=== PATIENT | female | born 1945 | race Caucasian/White ===

== ENCOUNTER 2023-12-16 12:44 | Outpatient (CLI) | payer MEDICARE, SELFPAY | END 2023-12-16 12:45 | disposition home or self-care (01) | LOC: ANHAUDASC 12:45 | PROVIDERS: Visit Provider Otolaryngology | DX: H90.3 Sensorineural hearing loss, bilateral (principal); H60.90 Unspecified otitis externa, unspecified ear | CPT/HCPCS: 92557; 92567 ==

== ENCOUNTER 2024-03-07 10:30 | Outpatient (RCR) | payer SELFPAY | END 2024-04-18 23:59 | disposition home or self-care (01) | LOC: ANHAUDASC 10:30 | PROVIDERS: Visit Provider Otolaryngology | DX: Z46.1 Encounter for fitting and adjustment of hearing aid (principal) | CPT/HCPCS: 99199; V5261; V5264 ==

== ENCOUNTER 2024-08-10 11:42 | Outpatient (CLI) | payer MEDICARE, SELFPAY ==
--- NOTE | ~2024-08-10 | XR_ITS ---
XR hip LT min 2V Ordering provider: SHEELA Stafford History: . M25.552 - Pain in left hip . Comparison: None. FINDINGS: BONES: No acute fracture or dislocation. HIP JOINT SPACES: Mild to moderate osteoarthritic changes. SACROILIAC JOINT SPACES/LUMBAR SPINE: The sacroiliac joint spaces shows sacroiliitis in the left. Mil d degenerative changes of the visualized lower lumbar spine. PUBIC SYMPHYSIS: Normal. SOFT TISSUES: Normal. IMPRESSION: No acute osseous abnormality pelvis and left hip. 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 Left sacroiliitis. Reviewed, dictated and finalized at location A.
== END 2024-08-10 11:43 | disposition home or self-care (01) ==
LOC: GOSHIMG 11:43
PROVIDERS: PCP Clinical Nurse Specialist; Visit Provider Clinical Nurse Specialist
DX: M16.12 Unilateral primary osteoarthritis, left hip (principal)
CPT/HCPCS: 73502

== ENCOUNTER 2024-08-31 11:08 | Emergency (ER) | payer MEDICARE, SELFPAY ==
[2024-08-31 11:19] VITALS: BP 125/62; PULSE 67; RESP 18; TEMP 36.5; O2SAT 99
--- NOTE | 2024-08-31 11:34 | ED_ITS ---
HPI - Ear Problem General Chief complaint: Ear Stated complaint: Ears Irritation Time Seen by Provider: 08/31/24 11:34 Source: patient, RN notes reviewed and old records reviewed Mode of arrival: ambulatory Limitations: no limitations History of Present Illness HPI Narrative: Patient presents requesting that bilateral cerumen impactions be cleared. She reports that her education spec told her to come here yesterday. Denies any pain. No other complaints today Related Data Home Medications Medication Instructions Recorded Confirmed bimatoprost 0.01 % eye drops 1 drp EACH EYE QPM 08/11/23 08/31/24 (Lumigan) famotidine 40 mg tablet 40 mg PO QHS 08/11/23 08/31/24 losartan 25 mg tablet 25 mg PO DAILY 08/11/23 08/31/24 pravastatin 10 mg tablet 10 mg PO DAILY 08/11/23 08/31/24 Allergies Allergy/AdvReac Type Severity Reaction Status Date / Time alprazolam [From Xanax] Allergy Intermediate Unknown Verified 08/31/24 11:14 effexor Allergy Intermediate Unknown Uncoded 08/31/24 11:14 naproxin Allergy Intermediate Unknown Uncoded 08/31/24 11:14 Review of Systems Review of Systems: All systems reviewed & are unremarkable except as noted in HPI and below Constitutional: Constitutional: Reports no additional constitutional complaints ENT: Reports system reviewed and no additional complaints, except as documented and Reports hearing loss Cardiovascular: Cardiovascular: Reports no additional cardiovascular complaints Respiratory: Respiratory: Reports no additional respiratory complaints Gastrointestinal: Gastrointestinal: Reports no additional gastrointestinal complaints PMFSH Past Medical History Medical History Depression GERD (gastroesophageal reflux disease) Hyperlipidemia Hypertension Kidney disorder Overactive bladder Trigger finger Surgical History Surgical History H/O breast biopsy H/O section (~1975) H/O: hysterectomy (~1993) History of carpal tunnel release Family History Family History (Updated 08/29/24 @ 07:34 by Justine Reed CMA) Father Diabetes mellitus Heart disease Mother Heart disease Social History Social History Social History: Caffeine-coffee/tea/soda Smoking status: Never smoker Alcohol intake: never Substance use: never Substance use type: does not use Lack of Transportation: No Lack of Food: Never True Current Housing: I Have Housing Concerned About Future Housing: No Difficulty Paying Gas/Electric Bills: No Difficulty Paying for Meds: No Currently Unemployed: No Education: Bachelor's Degree Difficulty w/ Childcare or Family Care: No Living arrangements: alone Gender identity (if verbalized by the patient): Female Agree to blood products: Yes Comments At the time of my signature, I reviewed and agree with the nursing past medical, surgical, social, and family history. There is no relevant family history pertinent to the patient complaint. Exam Const: General: cooperative, no acute distress, alert and awake Orientation/consciousness: oriented to person, oriented to place and oriented to time HENMT: Head: normal to inspection Ears: Abnormal EAC present cerumen im paction bilateral Resp: Effort & Inspection: normal respiratory effort and able to speak in complete sentences Auscultation: clear to auscultation bilaterally, no crackles, no rales, no rhonchi and no wheezes Cardio: Palpation: normal PMI Rate: regular rate Rhythm: regular rhythm Heart sounds: S1 normal heart sound present and S2 normal heart sound present Neuro: General: oriented to person, oriented to place and oriented to time Cranial nerves: Yes CN's II-XII intact bilaterally Psych: Appearance: grossly normal Thought process: Normal thought process present Insight: Good insight present (Psych) Judgement: Good judgement present (Psych) Course Course Level of Care: Express Care Visit Vital Signs Vital signs: Vital Signs Temperature 97.7 F 08/31/24 11:19 Pulse Rate 67 08/31/24 11:19 Respiratory Rate 18 08/31/24 11:19 Blood Pressure 125/62 08/31/24 11:19 Pulse Oximetry 99 08/31/24 11:19 Oxygen Delivery Room Air 08/31/24 11:19 Temperature 97.7 F 08/31/24 11:19 Pulse Rate 67 08/31/24 11:19 Respiratory Rate 18 08/31/24 11:19 Blood Pressure 125/62 08/31/24 11:19 Pulse Oximetry 99 08/31/24 11:19 Oxygen Delivery Room Air 08/31/24 11:19 Reviewed Procedures Ear Wax Removal Both Ears: Ear Wax Removal Date: 11/22/24 Ear Wax Removal Time: 11:40 Cerumenolytic Used: other Results: Re-examined: cerumen removed completely TM Examination: TM(s) intact, normal appearance Ear Canal Exam: atraumatic Patient Tolerated Procedure: well Complications: no problems Technique: ear canal irrigated and ear canal curetted Medical Decision Making MDM Narrative Medical decision making narrative: Discharge instructions reviewed with patient, as well as provided in writing per nursing staff. The instructions also include specific and strict return/GO TO THE ER as well as f/u information. All questions have been answered, and the patient deny any further questions with discharge and discharge plan. Some parts of this dictation were generated by voice recognition software and may contain typographical and/or grammatical inaccuracies. Medical Records Medical records reviewed: Yes I reviewed the external patient's medical records. Vital Signs Vital Signs: Vital Signs Temperature 97.7 F 08/31/24 11:19 Pulse Rate 67 08/31/24 11:19 Respiratory Rate 18 08/31/24 11:19 Blood Pressure 125/62 08/31/24 11:19 Pulse Oximetry 99 08/31/24 11:19 Oxygen Delivery Room Air 08/31/24 11:19 Temperature 97.7 F 08/31/24 11:19 Pulse Rate 67 08/31/24 11:19 Respiratory Rate 18 08/31/24 11:19 Blood Pressure 125/62 08/31/24 11:19 Pulse Oximetry 99 08/31/24 11:19 Oxygen Delivery Room Air 08/31/24 11:19 reviewed Lab Data Lab results reviewed: Yes I reviewed the patient's lab results. Lab results narrative: reviewed Discharge Plan Discharge Clinical Impression: Bilateral impacted cerumen Patient Disposition: Home, Self-Care Condition: Stable Instructions: Antibiotic Form Additional Instructions: Follow-up as recommended Patient Language: Danish Prescriptions: No Action famotidine 40 mg tablet 40 mg PO QHS pravastatin 10 mg tablet 10 mg PO DAILY losartan 25 mg tablet 25 mg PO DAILY Lumigan 0.01 % drops 1 drp EACH EYE QPM fluocinolone acetonide oil [DermOtic Oil] 0.01 % drops 5 drp RIGHT EAR .COMPLEX Qty: 20 0RF Rx Instructions: 5 drops, right ear, several times per week. Max, 5 drops daily. clotrimazole 1 % solution 1 applic topical BID Qty: 30 2RF Rx Instructions: put 4 drops in each ear b.i.d. with ear up for 1 minute afterwards escitalopram oxalate 10 mg tablet 10 mg PO DAILY Qty: 90 0RF azelastine 137 mcg (0.1 %) aerosol,spray 1 - 2 spray intranasal Q12H Qty: 90 0RF Rx Instructions: administer into each nostril. Aim back/up/out polyethylene glycol 3350 17 gram/dose powder See Rx Instructions .ROUTE .COMPLEX Qty: 510 4RF Dose Instruction: MIX 1 CAPFUL IN 4-8 OZ OF LIQUID ONCE DAILY NEEDED FOR CONSTIPATION Rx Instructions: MIX 1 CAPFUL IN 4-8 OZ OF LIQUID ONCE DAILY NEEDED FOR CONSTIPATION mirabegron [Myrbetriq] 25 mg tablet extended release 24 hr 25 mg PO DAILY Qty: 30 1RF Follow-up/Referrals: Eri Che, SAFETY AND OCCUPATIONAL HEALTH MANAGER-C [Primary Care Provider] - 2 Weeks Time of Disposition: 11:54
== END 2024-08-31 12:10 | disposition home or self-care (01) ==
PROVIDERS: Emergency Provider Nurse Practitioner Family; PCP Clinical Nurse Specialist
DX: H61.23 Impacted cerumen, bilateral (principal); I10 Essential (primary) hypertension; E78.5 Hyperlipidemia, unspecified; Z79.899 Other long term (current) drug therapy
CPT/HCPCS: 69210; 99212; G0463

== ENCOUNTER 2024-11-08 15:19 | Outpatient (NON) | payer MEDICARE, SELFPAY ==
--- OUTSIDE RECORDS SUMMARY | 2024-11-08 15:41 | XMS_ITS | Clinical Summary ---
Author Organization [facility] Address [address] [place] [address] Care Team Providers Care Bunch Breaker Name Role Phone Nemo Luu MD Primary Care Provider [phone] Source Comments [facility],non-owned Affiliates and Associated Physician Practices is amultiple site organization consisting of ambulatory clinics and hospital sitesin [place], [place], [place] and [place]. This disclosure is being madepursuant to the Care Everywhere program and may not contain all information available regarding this patient. Last updated 18.[facility] Encounters Date Type Department Care Team Description 08/20/2024 Lab Requisition [facility] - DermPath Lab [address], [place] [id number] Carroll Jamison MD from Last 3 Months Social History Tobacco Use Types Packs/Day Years Used Date Smoking Tobacco: Never Assessed Sex and Gender Information Value Date Recorded Sex Assigned at Not on file Gender Identity Not on file Sexual Orientation Not on file Plan of Treatment Health Maintenance Due Date Last Done Comments BONE DENSITY TESTING 1945 HEPATITIS C SCREENING 01/17/1964 DTAP/TDAP/TD VACCINES (1 - Tdap) 1965 PNEUMOCOCCAL VACCINE 50+ (1 of 1 - PCV) 01/22/1996 ZOSTER VACCINE (1 of 2) 01/22/1996 Respiratory Syncytial Virus (RSV) Vaccine Pt: or over 60 yrs (1 - 1-dose 75+ series) 2021 COVID-19 VACCINE ( - 2023-2 5 season) 2024 INFLUENZA VACCINE (#1) 2024 DEPRESSION SCREENING 10/10/2024 MEDICARE AWV ? CALENDAR YEAR 2024 HEPATITIS B VACCINE Aged Out No longe r eligible based on patient's age to complete this topic HIB VACCINE Aged Out No longer eligi ble based on patient's age to complete this topic HPV VACCINE Aged Out No longer eligi ble based on patient's age to complete this topic MENINGOCOCCAL (Group B) VACCINE Aged Out No longer eligible based on patient's age to complete this topic MENINGOCOCCAL VACCINE Aged Out No michelle brad eligible based on patient's age to complete this topic Procedures Procedure Name Priority Date/Time Associated Diagnosis Comments DERMATOPATHOLOGY Routine 08/17/2024 12:0 0 AM IT INTERN from Last 3 Months Results * DERMATOPATHOLOGY (08/17/2024 12:00 AM IT INTERN) Case Report Dermatopathology Report ? Case: [id number] ? Authorizing Provider: ??Carroll Jamison MD ?Collected: ? 08/17/2024 12:00 AM ? Ordering Location: ? [facility] - ??Received: ?08/20/2024 02:20 PM ? DermPath Lab ? Pathologist: ? Fifi Harley MD ? Specimen: ?Skin, right posterior base of scalp @ hairline ? 4 3:16 PM [facility] DERMATOPATHOLOGY LABORATORY Final Diagnosis Specimen A. SKIN, right posterior base of scalp @ hairline: RUPTURED EPIDERMOID CYST (L72.0) PRESENT AT MARGIN 4 3:16 PM [facility] DERMATOPATHOLOGY LABORATORY Clinical History R/O BCC vs Cyst Please check margins 4 3:16 PM [facility] DERMATOPATHOLOGY LABORATORY Gross Description Specimen A: Received is one formalin filled container labeled with the patients name and designated right posterior base of scalp @ hairline. The specimen consists of a shave removal measuring 6x5x2 mm. Jar 0. 3:16 PM [facility] DERMATOPATHOLOGY LABORATORY Microscopic Description Specimen A. SKIN, right posterior base of scalp @ hairline: Within the dermis, there is an infiltrate composed of lymphocytes and histiocytes, including multinucleated type giant cells. Some histiocytes contain flakes of material consistent with keratin. This lesion is present at the margin of the specimen. 4 3:16 PM [facility] DERMATOPATHOLOGY LABORATORY Disclaimer An external and internal positive and negative controls are appropriate for the histochemical, immunohistochemical and immunofluorescence stain(s) in this case (if any), except where stated explicitly. The performance characteristics of the stain(s) cited in this report were developed and its performance characteristic determined by the Dermatopathology Laboratory at [facility], directed by Dr. Charlette Arteaga. These tests need not be, and therefore are not, approved by the [place] Food and Drug Administration. The tests are used for clinical purposes. Billing Codes Specimen Charges Stain Charges 14825 1 4 3:16 PM [facility] DERMATOPATHOLOGY LABORATORY Embedded Images 4 3:16 PM [facility] DERMATOPATHOLOGY LABORATORY Pathology/Cytolog y TISSUE SPECIMEN FROM SKIN / Unknown 08/17/2024 08/20/2024 2:20 PM [facility] Carroll Jamison MD LAB - PATHOLOGY/CYTO LOGY ORDERABLES DERMATOPATHOLOGY LABORATORY [facility] - Department of Dermatology [address], [address] Floor [place] [phone] from Last 3 Months Care Teams Bunch Breaker Relationship Specialty Start Date End Date Nemo Luu MD [address] [place] [phone] PCP - General 02/21/15
--- OUTSIDE RECORDS SUMMARY | 2024-11-08 15:41 | XMS_ITS | Patient Health Summary ---
Author Organization [facility] Address [address] [place] [address] Care Team Providers Care Auriculotherapist Name Role Phone Nemo Luu MD Primary Care Provider Note from [facility] [place],non-owned Affiliates and Associated Physician Practices is amultiple site organization consisting of ambulatory clinics and hospital sitesin [place], [place], [place] and [place]. This disclosure is being madepursuant to the Care Everywhere program and may not contain all information available regarding this patient. Last updated 18.[facility] Social History Tobacco Use Types Packs/Day Years Used Date Smoking Tobacco: Never Assessed Sex and Gender Information Value Date Recorded Sex Assigned at Not on file Gender Identity Not on file Sexual Orientation Not on file Procedures * DERMATOPATHOLOGY(Performed 08/17/2024) * DERMATOPATHOLOGY(Performed 02/20/2015) Results * DERMATOPATHOLOGY (08/17/2024 12:00 AM TENNIS INSTRUCTOR) Only the most recent of2 resultswithin the time period is included. Case Report Dermatopathology Report ? Case: [id number] ? Authorizing Provider: ??Carroll Jamison MD ?Collected: ? 08/17/2024 12:00 AM ? Ordering Location: ? [facility] - ??Received: ?08/20/2024 02:20 PM ? DermPath Lab ? Pathologist: ? Fifi Harley MD ? Specimen: ?Skin, right posterior base of scalp @ hairline ? 4 3:16 PM [facility] DERMATOPATHOLOGY LABORATORY Final Diagnosis Specimen A. SKIN, right posterior base of scalp @ hairline: RUPTURED EPIDERMOID CYST (L72.0) PRESENT AT MARGIN 4 3:16 PM [facility] DERMATOPATHOLOGY LABORATORY Clinical History R/O BCC vs Cyst Please check margins 4 3:16 PM [facility] DERMATOPATHOLOGY LABORATORY Gross Description Specimen A: Received is one formalin filled container labeled with the patients name and designated right posterior base of scalp @ hairline. The specimen consists of a shave removal measuring 6x5x2 mm. Jar 0. 4 3:16 PM [facility] DERMATOPATHOLOGY LABORATORY Microscopic Description Specimen A. SKIN, right posterior base of scalp @ hairline: Within the dermis, there is an infiltrate composed of lymphocytes and histiocytes, including multinucleated type giant cells. Some histiocytes contain flakes of material consistent with keratin. This lesion is present at the margin of the specimen. 4 3:16 PM [facility] DERMATOPATHOLOGY LABORATORY Disclaimer An external and internal positive and negative controls are appropriate for the histochemical, immunohistochemical and immunofluorescence stain(s) in this case (if any), except where stated explicitly. The performance characteristics of the stain(s) cited in this report were developed and its performance characteristic determined by the Dermatopathology Laboratory at [facility], directed by Dr. Charlette Arteaga. These tests need not be, and therefore are not, approved by the [place] Food and Drug Administration. The tests are used for clinical purposes. Billing Codes Specimen Charges Stain Charges 53415 1 4 3:16 PM [facility] DERMATOPATHOLOGY LABORATORY Embedded Images 3:16 PM [facility] IN[facility] DERMATOPATHOLOGY LABORATORY Pathology/Cytolog y TISSUE SPECIMEN FROM SKIN / Unknown 08/17/2024 08/20/2024 2:20 PM TENNIS INSTRUCTOR Carroll Jamison MD LAB - PATHOLOGY/CYTO LOGY ORDERABLES DERMATOPATHOLOGY LABORATORY [facility] - Department of Dermatology [facility] Medicine [address] [place] [address], [address] [phone] Care Teams Auriculotherapist Relationship Specialty Start Date End Date Nemo Luu MD [address] [place] [phone] PCP - General 02/21/15
--- OUTSIDE RECORDS SUMMARY | 2024-11-08 15:41 | XMS_ITS | Referral Summary ---
Author Organization [facility] Address [address] [place] [address] Care Team Providers Care Pharmacy Coordinator Name Role Phone Nemo Luu MD Primary Care Provider Source Comments [facility],non-owned Affiliates and Associated Physician Practices is amultiple site organization consisting of ambulatory clinics and hospital sitesin [place], [place], [place] and [place]. This disclosure is being madepursuant to the Care Everywhere program and may not contain all information available regarding this patient. Last updated 18.[facility] Encounters Date Type Department Care Team Description 08/20/2024 Lab Requisition [facility] - DermPath Lab [address] [place] [phone] Carroll Jamison MD from Last 3 Months Social History Tobacco Use Types Packs/Day Years Used Date Smoking Tobacco: Never Assessed Sex and Gender Information Value Date Recorded Sex Assigned at Not on file Gender Identity Not on file Sexual Orientation Not on file Plan of Treatment Not on file Procedures Procedure Name Priority Date/Time Associated Diagnosis Comments DERMATOPATHOLOGY Routine 08/17/2024 12:0 0 AM SENIOR SYSTEMS PROGRAMMER from Last 3 Months Results * DERMATOPATHOLOGY (08/17/2024 12:00 AM SENIOR SYSTEMS PROGRAMMER) Case Report Dermatopathology Report ? Case: [id number] ? Authorizing Provider: ??Carroll Jamison MD ?Collected: ? 08/17/2024 12:00 AM ? Ordering Location: ? [facility] - ??Received: ?08/20/2024 02:20 PM ? DermPath Lab ? Pathologist: ? Fifi Harley MD ? Specimen: ?Skin, right posterior base of scalp @ hairline ? 4 3:16 PM [facility] DERMATOPATHOLOGY LABORATORY Final Diagnosis Specimen A. SKIN, right posterior base of scalp @ hairline: RUPTURED EPIDERMOID CYST (L72.0) PRESENT AT MARGIN 4 3:16 PM [facility] DERMATOPATHOLOGY LABORATORY Clinical History R/O BCC vs Cyst Please check margins 4 3:16 PM [facility] DERMATOPATHOLOGY LABORATORY Gross Description Specimen A: Received is one formalin filled container labeled with the patients name and designated right posterior base of scalp @ hairline. The specimen consists of a shave removal measuring 6x5x2 mm. Jar 0. 4 3:16 PM [facility] DERMATOPATHOLOGY LABORATORY Microscopic Description Specimen A. SKIN, right posterior base of scalp @ hairline: Within the dermis, there is an infiltrate composed of lymphocytes and histiocytes, including multinucleated type giant cells. Some histiocytes contain flakes of material consistent with keratin. This lesion is present at the margin of the specimen. 4 3:16 PM SENIOR SYSTEMS PROGRAMMER DERMATOPATHOLOGY LABORATORY Disclaimer An external and internal positive and negative controls are appropriate for the histochemical, immunohistochemical and immunofluorescence stain(s) in this case (if any), except where stated explicitly. The performance characteristics of the stain(s) cited in this report were developed and its performance characteristic determined by the Dermatopathology Laboratory at [facility], directed by Dr. Charlette Arteaga. These tests need not be, and therefore are not, approved by the [place] Food and Drug Administration. The tests are used for clinical purposes. Billing Codes Specimen Charges Stain Charges 27179 1 4 3:16 PM SENIOR SYSTEMS PROGRAMMER DERMATOPATHOLOGY LABORATORY Embedded Images 4 3:16 PM SENIOR SYSTEMS PROGRAMMER DERMATOPATHOLOGY LABORATORY Pathology/Cytolog y TISSUE SPECIMEN FROM SKIN / Unknown 08/17/2024 08/20/2024 2:20 PM SENIOR SYSTEMS PROGRAMMER Carroll Jamison MD LAB - PATHOLOGY/CYTO LOGY ORDERABLES Performing Organization Address City/State/[facility] Co de Phone Number DERMATOPATHOLOGY LABORATORY [facility] - Department of Dermatology [facility] Medicine [address] [place] [address], [address] [phone] from Last 3 Months Care Teams Pharmacy Coordinator Relationship Specialty Start Date End Date Nemo Luu MD [address] [facility] [address] [place] [phone] PCP - General 02/21/15
--- OUTSIDE RECORDS SUMMARY | 2024-11-08 15:41 | XMS_ITS | Clinical Summary ---
Author Organization [facility] Address [address] [place] [address] Phone Care Team Providers Care Clinical Documentation Clerk Name Role Phone Deepthi Benites MD Primary Care Provider Allergies No known active allergies Medications Medication Sig Dispensed Refills Start Date End Date Status B Bwppnur-Xwfjjo-PU (SUPER B-50 B COMPLEX) capsule 11/22/2012 Active citalopram (CeleXA) 20 MG tablet 1 tablet (20 mg) orally daily 0 09/22/2016 Active bimatoprost (LUMIGAN) 0.01 % ophthalmic drops 11/22/2012 Active L-Lysine 1000 MG tablet 11/22/2012 Active calcium citrate (CALCITRATE) 950 MG tablet 1 bid 11/22/2012 Active Multiple Vitamin (MULTIVITAMIN) capsule 11/22/2012 Ac tive pravastatin (PRAVACHOL) 10 MG tablet 1 daily 12 10/11/2017 Active hyoscyamine (ANASPAZ) 0.125 MG disintegrating tablet 11/22/2012 Act angeline omega-3 (FISH OIL) 1000 MG capsule 11/22/2012 Active losartan (COZAAR) 25 MG tablet 1 tab/cap qday 3 02/20/2014 Active tolterodine LA (DETROL LA) 4 MG 24 hr capsule 1 capsule (4 mg) orally daily 0 09/22/2016 Active FLUZONE HIGH-DOSE 0.5 ML suspension prefilled syringe ADM 0.5ML IM UTD 0 07/30/2019 A ctive HYDROcodone-acetaminop hen (NORCO) 5-325 MG per tablet hydrocodone 5 mg-acetaminophen 325 mg tablet Active fluticasone (FLONASE) 50 MCG/ACT nasal spray fluticasone propionate 50 mcg/actuation nasal spray,suspension Active Active Problems Problem Noted Date Diagnosed Date Vitamin D deficiency 09/08/2019 Hyperlipidemia 10/23/2014 Chronic kidney disease, stage 3 (moderate) 11/20 Pain in joint 11/20/2012 Immunizations Name Administration Dates Next Due Influenza Split High Dose Pr eservative Free IM 09/20/2017,07/30/2016 Influenza TIV (IM) 07/18/2015,07/23/2014 Influenza, Injectable, Quadrivalent 07/30/2019 Pneumococcal Conjugate 13-Valent 12/13/2016 Pneumococcal Polysaccharide 07/25/2012, 6,09/27/2000 Tdap 04/03/2013 Zoster 06/18/2008 Family History Medical History Relation Comments Coronary arteriosclerosis Mother Anemia Neg Hx Cerebrovascular accident Neg Hx Diabetes mellitus Neg Hx Dyslipidemia Neg Hx Heart disease Neg Hx Hypertensive disorder Neg Hx Kidney disease Neg Hx Kidney stone Neg Hx Malignant neoplastic disease Neg Hx Relation Status Comments Mother Social History Tobacco Use Types Packs/Day Years Used Date Smoking Tobacco: Never Smokeless Tobacco: Never Alcohol Use Standard Drinks/Week Comments Not Currently 0 (1 standard drink = 0.6 oz pur e alcohol) Sex and Gender Information Value Date Recorded Sex Assigned at Not on file Gender Identity Not on file Sexual Orientation Not on file Last Filed Vital Signs Vital Sign Reading Time Taken Comments Blood Pressure 128/70 09/12/2019 1:05 PM MANUSCRIPTS CURATOR Pulse 84 09/12/2019 1:05 PM MANUSCRIPTS CURATOR Temperature 35.7 ??C (96.3 ??F) 09/12/2019 1:05 PM CS T Respiratory Rate 14 11/20/2012 12:01 AM MANUSCRIPTS CURATOR Oxygen Saturation - - Inhaled Oxygen Concentration - - Weight 65.3 kg (144 lb) 09/12/2019 1:05 PM MANUSCRIPTS CURATOR Height 154.9 cm (5' 1 ) 09/12/2019 1:05 PM MANUSCRIPTS CURATOR Body Mass Index 27.21 09/12/2019 1:05 PM MANUSCRIPTS CURATOR Plan of Treatment Health Maintenance Due Date Last Done Comments Influenza Vaccine (#1) 2024 07/18/2015, 2013 Pneumococcal PPSV23/PCV13 65 + Years / Low and Medium Risk Completed 12/13/2016, 07/25/2012, 07/10/2006, Additional history exists Care Teams Clinical Documentation Clerk Relationship Specialty Start Date End Date Deepthi Benites MD [address] [place] [phone] PCP - General Internal Medicine 09/12/19
--- OUTSIDE RECORDS SUMMARY | 2024-11-08 15:41 | XMS_ITS | Encounter Summary ---
Author Organization [facility] Address [address] [place] [address] Care Team Providers Care Corporate Compliance Officer Name Role Phone Nemo Luu MD Primary Care Provider [phone] Encounter Details Date Type Department Care Team (Late st Contact Info) Description 08/20/2024 Lab Requisition [facility] - DermPath Lab [address] [facility] [place] [address] Carroll Jamison MD [address] [place] [address] Social History Tobacco Use Types Packs/Day Years Used Date Smoking Tobacco: Never Assessed Sex and Gender Information Value Date Recorded Sex Assigned at Not on file Gender Identity Not on file Sexual Orientation Not on file documented as of this encounter Plan of Treatment Not on file documented as of this encounter Procedures Procedure Name Priority Date/Time Associated Diagnosis Comments DERMATOPATHOLOGY Routine 08/17/2024 12:0 0 AM METAL HANGER documented in this encounter Results * DERMATOPATHOLOGY (08/17/2024 12:00 AM METAL HANGER) Case Report Dermatopathology Report ? Case: [id number] ? Authorizing Provider: ??Carroll Jamison MD ?Collected: ? 08/17/2024 12:00 AM ? Ordering Location: ? [facility] - ??Received: ?08/20/2024 02:20 PM ? DermPath Lab ? Pathologist: ? Fifi Harley MD ? Specimen: ?Skin, right posterior base of scalp @ hairline ? 4 3:16 PM [facility] DERMATOPATHOLOGY LABORATORY Final Diagnosis Specimen A. SKIN, right posterior base of scalp @ hairline: RUPTURED EPIDERMOID CYST (L72.0) PRESENT AT MARGIN 4 3:16 PM [facility] DERMATOPATHOLOGY LABORATORY Clinical History R/O BCC vs Cyst Please check margins 4 3:16 PM [facility] DERMATOPATHOLOGY [facility]ORATORY Gross Description Specimen A: Received is one formalin filled container labeled with the patients name and designated right posterior base of scalp @ hairline. The specimen consists of a shave removal measuring 6x5x2 mm. Jar 0. 4 3:16 PM [facility] DERMATOPATHOLOGY LABORATORY Microscopic Description Specimen A. SKIN, right posterior base of scalp @ hairline: Within the dermis, there is an infiltrate composed of lymphocytes and histiocytes, including multinucleated type giant cells. Some histiocytes contain flakes of material consistent with keratin. This lesion is present at the margin of the specimen. 4 3:16 PM [facility] DERMATOPATHOLOGY [facility]ORATORY Disclaimer An external and internal positive and negative controls are appropriate for the histochemical, immunohistochemical and immunofluorescence stain(s) in this case (if any), except where stated explicitly. The performance characteristics of the stain(s) cited in this report were developed and its performance characteristic determined by the Dermatopathology Laboratory at [facility], directed by Dr. Charlette Arteaga. These tests need not be, and therefore are not, approved by the [place] Food and Drug Administration. The tests are used for clinical purposes. Billing Codes Specimen Charges Stain Charges 60034 1 4 3:16 PM [facility] DERMATOPATHOLOGY LABORATORY Embedded Images 4 3:16 PM [facility] DERMATOPATHOLOGY LABORATORY Pathology/Cytolog y TISSUE SPECIMEN FROM SKIN / Unknown 08/17/2024 08/20/2024 2:20 PM METAL HANGER Carroll Jamison MD LAB - PATHOLOGY/CYTO LOGY ORDERABLES DERMATOPATHOLOGY LABORATORY [facility] - Department of Dermatology [facility] Medicine [address] [place] [address], [address] [phone] documented in this encounter Visit Diagnoses Not on filedocumented in this encounter Care Teams Corporate Compliance Officer Relationship Specialty Start Date End Date Nemo Luu MD [address] [place] [phone] PCP - General 02/21/15 documented as of this encounter
== END 2024-11-08 15:20 | disposition home or self-care (01) ==
LOC: ANHGOSHLAB 15:20
PROVIDERS: PCP Internal Medicine; Visit Provider Student in an Organized Health Care Education/Training Program
DX: R39.9 Unspecified symptoms and signs involving the genitourinary system (principal)
CPT/HCPCS: 87086; 87186

== ENCOUNTER 2024-11-15 10:28 | Outpatient (CLI) | payer MEDICARE, SELFPAY ==
--- NOTE | ~2024-11-15 | MM_ITS ---
EXAMINATION: MM screening toi BI w compa HISTORY: Screening TECHNIQUE: Craniocaudal and mediolateral oblique 3-D tomosynthesis images were obtained and synthetic 2-D images were generated. CAD analysis was submitted and interpreted. COMPARISON: No prior mammogram is available for comparison at this institution. BREAST PARENCHYMAL COMPOSITION: Not dense: There are scattered areas of fibroglandular density. FINDINGS: There are bilateral asymmetries in the upper outer aspect of both breasts. There are no hebert picious calcifications in either breast. No skin thickening. IMPRESSION: 1. Bilateral breast asymmetries. 2. Additional mammographic views and possible breast ultrasound are recommended. BI-RADS Category 0: Incomplete: Needs additional imaging evaluation. Reviewed, dictated and finalized at location B. R TOBACCO PROCESSING SUPERVISOR IMPRESSION: 1. Bilateral breast asymmetries. 2. Additional mammographic views and possible breast ultrasound are recommended . BI-RADS Category 0: Incomplete: Needs additional imaging evaluation.
--- OUTSIDE RECORDS SUMMARY | 2024-11-15 10:52 | XMS_ITS | Encounter Summary ---
Author Organization [facility] Address [address] [place] [address] Care Team Providers Care Director Medical Surgical Name Role Phone Nemo Luu MD Primary Care Provider Encounter Details Date Type Department Care Team (Late st Contact Info) Description 08/20/2024 Lab Requisition [facility] - DermPath Lab [address] [place] [address] Carroll Jamison MD [address] [place], [place] [id number] Social History Tobacco Use Types Packs/Day Years [...] Comments DERMATOPATHOLOGY Routine 08/17/2024 12:0 0 AM BANQUET COORDINATOR documented in this encounter Results * DERMATOPATHOLOGY (08/17/2024 12:00 AM BANQUET COORDINATOR) Case Report Dermatopathology Report Case: [id number] Authorizing Provider: Carroll Jamison MD Collected: 08/17/2024 12:00 AM Ordering Location: [facility] - Received: 08/20/2024 02:20 PM DermPath Lab Pathologist: Fifi Harley MD Specimen: Skin, right posterior base of scalp @ hairline 4 3:16 PM BANQUET COORDINATOR DERMATOPATHOLOGY LABORATORY Final Diagnosis Specimen A. SKIN, right posterior base of scalp @ hairline: RUPTURED EPIDERMOID CYST (L72.0) PRESENT AT MARGIN 4 3:16 PM BANQUET COORDINATOR DERMATOPATHOLOGY LABORATORY Clinical History R/O BCC vs Cyst Please check margins 3:16 PM [facility] DERMATOPATHOLOGY LABORATORY Gross Description Specimen A: Received is one formalin filled container labeled with the patients name and designated right posterior base of scalp @ hairline. The specimen consists of a shave removal measuring 6x5x2 mm. Jar 0. 3:16 PM [facility] DERMATOPATHOLOGY LABORATORY Microscopic Description Specimen A. SKIN, right posterior base of scalp @ hairline: Within the dermis, there is an infiltrate composed of lymphocytes and histiocytes, including multinucleated type giant cells. Some histiocytes contain flakes of material consistent with keratin. This lesion is present at the margin of the specimen. 3:16 PM [facility] DERMATOPATHOLOGY LABORATORY Disclaimer An external and internal positive and negative controls are appropriate for the histochemical, immunohistochemical and immunofluorescence stain(s) in this case (if any), except where stated explicitly. The performance characteristics of the stain(s) cited in this report were developed and its performance characteristic determined by the Dermatopathology Laboratory at [facility], directed by Dr. Charlette Arteaga. These tests need not be, and therefore are not, approved by the [place] Food and Drug Administration. The tests are used for clinical purposes. Billing Codes Specimen Charges Stain Charges 19001 1 3:16 PM [facility] DERMATOPATHOLOGY LABORATORY Embedded Images 3:16 PM [facility] DERMATOPATHOLOGY LABORATORY Pathology/Cytolog y TISSUE SPECIMEN FROM SKIN / Unknown 08/17/2024 08/20/2024 2:20 PM BANQUET COORDINATOR Carroll Jamison MD LAB - PATHOLOGY/CYTO LOGY ORDERABLES DERMATOPATHOLOGY LABORATORY [facility] - Department of Dermatology [facility] [address] [place] [address], [address] [phone] documented in this encounter Visit Diagnoses Not on filedocumented in this encounter Care Teams Director Medical Surgical Relationship Specialty Start Date End Date Nemo Luu MD [address] [place] [address] [address] [place] [phone] PCP - General 02/21/15 documented as of this encounter
--- OUTSIDE RECORDS SUMMARY | 2024-11-15 10:52 | XMS_ITS | Referral Summary ---
Author Organization [facility] Address [address] [facility] [place] [address] Care Team Providers Care Case Monitor Name Role Phone Nemo Luu MD Primary Care Provider Source Comments [facility],non-owned Affiliates and Associated Physician Practices is amultiple site organization consisting of ambulatory clinics and hospital sitesin [place], [place], [place] and [place]. This disclosure is being madepursuant to the Care Everywhere program and may not contain all information available regarding this patient. Last updated 18.[facility] Encounters Date Type Department Care Team Description 08/20/2024 Lab Requisition [facility] - DermPath Lab [address] [facility], [place] [phone] Carroll Jamison MD from Last 3 Months Social History Tobacco Use Types Packs/Day Years Used Date Smoking Tobacco: Never Assessed Sex and Gender Information Value Date Recorded Sex Assigned at Not on file Gender Identity Not on file Sexual Orientation Not on file Plan of Treatment Not on file Procedures Procedure Name Priority Date/Time Associated Diagnosis Comments DERMATOPATHOLOGY Routine 08/17/2024 12:0 0 AM CUT IN STATION OPERATOR from Last 3 Months Results * DERMATOPATHOLOGY (08/17/2024 12:00 AM CUT IN STATION OPERATOR) Case Report Dermatopathology Report Case: [id number] Authorizing Provider: Carroll Jamison MD Collected: 08/17/2024 12:00 AM Ordering Location: [facility] - Received: 08/20/2024 02:20 PM DermPath Lab Pathologist: Fifi Harley MD Specimen: Skin, right posterior base of scalp @ hairline 3:16 PM CUT IN STATION OPERATOR DERMATOPATHOLOGY LABORATORY Final Diagnosis Specimen A. SKIN, right posterior base of scalp @ hairline: RUPTURED EPIDERMOID CYST (L72.0) PRESENT AT MARGIN 3:16 PM CUT IN STATION OPERATOR DERMATOPATHOLOGY LABORATORY Clinical History R/O BCC vs Cyst Please check margins 3:16 PM [facility]ERMAT[facility] Gross Description Specimen A: Received is one formalin filled container labeled with the patients name and designated right posterior base of scalp @ hairline. The specimen consists of a shave removal measuring 6x5x2 mm. Jar 0. 3:16 PM [facility] DERMATOPATH[facility]Y LABORAT[facility] Microscopic Description Specimen A. SKIN, right posterior base of scalp @ hairline: Within the dermis, there is an infiltrate composed of lymphocytes and histiocytes, including multinucleated type giant cells. Some histiocytes contain flakes of material consistent with keratin. This lesion is present at the margin of the specimen. 3:16 PM CUT IN STATION OPERATOR DERMATOPATHOLOGY LABORATORY Disclaimer An external and internal positive and negative controls are appropriate for the histochemical, immunohistochemical and immunofluorescence stain(s) in this case (if any), except where stated explicitly. The performance characteristics of the stain(s) cited in this report were developed and its performance characteristic determined by the Dermatopathology Laboratory at [facility], directed by Dr. Charlette Artaega. These tests need not be, and therefore are not, approved by the [place] Food and Drug Administration. The tests are used for clinical purposes. Billing Codes Specimen Charges Stain Charges 92582 1 3:16 PM CUT IN STATION OPERATOR DERMATOPATHOLOGY LABORATORY Embedded Images 4 3:16 PM [facility]ERMATOPATH[facility] Pathology/Cytolog y TISSUE SPECIMEN FROM SKIN / Unknown 08/17/2024 08/20/2024 2:20 PM CUT IN STATION OPERATOR Carroll Jamison MD LAB - PATHOLOGY/CYTO LOGY ORDERABLES DERMATOPATHOLOGY LABORATORY [facility] - Department of Dermatology [address] [place] [address], [facility] [phone] from Last 3 Months Care Teams Case Monitor Relationship Specialty Start Date End Date Nemo Luu MD [address] [place] [phone] PCP - General 02/21/15
--- OUTSIDE RECORDS SUMMARY | 2024-11-15 10:52 | XMS_ITS | Clinical Summary ---
Author Organization [facility] Address [address] [facility] [place] [address] Care Team Providers Care Marine Engineering Consultant Name Role Phone Nemo Luu MD Primary Care Provider Source Comments [facility],non-owned Affiliates and Associated Physician Practices is amultiple site organization consisting of ambulatory clinics and hospital sitesin [place], [place], [place] and [place]. This disclosure is being madepursuant to the Care Everywhere program and may not contain all information available regarding this patient. Last updated 18.[facility] Encounters Date Type Department Care Team Description 08/20/2024 Lab Requisition [facility] - DermPath Lab [address] [facility], [place] [phone] Carroll Jamison MD from Last 3 Months [...] (#1) 2024 DEPRESSION SCREENING 10/10/2024 MEDICARE AWV CALENDAR YEAR 2024 HEPATITIS B VACCINE Aged [...] Comments DERMATOPATHOLOGY Routine 08/17/2024 12:0 0 AM CONSTRUCTION COST ESTIMATOR from Last 3 Months Results * DERMATOPATHOLOGY (08/17/2024 12:00 AM CONSTRUCTION COST ESTIMATOR) Case Report Dermatopathology Report Case: [id number] Authorizing Provider: Carroll Jamison MD Collected: 08/17/2024 12:00 AM Ordering Location: [facility] - Received: 08/20/2024 02:20 PM DermPath Lab Pathologist: Fifi Harley MD Specimen: Skin, right posterior base of scalp @ hairline 3:16 PM CONSTRUCTION COST ESTIMATOR DERMATOPATHOLOGY LABORATORY Final Diagnosis Specimen A. SKIN, right posterior base of scalp @ hairline: RUPTURED EPIDERMOID CYST (L72.0) PRESENT AT MARGIN 3:16 PM CONSTRUCTION COST ESTIMATOR DERMATOPATHOLOGY LABORATORY Clinical History R/O BCC vs Cyst Please check margins 3:16 PM [facility] DERMATOPATHOLOGY LABORATORY Gross Description Specimen A: Received is one formalin filled container labeled with the patients name and designated right posterior base of scalp @ hairline. The specimen consists of a shave removal measuring 6x5x2 mm. Jar 0. 3:16 PM CONSTRUCTION COST ESTIMATOR DERMATOPATHOLOGY LABORATORY Microscopic Description Specimen A. SKIN, right posterior base of scalp @ hairline: Within the dermis, there is an infiltrate composed of lymphocytes and histiocytes, including multinucleated type giant cells. Some histiocytes contain flakes of material consistent with keratin. This lesion is present at the margin of the specimen. 3:16 PM [facility] DERMATOPATHOLOGY LABORATORY Disclaimer An external and internal positive and negative controls are appropriate for the histochemical, immunohistochemical and immunofluorescence stain(s) in this case (if any), except where stated explicitly. The performance characteristics of the stain(s) cited in this report were developed and its performance characteristic determined by the Dermatopathology Laboratory at [facility], directed by Dr. Charlette Arteaga. These tests need not be, and therefore are not, approved by the [place] Food and Drug Administration. The tests are used for clinical purposes. Billing Codes Specimen Charges Stain Charges 42488 1 4 3:16 PM CONSTRUCTION COST ESTIMATOR DERMATOPATHOLOGY LABORATORY Embedded Images 4 3:16 PM CONSTRUCTION COST ESTIMATOR DERMATOPATHOLOGY LABORATORY Pathology/Cytolog y TISSUE SPECIMEN FROM SKIN / Unknown 08/17/2024 08/20/2024 2:20 PM CONSTRUCTION COST ESTIMATOR Carroll Jamison MD LAB - PATHOLOGY/CYTO LOGY ORDERABLES Performing Organization Address City/State/[facility] Co de Phone Number DERMATOPATHOLOGY LABORATORY [facility] - Department of Dermatology [address], [address] [phone] from Last 3 Months Care Teams Marine Engineering Consultant Relationship Specialty Start Date End Date Nemo Luu MD [address] [place] [phone] PCP - General 02/21/15
--- OUTSIDE RECORDS SUMMARY | 2024-11-15 10:52 | XMS_ITS | Patient Health Summary ---
Author Organization [facility] Address [address] [facility] [place] [address] Care Team Providers Care Diagram Clerk Name Role Phone Nemo Luu MD Primary Care Provider Note from [facility],non-owned Affiliates and Associated Physician Practices is amultiple site organization consisting of ambulatory clinics and hospital sitesin [place], [place], [place] and [place]. This disclosure is being madepursuant to the Care Everywhere program and may not contain all information available regarding this patient. Last updated 18.[facility] Social History Tobacco Use Types Packs/Day Years Used Date Smoking Tobacco: Never Assessed Sex and Gender Information Value Date Recorded Sex Assigned at Not on file Gender Identity Not on file Sexual Orientation Not on file Procedures * DERMATOPATHOLOGY(Performed 08/17/2024) * DERMATOPATHOLOGY(Performed 02/20/2015) Results * DERMATOPATHOLOGY (08/17/2024 12:00 AM CHEMIST ORGANIC) Only the most recent of2 resultswithin the time period is included. Case Report Dermatopathology Report Case: [id number] Authorizing Provider: Carroll Jamison MD Collected: 08/17/2024 12:00 AM Ordering Location: [facility] - Received: 08/20/2024 02:20 PM DermPath Lab Pathologist: Fifi Harley MD Specimen: Skin, right posterior base of scalp @ hairline 4 3:16 PM CHEMIST ORGANIC DERMATOPATHOLOGY LABORATORY Final Diagnosis Specimen A. SKIN, right posterior base of scalp @ hairline: RUPTURED EPIDERMOID CYST (L72.0) PRESENT AT MARGIN 4 3:16 PM CHEMIST ORGANIC DERMATOPATHOLOGY LABORATORY Clinical History R/O BCC vs Cyst Please check margins 3:16 PM [facility] DERMATOPATHOLOGY LABORATORY Gross Description Specimen A: Received is one formalin filled container labeled with the patients name and designated right posterior base of scalp @ hairline. The specimen consists of a shave removal measuring 6x5x2 mm. Jar 0. 3:16 PM [facility] DERMATOPATHOLOGY LABORATORY Microscopic Description Specimen A. SKIN, right posterior base of scalp @ hairline: Within the dermis, there is an infiltrate composed of lymphocytes and histiocytes, including multinucleated type giant cells. Some histiocytes contain flakes of material consistent with keratin. This lesion is present at the margin of the specimen. 3:16 PM [facility] DERMATOPATHOLOGY LABORATORY Disclaimer An external and internal positive and negative controls are appropriate for the histochemical, immunohistochemical and immunofluorescence stain(s) in this case (if any), except where stated explicitly. The performance characteristics of the stain(s) cited in this report were developed and its performance characteristic determined by the Dermatopathology Laboratory at [facility], directed by Dr. Charlette Arteaga. These tests need not be, and therefore are not, approved by the [place] Food and Drug Administration. The tests are used for clinical purposes. Billing Codes Specimen Charges Stain Charges 29367 1 3:16 PM [facility] DERMATOPATHOLOGY LABORATORY Embedded Images 3:16 PM [facility] DERMATOPATHOLOGY LABORATORY Pathology/Cytolog y TISSUE SPECIMEN FROM SKIN / Unknown 08/17/2024 08/20/2024 2:20 PM CHEMIST ORGANIC Carroll Jamison MD LAB - PATHOLOGY/CYTO LOGY ORDERABLES DERMATOPATHOLOGY LABORATORY [facility] - Department of Dermatology [facility] Medicine [address] [place] [address], [address] [phone] Care Teams Diagram Clerk Relationship Specialty Start Date End Date Nemo Luu MD [address] [facility] [address] [place] [phone] PCP - General 02/21/15
--- OUTSIDE RECORDS SUMMARY | 2024-11-15 10:52 | XMS_ITS | Data Portability ---
Author Organization [facility] Morris PETERSON_Bernarda_ Address [address] [place] [address] Assessment No assessment recorded. Plan of Treatment Reminders Order Date Submit Date Provider Last Modified By Organization Details Last Modified Time Details Appointments None recorded. Lab rapid strep group A, throat 2017 018 [email or web address] In-Office Order, Internal Use Only DO Not Attach Compendium DO Not Attach Compendium, Do Not Delete/merge, [id number] 8 13:50:23 Referral None recorded. Procedures pulse oximetry (PROC) 2017 018 [email or web address] In-Office Order, Internal Use Only DO Not Attach Compendium DO Not Attach Compendium, Do Not Delete/merge, [id number] 8 13:50:23 Surgeries None recorded. Imaging None recorded. Medication Orders fluticason e propionate 50 mcg/actuat ion nasal spray,susp ension 2017 018 [facility]FACE [id number], [address] [place], [address], 8 14:00:58 azithromyc in 250 mg tablet 2017 018 INTERFACE [id number], [address] [place], [address], 8 14:08:12 Patient TargetsNo targets recorded. Patient InstructionsNo instructions recorded. Reason for Referral None Reported. Results Created Date Observation Date Name Description Value Unit Range Abnormal Flag Note LastModifiedBy Organization Detail LastModifiedTime 01/22/20 18 2018 rapid strep group A, throa t Strep negati ve Not Available In-Office Order Internal Use Only DO Not Attach Compendium DO Not Attach Compendium, Do Not Delete/merge, [id number] 2018 13:38:31 01/22/20 18 2018 pulse oxime try (PROC ) pulse oximetry 97% room air at rest Not Available In-Office Order Internal Use Only DO Not Attach Compendium DO Not Attach Compendium, Do Not Delete/merge, [id number] 2018 13:38:04 Result Notes None recorded. Problems Name Problem SNOMED Code Status Onset Date Resolution Date Notes Provider Name and Address Organization Details Recorded Time Kidney disease 78644141 Active 018 Mandy haque [place] - [facility] 2018 13:28:52 Problem Notes None recorded. Procedures Surgical History Date Name Laterality Status Provider Name and Address Organization Details Recorded Time Carpal tunnel surgery completed [place]amy [place] [facility] 2018 13:57:29 Breast Biopsy completed [place] [facility] 2018 13:57:37 delivery completed [place]amy [place] [facility] 2018 13:57:57 Hysterectomy [place] [facility] 2018 13:58:36 Imaging Results None recorded. Procedure Notes None recorded. Medical Equipment None Reported. Allergies No known drug allergies Medications Name Sig Start Date Stop Date Status Note LastModified by Organization Details LastModified Time azithromycin 250 mg tablet TAKE 2 TABLETS (500 MG) BY ORAL ROUTE ONCE DAILY FOR 1 DAY THEN 1 TABLET (250 MG) BY ORAL ROUTE ONCE DAILY FOR 4 DAYS 2017 active Not Available Not Available Not Avai lable fluticasone propionate 50 mcg/actuatio n nasal spray,suspen jacques Administer 1 to 2 sprays in each nostril daily prn 2017 active Not Available Not Available Not Avai lable Vitals Date Recorded Body height Body mass index (BMI) Body weight Heart rate Body temperature Oxygen saturation Oxygen saturation in Arterial blood by Pulse oximetry Respiratory rate Systolic blood pressure Diastolic blood pressure Provider Name and Address Organization Details Last Updated DateTime 8 154.94 cm 27 kg/m2 09717.9 9 g 79 /min 99.1 [degF] 97 % 97 % min 114 mm[Hg] 68 mm[Hg] Mandy Bellamy [place] - [facility] 8 13:27:32 Social History Question Answer Notes LastModified by Organizat ion Details LastModified Time Tobacco Smoking Status Never Smoker Mandy Bellamy [place], [facility] 2018 13:56:23 Do You Have An Advance Directive? No [email or web address] Information not available 2018 What Is Your Level Of Alcohol Consumption? None [email or web address] Information not available 2018 What Is Your Level Of Caffeine Consumption? Moderate [email or web address] Information not available 2018 How Much Tobacco Do You Chew? None Information not available 2018 What Type Of Diet Are You Following? REGULAR Information not available 2018 Which Illicit Or Recreational Drugs Have You Used? None [email or web address] Information not available 2018 Have You Directly Handled Bats, Rodents, Or Primates From Ebola Endemic Areas? No [email or web address] Information not available 2018 Have You Had Contact With Blood, Bodily Fluids, Or Human Remains Of A Patient Known To Have Or Suspected To Have Ebola Virus Disease? No [email or web address] Information not available 2018 Do You Reside In Or Have You Traveled To An Area Where Ebola Virus Transmission Is Active? No [email or web address] Information not available 2018 Education 4 Year College [email or web address] Information not available 2018 What Is Your Occupation? Retired [email or web address] Information not available 2018 Live Alone Or With Others? Alone [email or web address] Information not available 2018 Marital Status [email or web address] Informatio n not available 2018 What Was The Date Of Your Most Recent Tobacco Screening? 2018 Information not available 05/03/2019 How Much Tobacco Do You Smoke? No [email or web address] Information not available 2018 How Many Years Have You Smoked Tobacco? 0 [email or web address] Information not available 2018 Work Related Injury? No [email or web address] Information not available 2018 Sex: Unknown Functional Status Question Answer Note LastModified by Organization D etails LastModified Time What is your exercise level? Moderate [email or web address] Information not available 2018 Mental Status None recorded. Family History Nothing Reported. Medical History Condition Response Coronary Artery Disease N Gout N Kidney Stones N Hyperthyroidism N Erectile Dysfunction N Depression N COPD N Hypothyroidism N Developmental or Behavioral Disorders N Has Pacemaker N Diabetes - Non-insulin N Eczema, Hives or other skin conditions N Anxiety Disorder N Muscle, Joint, or Bone Problems N Vision or Eye Problems N Arthritis N Congenital Anomalies N Cancer N Stroke N Bladder or Kidney Problems N High Cholesterol N Liver Disease N Fibromyalgia N Dialysis N Kidney Disease Y Ear or Hearing Problems N Leg/Foot Ulcer N Hypogonadism N ADD or ADHD N Thyroid Problems N Skin Problems N Anemia N Constipation N Blood Clots or DVT N Diabetes N Bleeding Disorder N Seizures/Epilepsy N Diabetes - Insulin N Tuberculosis N Diverticulitis N Heart Attack N Asthma N Allergies N GERD/Reflux N Heart Disease N Pulmonary Embolism N Hypertension N Osteoporosis N Gynecological HistoryNo gynecological history recorded. Obstetrics History GPAL:G 0 P 0 0 0 0 Past Encounters Encounter ID Performer Location Encounter Start Date Encounter Closed Date Diagnosis/Indication Diagnosis SNOMED-CT Code Diagnosis ICD10 Code Diagnosis Note [id number] [facility] [place] [address] [place] [address] [place] [address] 2018 13:16:28 2018 14:07:00 Acute pharyngitis 214740872 J02.9 Complete antibiotic . Return to clinic should s/s worsen or not resolve. Advised to use OTC tylenol for sore throat and saline gargles. Seasonal a llergic rhinitis 420446966 J30.2 Use medication as directed. Health Concerns Section Related Observation LastModified by Organization Detai ls LastModified Time None Recorded Concern Status LastModified by Organization Details LastModified Time None Recorded Advance Directives Directive N: Payers Encounter Date Sequence Insurance Name Policy Number Policy Welsh Covered Member ID Welsh Member ID Guarantor Name 2018 1 [facility] [id number] Meme Temple [id number] Meme Temple Notes Date Note Type Note Provider Name and Address Organization Details Recorded Time 2018 text/html Sore ThroatRepor kendall bypatient.Location:b [place] Onset/Timing:sudden Duration:started 1 day(s) ago Quality:painful;diff iculty swallowing;hoarsenes s;dull; scratchy Severity:moderate Context:no tick/insect bites; no new medications; no one else with similar symptoms Associated Symptoms:no fever; no nausea; no vomiting; no choking; no rash;cough;throat hoarseness;itching throat 73 YO female presents today for sore throat x 1 day. Mari Angela [facility], [facility] 2018 14:23:21 OBGyn Episode No OBEpisode recorded.
--- OUTSIDE RECORDS SUMMARY | 2024-11-15 10:52 | XMS_ITS | Clinical Summary ---
Author Organization [facility] Ivania narvaez Address [address] [place] [id number] Phone Care Team Providers Care Dance Historian Name Role Phone Deepthi Benites MD Primary Care Provider Allergies No known active allergies Medications Medication Sig Dispensed Refills Start Date End Date Status B Gw[place]ixi-Nilsrx-SC (SUPER B-50 B COMPLEX) capsule 11/22/2012 Active [...] Comments Blood Pressure 128/70 09/12/2019 1:05 PM [facility] Pulse 84 09/12/2019 1:05 PM [facility] Temperature 35.7 C (96.3 F) 09/12/2019 1:05 PM [facility] Respiratory Rate 14 11/20/2012 12:01 AM [facility] Oxygen Saturation - - Inhaled Oxygen Concentration - - Weight 65.3 kg (144 lb) 09/12/2019 1:05 PM [facility] Height 154.9 cm (5' 1 ) 09/12/2019 1:05 PM [facility] Body Mass Index 27.21 09/12/2019 1:05 PM [facility] Plan of Treatment Health Maintenance Due Date Last Done Comments Influenza Vaccine (#1) 2024 07/18/2015, 2013 Pneumococcal PPSV23/PCV13 65 + Years / Low and Medium Risk Completed 12/13/2016, 07/25/2012, 07/10/2006, Additional history exists Care Teams Dance Historian Relationship Specialty Start Date End Date Deepthi Benites MD [address] [place] [id number] PCP - General Internal Medicine 09/12/19
--- OUTSIDE RECORDS SUMMARY | 2024-11-15 10:52 | XMS_ITS | Data Portability ---
Author Organization [place] - [facility], Main Office Address [address] [place] [address] Care Team Providers Care Microarray Analyst Name Role Phone FADUMO BENITES Primary Care Provider FADUMO BENITES Referring Provider [phone] Assessment No assessment recorded. Plan of Treatment Reminders Order Date Submit Date Provider Last Modified By Organization Details Last Modified Time Details Appointments None recorded. Lab urinalysis complete, reflex culture 2023 024 [email or web address] Not available 4 12:40:30 TSH, serum or plasma 2023 024 Not available 4 17:28:23 CBC w/ auto diff 2023 024 Not available 4 17:27:01 BMP, serum or plasma 2023 024 Not available 4 17:27:45 lipid panel, serum 2023 024 Not available 4 17:27:18 hepatic function panel, serum 2023 024 Not available 4 17:27:32 vitamin D, 25-hydroxy, total, serum 2023 024 Not available 4 17:28:35 vitamin B12, serum 2023 024 Not available 4 17:28:47 folate, serum 2023 024 Not available 4 17:28:58 ferritin, serum or plasma 2023 Not available 4 17:27:57 iron + total iron-bindin g capacity (TIBC), serum 2023 Not available 17:28:09 Referral None recorded. Procedures None recorded. Surgeries None recorded. Imaging None recorded. Medication Orders tolterodine ER 4 mg capsule,ext ended release 24 hr 2023 [facility] [place], [address], 4 11:10:13 losartan 25 mg tablet 2023 [facility] [place], [address], 4 11:10:13 bupropion HCl XL 150 mg 24 hr tablet, extended release [facility] [place], [address], 4 16:09:41 pravastatin 10 mg tablet 2023 [facility], [place], [address], 4 11:10:13 famotidine 20 mg tablet 2023 [facility] [place], [address], 4 11:10:13 Patient TargetsNo targets recorded. Patient InstructionsNo instructions recorded. Reason for Referral None Reported. Results Created Date Observation Date Name Description Value Unit Range Abnormal Flag Note LastModifiedBy Organization Detail LastModifiedTime 12/12/1912/12/2023 URINA LYSIS COMPL ETE/I RIS W/RFX color YELLOW Not Available [facility] (Lab) [address] [place], [address], 12/12/2023 20:13:50 12/12/19 24 12/12/2023 URINA LYSIS COMPL ETE/I RIS W/RFX appear EXTRA TURBID abnormal Not Available [facility] (Lab) [address] [place], [address], 12/12/2023 20:13:50 12/12/19 24 12/12/2023 URINA LYSIS COMPL ETE/I RIS W/RFX specific gravity 1.014 1.001- 1.030 Not Available [facility] (Lab) [address] [place], [address], 12/12/2023 20:13:50 12/12/19 24 12/12/2023 URINA LYSIS COMPL ETE/I RIS W/RFX pH 6.0 pH_un its 5.0-9. 0 Not Available [facility] (Lab) [address] [place], [address], 12/12/2023 20:13:50 12/12/19 24 12/12/2023 URINA LYSIS COMPL ETE/I RIS W/RFX leukocytes >/=500 patrick/u L negati ve- abnormal Not Available [facility] (Lab) [address] [place], [address], 12/12/2023 20:13:50 12/12/19 24 12/12/2023 URINA LYSIS COMPL ETE/I RIS W/RFX nitrite NEGATI VE negati ve- Not Available [facility] (Lab) [address] [place], [address], 12/12/2023 20:13:50 12/12/19 24 12/12/2023 URINA LYSIS COMPL ETE/I RIS W/RFX protein 30 mg/dL negati ve- abnormal Not Available [facility] (Lab) [address] [place], [address], 12/12/2023 20:13:50 12/12/19 24 12/12/2023 URINA LYSIS COMPL ETE/I RIS W/RFX glucose NORMAL mg/dL normal - Not Available [facility] (Lab) [address] [place], [address], 12/12/2023 20:13:50 12/12/19 24 12/12/2023 URINA LYSIS COMPL ETE/I RIS W/RFX ketones NEGATI VE mg/dL negati ve- Not Available [facility] (Lab) [address] [place], [address], 12/12/2023 20:13:50 12/12/19 24 12/12/2023 URINA LYSIS COMPL ETE/I RIS W/RFX urobilinogen NORMAL mg/dL normal - Not Available [facility] (Lab) [address] [place], [address], 12/12/2023 20:13:50 12/12/19 24 12/12/2023 URINA LYSIS COMPL ETE/I RIS W/RFX bilirubin NEGATI VE mg/dL negati ve- Not Available [facility] (Lab) [address] [place], [address], 12/12/2023 20:13:50 12/12/19 24 12/12/2023 URINA LYSIS COMPL ETE/I RIS W/RFX blood >/=1.0 mg/dL negati ve- abnormal Not Available [facility] (Lab) [address] [place], [address], 12/12/2023 20:13:50 12/12/19 24 12/12/2023 URINA LYSIS COMPL ETE/I RIS W/RFX white blood cells PACKED /i??h pfi?? 0-8 abnormal Not Available [facility] (Lab) [address] [place], [address], 12/12/2023 20:13:50 12/12/19 24 12/12/2023 URINA LYSIS COMPL ETE/I RIS W/RFX white blood cell clumps PACKED FIELD /i??h pfi?? none seen- abnormal Not Available [facility] (Lab) [address] [place], [address], 12/12/2023 20:13:50 12/12/19 24 12/12/2023 URINA LYSIS COMPL ETE/I RIS W/RFX red blood cells >100 /i??h pfi?? 0-4 abnormal Not Available [facility] (Lab) [address] [place], [address], 12/12/2023 20:13:50 12/12/19 24 12/12/2023 URINA LYSIS COMPL ETE/I RIS W/RFX bacteria NONE Not Available [facility] (Lab) [address] [place], [address], 12/12/2023 20:13:50 12/12/19 24 12/12/2023 URINA LYSIS COMPL ETE/I RIS W/RFX mucous OCCASI ONAL /i??l pfi?? abnormal Not Available [facility] (Lab) [address] [place], [address], 12/12/2023 20:13:50 12/12/19 24 12/12/2023 URINA LYSIS COMPL ETE/I RIS W/RFX squamous epithelial PACKED FIELD /i??l pfi?? abnormal Not Available [facility] (Lab) [address] [place], [address], 12/12/2023 20:13:50 12/12/19 24 12/12/2023 CULTU RE URINE urc ===== ===== ===== ===== ===== ===== ===== ===== ===== ===== ===== ===== ===== ===== ===== ===== ===== ===== ===== ===== ===== ===== ===== ===== Speci men NO.: [id number] Exam Statu s: Final Proce dure: CULTU RE URINE ===== ===== ===== ===== ===== ===== ===== ===== ===== ===== ===== ===== ===== ===== ===== ===== ===== ===== ===== ===== ===== ===== ===== ===== Iso/R esult : 01 Citro bacte r koser i Antim icrob ic/Do se IDA Syste ida Urine __ ___ ___ Ampic illin >16 R R Aztre onam <=4 S S Cefot axime <=2 Cipro floxa kathi <=0.2 5 S S Ertap enem <=0.5 SSUP SRES LTS SED RESU Genta micin <=2 [place] [id number] Oxida se React ion N Amp/S ulbac cat <=8/4 S S Ceftr iaxon e <=1 S S Cefta zidim e <=1 S S Cefta zidim e/K Clav <=0.2 5 SUPP RESS Cefot axime /K Clavu <=0.5 SUPP RESS Cefaz wilson <=2 S S Cefep mary <=2 S S Cefur oxime 16 I I Levof loxac in <=0.5 S S Merop enem <=1 S S Pip/T azo <=8 S S Trime th/Sotelo lfa <=2/3 8 S S Tetra cycli ne <=4 S S Tobra mycin <=2 S S TS ED R ESUL TS ED R ESUL Cefta zidim e/Satya robert <=8 SSUP SRES LTS SED RESU Nitro furan toin <=32 S S Not Available [facility] (Lab) [address] [place], [address], 12/14/2023 07:43:23 12/12/19 24 12/12/2023 urina lysis , dipst ick Leukocytes (reference range: negative patrick/ l) Large Not Available [address], [place], [address], 12/12/2023 10:35:32 12/12/19 24 12/12/2023 urina lysis , dipst ick Nitrite (reference rage: negative mg/dl) negati ve Not Available [address], [place], [address], 12/12/2023 10:35:32 12/12/19 24 12/12/2023 urina lysis , dipst ick Urobilinogen (reference range: 0.2-1 mg/dl) 0.2 Not Available [address], [place], [address], 12/12/2023 10:35:32 12/12/19 24 12/12/2023 urina lysis , dipst ick Protein (reference range: negative mg/dl) Small Not Available [address], [place], [address], 12/12/2023 10:35:32 12/12/19 24 12/12/2023 urina lysis , dipst ick pH (reference range: 5-7) 6.5 Not Available [address] [place], [address], 12/12/2023 10:35:32 12/12/19 24 12/12/2023 urina lysis , dipst ick Blood (reference range: negative Luigi/ l) Large Not Available [address], [place], [address], 12/12/2023 10:35:32 12/12/19 24 12/12/2023 urina lysis , dipst ick Specific Shiloh (reference range: 1.005-1.030) 1.020 Not Available [address], [place], [address], 12/12/2023 10:35:32 12/12/19 24 12/12/2023 urina lysis , dipst ick Ketone (reference range: negative mg/dl) Negati ve Not Available [address], [place], [address], 12/12/2023 10:35:32 12/12/19 24 12/12/2023 urina lysis , dipst ick Bilirubin (reference range: negative mg/dl) Negati ve Not Available [address], [place], [address], 12/12/2023 10:35:32 12/12/19 24 12/12/2023 urina lysis , dipst ick Glucose (reference range: negative mg/dl) Negati ve Not Available [address], [place], [address], 12/12/2023 10:35:32 12/12/19 24 12/12/2023 urina lysis , dipst ick Appearance Cloudy Not Available [address], [place], [address], 12/12/2023 10:35:32 12/12/19 24 12/12/2023 urina lysis , dipst ick Color Yellow Not Available [facility] [address], [place], [address], 12/12/2023 10:35:32 12/22/19 24 12/22/2023 URINA LYSIS COMPL ETE/I RIS W/RFX color YELLOW Not Available [facility] (Lab) [address] [place], [address], 12/22/2023 21:08:51 12/22/19 24 12/22/2023 URINA LYSIS COMPL ETE/I RIS W/RFX appear CLEAR Not Available [facility] (Lab) [address] [place], [address], 12/22/2023 21:08:51 12/22/19 24 12/22/2023 URINA LYSIS COMPL ETE/I RIS W/RFX specific gravity 1.009 1.001- 1.030 Not Available [facility] (Lab) [address] [place], [address], 12/22/2023 21:08:51 12/22/19 24 12/22/2023 URINA LYSIS COMPL ETE/I RIS W/RFX pH 6.5 pH_un its 5.0-9. 0 Not Available [facility] (Lab) [address] [place], [address], 12/22/2023 21:08:51 12/22/19 24 12/22/2023 URINA LYSIS COMPL ETE/I RIS W/RFX leukocytes NEGATI VE patrick/u L negati ve- Not Available [facility] (Lab) [address] [place], [address], 12/22/2023 21:08:51 12/22/19 24 12/22/2023 URINA LYSIS COMPL ETE/I RIS W/RFX nitrite NEGATI VE negati ve- Not Available [facility] (Lab) [address] [place], [address], 12/22/2023 21:08:51 12/22/19 24 12/22/2023 URINA LYSIS COMPL ETE/I RIS W/RFX protein NEGATI VE mg/dL negati ve- Not Available [facility] (Lab) [address] [place], [address], 12/22/2023 21:08:51 12/22/19 24 12/22/2023 URINA LYSIS COMPL ETE/I RIS W/RFX glucose NORMAL mg/dL normal - Not Available [facility] (Lab) [address] [place], [address], 12/22/2023 21:08:51 12/22/19 24 12/22/2023 URINA LYSIS COMPL ETE/I RIS W/RFX ketones NEGATI VE mg/dL negati ve- Not Available [facility] (Lab) [address] [place], [address], 12/22/2023 21:08:51 12/22/19 24 12/22/2023 URINA LYSIS COMPL ETE/I RIS W/RFX urobilinogen NORMAL mg/dL normal - Not Available [facility] (Lab) [address] [place], [address], 12/22/2023 21:08:51 12/22/19 24 12/22/2023 URINA LYSIS COMPL ETE/I RIS W/RFX bilirubin NEGATI VE mg/dL negati ve- Not Available [facility] (Lab) [address] [place], [address], 12/22/2023 21:08:51 12/22/19 24 12/22/2023 URINA LYSIS COMPL ETE/I RIS W/RFX blood NEGATI VE mg/dL negati ve- Not Available [facility] (Lab) [address] [facility] [place], [address], 12/22/2023 21:08:51 12/22/19 24 12/22/2023 URINA LYSIS COMPL ETE/I RIS W/RFX white blood cells 0-8 /i??h pfi?? 0-8 Not Available [facility] (Lab) [address] [place], [address], 12/22/2023 21:08:51 12/22/19 24 12/22/2023 URINA LYSIS COMPL ETE/I RIS W/RFX red blood cells 0-4 /i??h pfi?? 0-4 Not Available [facility] (Lab) [address] [place], [address], 12/22/2023 21:08:51 12/22/19 24 12/22/2023 URINA LYSIS COMPL ETE/I RIS W/RFX bacteria MODERA TE abnormal Not Available [facility] (Lab) [address] [place], [address], 12/22/2023 21:08:51 12/22/19 24 12/22/2023 URINA LYSIS COMPL ETE/I RIS W/RFX squamous epithelial OCCASI ONAL /i??l pfi?? abnormal Not Available [facility] (Lab) [address] [place], [address], 12/22/2023 21:08:51 12/22/19 24 12/22/2023 urina lysis , dipst ick Leukocytes (reference range: negative patrick/ l) Negati ve Not Available [address], [place], [address], 12/22/2023 13:44:25 12/22/19 24 12/22/2023 urina lysis , dipst ick Nitrite (reference rage: negative mg/dl) negati ve Not Available [address], [place], [address], 12/22/2023 13:44:25 12/22/19 24 12/22/2023 urina lysis , dipst ick Urobilinogen (reference range: 0.2-1 mg/dl) 0.2 Not Available [address], [place], [address], 12/22/2023 13:44:25 12/22/19 24 12/22/2023 urina lysis , dipst ick Protein (reference range: negative mg/dl) Negati ve Not Available [address], [place], [address], 12/22/2023 13:44:25 12/22/19 24 12/22/2023 urina lysis , dipst ick pH (reference range: 5-7) 7.0 Not Available [address], [place], [address], 12/22/2023 13:44:25 12/22/19 24 12/22/2023 urina lysis , dipst ick Blood (reference range: negative Luigi/ l) Negati ve Not Available [address], [place], [address], 12/22/2023 13:44:25 12/22/19 24 12/22/2023 urina lysis , dipst ick Specific Shiloh (reference range: 1.005-1.030) 1.015 Not Available [address], [place], [address], 12/22/2023 13:44:25 12/22/19 24 12/22/2023 urina lysis , dipst ick Ketone (reference range: negative mg/dl) Negati ve Not Available [address], [place], [address], 12/22/2023 13:44:25 12/22/19 24 12/22/2023 urina lysis , dipst ick Bilirubin (reference range: negative mg/dl) Negati ve Not Available [address], [place], [address], 12/22/2023 13:44:25 12/22/19 24 12/22/2023 urina lysis , dipst ick Glucose (reference range: negative mg/dl) Negati ve Not Available [address], [place], [address], 12/22/2023 13:44:25 12/22/19 24 12/22/2023 urina lysis , dipst ick Appearance Clear Not Available [address], [place], [address], 12/22/2023 13:44:25 12/22/19 24 12/22/2023 urina lysis , dipst ick Color Yellow Not Available [address], [place], [address], 12/22/2023 13:44:25 12/27/19 24 12/27/2023 URINA LYSIS COMPL ETE/I RIS W/RFX color DARK-Y ELLOW Not Available [facility] [address] [place], [address], 12/27/2023 19:20:19 12/27/19 24 12/27/2023 URINA LYSIS COMPL ETE/I RIS W/RFX appear EXTRA TURBID abnormal Not Available [facility] [address] [place], [address], 12/27/2023 19:20:19 12/27/19 24 12/27/2023 URINA LYSIS COMPL ETE/I RIS W/RFX specific gravity 1.015 1.001- 1.030 Not Available [facility] [address] [place], [address], 12/27/2023 19:20:19 12/27/19 24 12/27/2023 URINA LYSIS COMPL ETE/I RIS W/RFX pH 5.5 pH_un its 5.0-9. 0 Not Available [facility] [address] [place], [address], 12/27/2023 19:20:19 12/27/19 24 12/27/2023 URINA LYSIS COMPL ETE/I RIS W/RFX leukocytes >/=500 patrick/u L negati ve- abnormal Not Available [facility] [address] [place], [address], 12/27/2023 19:20:19 12/27/19 24 12/27/2023 URINA LYSIS COMPL ETE/I RIS W/RFX nitrite NEGATI VE negati ve- Not Available [facility] [address] [place], [address], 12/27/2023 19:20:19 12/27/19 24 12/27/2023 URINA LYSIS COMPL ETE/I RIS W/RFX protein 100 mg/dL negati ve- abnormal Not Available [facility] [address] [place], [address], 12/27/2023 19:20:19 12/27/19 24 12/27/2023 URINA LYSIS COMPL ETE/I RIS W/RFX glucose NORMAL mg/dL normal - Not Available [facility] [address] [place], [address], 12/27/2023 19:20:19 12/27/19 24 12/27/2023 URINA LYSIS COMPL ETE/I RIS W/RFX ketones NEGATI VE mg/dL negati ve- Not Available [facility] [address] [place], [address], 12/27/2023 19:20:19 12/27/19 24 12/27/2023 URINA LYSIS COMPL ETE/I RIS W/RFX urobilinogen NORMAL mg/dL normal - Not Available [facility] [address] [place], [address], 12/27/2023 19:20:19 12/27/19 24 12/27/2023 URINA LYSIS COMPL ETE/I RIS W/RFX bilirubin NEGATI VE mg/dL negati ve- Not Available [facility] [address] [place], [address], 12/27/2023 19:20:19 12/27/19 24 12/27/2023 URINA LYSIS COMPL ETE/I RIS W/RFX blood >/=1.0 mg/dL negati ve- abnormal Not Available [facility] [address] [place], [address], 12/27/2023 19:20:19 12/27/19 24 12/27/2023 URINA LYSIS COMPL ETE/I RIS W/RFX white blood cells PACKED /i??h pfi?? 0-8 abnormal Not Available [facility] [address] [place], [address], 12/27/2023 19:20:19 12/27/19 24 12/27/2023 URINA LYSIS COMPL ETE/I RIS W/RFX white blood cell clumps PACKED FIELD /i??h pfi?? none seen- abnormal Not Available [facility] [address] [place], [address], 12/27/2023 19:20:19 12/27/19 24 12/27/2023 URINA LYSIS COMPL ETE/I RIS W/RFX red blood cells >100 /i??h pfi?? 0-4 abnormal Not Available [facility] [address] [place], [address], 12/27/2023 19:20:19 12/27/19 24 12/27/2023 URINA LYSIS COMPL ETE/I RIS W/RFX bacteria MANY abnormal Not Available [facility] [address] [place], [address], 12/27/2023 19:20:19 12/27/19 24 12/27/2023 URINA LYSIS COMPL ETE/I RIS W/RFX squamous epithelial PACKED FIELD /i??l pfi?? abnormal Not Available [facility] [address] [place], [address], 12/27/2023 19:20:19 12/27/19 24 12/27/2023 CULTU RE URINE urc ===== ===== ===== ===== ===== ===== ===== ===== ===== ===== ===== ===== ===== ===== ===== ===== ===== ===== ===== ===== ===== ===== ===== ===== Speci men NO.: [id number] Exam Statu s: Final Proce dure: CULTU RE URINE ===== ===== ===== ===== ===== ===== ===== ===== ===== ===== ===== ===== ===== ===== ===== ===== ===== ===== ===== ===== ===== ===== ===== ===== Iso/R esult : 01 Esche concha a coli Antim icrob ic/Do se IDA Syste ida Urine __ ___ ___ Ampic illin 16 I I Aztre onam <=4 S S Cefot axime <=2 Cipro floxa kathi 2 R R Ertap enem <=0.5 SSUP SRES LTS SED RESU Genta micin <=2 [place] [id number] Oxida se React ion N Extra Sensi tive Be NEG Amp/S ulbac cat <=8/4 S S Ceftr iaxon e <=1 S S Cefta zidim e <=1 S S Cefta zidim e/K Clav <=0.2 5 SUPP RESS Cefot axime /K Clavu <=0.5 SUPP RESS Cefaz wilson <=2 S S Cefep mary <=2 S S Cefur oxime 8 S S Levof loxac in 4 R R Merop enem <=1 S S Pip/T azo <=8 S S Trime th/Sotelo lfa >2/38 R R Tetra cycli ne >8 R R Tobra mycin <=2 S S TS ED R ESUL TS ED R ESUL Cefta zidim e/Satya robert <=8 SSUP SRES LTS SED RESU Nitro furan toin <=32 S S Not Available [facility] (Lab) [address] [place], [address], 12/31/2023 08:34:38 12/27/19 24 12/27/2023 urina lysis , dipst ick Leukocytes (reference range: negative patrick/ l) Large Not Available [address], [place], [address], 12/27/2023 11:58:14 12/27/19 24 12/27/2023 urina lysis , dipst ick Nitrite (reference rage: negative mg/dl) negati ve Not Available [address], [place], [address], 12/27/2023 11:58:14 12/27/19 24 12/27/2023 urina lysis , dipst ick Urobilinogen (reference range: 0.2-1 mg/dl) 0.2 Not Available [address], [place], [address], 12/27/2023 11:58:14 12/27/19 24 12/27/2023 urina lysis , dipst ick Protein (reference range: negative mg/dl) Large Not Available [address], [place], [address], 12/27/2023 11:58:14 12/27/19 24 12/27/2023 urina lysis , dipst ick pH (reference range: 5-7) 5.5 Not Available [address], [place], [address], 12/27/2023 11:58:14 12/27/19 24 12/27/2023 urina lysis , dipst ick Blood (reference range: negative Luigi/ l) Large Not Available [address], [place], [address], 12/27/2023 11:58:14 12/27/19 24 12/27/2023 urina lysis , dipst ick Specific Shiloh (reference range: 1.005-1.030) 1.030 Not Available [address], [place], [address], 12/27/2023 11:58:14 12/27/19 24 12/27/2023 urina lysis , dipst ick Ketone (reference range: negative mg/dl) Negati ve Not Available [address], [place], [address], 12/27/2023 11:58:14 12/27/19 24 12/27/2023 urina lysis , dipst ick Bilirubin (reference range: negative mg/dl) Negati ve Not Available [address], [place], [address], 12/27/2023 11:58:14 12/27/19 24 12/27/2023 urina lysis , dipst ick Glucose (reference range: negative mg/dl) Negati ve Not Available [address], [place], [address], 12/27/2023 11:58:14 12/27/19 24 12/27/2023 urina lysis , dipst ick Appearance Cloudy Not Available [address], [place], [address], 12/27/2023 11:58:14 12/27/19 24 12/27/2023 urina lysis , dipst ick Color Yellow Not Available [address], [place], [address], 12/27/2023 11:58:14 01/04/20 24 01/04/2024 CBC/C OMPLE TE BLD COUNT W/DIF F white blood cells 4.7 x10'3 /uL 4.2-10 .8 Not Available [facility] (Lab) [address] [place], [address], 01/04/2024 19:31:32 01/04/20 24 01/04/2024 CBC/C OMPLE TE BLD COUNT W/DIF F red blood cells 4.45 x10'6 /uL 3.80-5 .20 Not Available [facility] (Lab) [address] [place], [address], 01/04/2024 19:31:32 01/04/20 24 01/04/2024 CBC/C OMPLE TE BLD COUNT W/DIF F hemoglobin 13.3 g/dL 12.0-1 5.6 Not Available [facility] (Lab) [address] [place], [address], 01/04/2024 19:31:32 01/04/20 24 01/04/2024 CBC/C OMPLE TE BLD COUNT W/DIF F hematocrit 39.8 % 35.7-4 5.7 Not Available [facility] (Lab) [address] [place], [address], 01/04/2024 19:31:32 01/04/20 24 01/04/2024 CBC/C OMPLE TE BLD COUNT W/DIF F mean red cell volume 89.4 fL 82.0-9 9.0 Not Available [facility] (Lab) [address] [place], [address], 01/04/2024 19:31:32 01/04/20 24 01/04/2024 CBC/C OMPLE TE BLD COUNT W/DIF F mean red cell hemoglobin 29.9 pg 27.0-3 3.0 Not Available [facility] (Lab) [address] [place], [address], 01/04/2024 19:31:32 01/04/20 24 01/04/2024 CBC/C OMPLE TE BLD COUNT W/DIF F mean RBC HGB concentratio n 33.4 g/dL 31.0-3 6.0 Not Available [facility] (Lab) [address] [place], [address], 01/04/2024 19:31:32 01/04/20 24 01/04/2024 CBC/C OMPLE TE BLD COUNT W/DIF F red cell distribution width 12.9 % 11.8-1 5.5 Not Available [facility] (Lab) [address] [place], [address], 01/04/2024 19:31:32 01/04/20 24 01/04/2024 CBC/C OMPLE TE BLD COUNT W/DIF F platelets 200 x10'3 /uL 150-40 0 Not Available [facility] (Lab) [address] [place], [address], 01/04/2024 19:31:32 01/04/20 24 01/04/2024 CBC/C OMPLE TE BLD COUNT W/DIF F mean platelet volume 10.1 fL 9.0-12 .4 Not Available [facility] (Lab) [address] [place], [address], 01/04/2024 19:31:32 01/04/20 24 01/04/2024 CBC/C OMPLE TE BLD COUNT W/DIF F neutrophils 63.1 % 39.0-7 2.0 Not Available [facility] (Lab) [address] [place], [address], 01/04/2024 19:31:32 01/04/20 24 01/04/2024 CBC/C OMPLE TE BLD COUNT W/DIF F lymphocytes 22.5 % 16.0-4 7.0 Not Available [facility] (Lab) [address] [place], [address], 01/04/2024 19:31:32 01/04/20 24 01/04/2024 CBC/C OMPLE TE BLD COUNT W/DIF F monocytes 9.4 % 5.0-12 .0 Not Available [facility] (Lab) [address] [place], [address], 01/04/2024 19:31:32 01/04/20 24 01/04/2024 CBC/C OMPLE TE BLD COUNT W/DIF F eosinophils 3.9 % 1.0-7. 0 Not Available [facility] (Lab) [address] [place], [address], 01/04/2024 19:31:32 01/04/20 24 01/04/2024 CBC/C OMPLE TE BLD COUNT W/DIF F basophils 0.9 % 0.0-2. 0 Not Available [facility] (Lab) [address] [place], [address], 01/04/2024 19:31:32 01/04/20 24 01/04/2024 CBC/C OMPLE TE BLD COUNT W/DIF F immature granulocytes 0.2 % 0.00-0 .50 Not Available [facility] (Lab) [address] [place], [address], 01/04/2024 19:31:32 01/04/20 24 01/04/2024 CBC/C OMPLE TE BLD COUNT W/DIF F neutrophils, absolute count 2.95 x10'3 /uL 1.5-8. 0 Not Available [facility] (Lab) [address] [place], [address], 01/04/2024 19:31:32 01/04/20 24 01/04/2024 CBC/C OMPLE TE BLD COUNT W/DIF F lymphocytes, absolute count 1.05 x10'3 /uL 1.07-3 .43 low Not Available [facility] (Lab) [address] [place], [address], 01/04/2024 19:31:32 01/04/20 24 01/04/2024 CBC/C OMPLE TE BLD COUNT W/DIF F monocytes, absolute count 0.44 x10'3 /uL 0.29-0 .99 Not Available [facility] (Lab) [address] [place], [address], 01/04/2024 19:31:32 01/04/20 24 01/04/2024 CBC/C OMPLE TE BLD COUNT W/DIF F eosinophils, absolute count 0.18 x10'3 /uL 0.02-0 .53 Not Available [facility] (Lab) [address] [place], [address], 01/04/2024 19:31:32 01/04/20 24 01/04/2024 CBC/C OMPLE TE BLD COUNT W/DIF F basophils, absolute count 0.04 x10'3 /uL 0.01-0 .08 Not Available [facility] (Lab) [address] [place], [address], 01/04/2024 19:31:32 01/04/20 24 01/04/2024 CBC/C OMPLE TE BLD COUNT W/DIF F immature granulocytes ,absolute 0.01 x10'3 /uL 0.00-0 .05 Not Available [facility] (Lab) [address] [place], [address], 01/04/2024 19:31:32 01/04/20 24 01/04/2024 CBC/C OMPLE TE BLD COUNT W/DIF F nucleated red blood cells 0.0 % -0 Not Available [facility] (Lab) [address] [place], [address], 01/04/2024 19:31:32 01/04/20 24 01/04/2024 CBC/C OMPLE TE BLD COUNT W/DIF F NRBC# 0.00 x10'3 /uL Not Available [facility] (Lab) [address] [place], [address], 01/04/2024 19:31:32 01/04/20 24 01/04/2024 LIPID PANEL cholesterol 190 mg/dL 140-19 9 NIH MANA NSUS RECOM MENDA TION FOR ZANDRA STERO L: ADULT CHILD LOW RISK: <200 <170 BORDE RLINE : <200- 239 ----- HIGH RISK: >240 >200 Not Available [facility] (Lab) [address] [place], [address], 01/04/2024 20:01:55 01/04/20 24 01/04/2024 LIPID PANEL triglyceride s 114 mg/dL 0-150 NIH MANA NSUS REPOR T RECOM MENDA TION FOR TRIGL YCERI ELODIA: ADULT CHILD LOW RISK: <150 ----- BODER LINE: 150-1 99 ----- HIGH RISK: >200 ----- Not Available [facility] (Lab) [address] [place], [address], 01/04/2024 20:01:55 01/04/20 24 01/04/2024 LIPID PANEL HDL cholesterol 91 mg/dL 40- Not Available [facility] (Lab) [address] [place], [address], 01/04/2024 20:01:55 01/04/20 24 01/04/2024 LIPID PANEL LDL cholesterol, calculated 76 mg/dL 0-130 NIH MANA NSUS REPOR T RECOM MENDA TIONS FOR LDL: ADULT CHILD LOW RISK <130 <110 (OPTI MAL LDL) <100 ----- JASPAL RLINE : 130-1 59 ----- HIGH RISK: >160 >130 A TRIGL YCERI DE RESUL T >400 INVAL IDATE S THE CALCU LATIO N FOR LDL FRACT IONAT ION - THE LDL RESUL T WILL NOT BE REPOR GONZALES. Not Available [facility] (Lab) [address] [place], [address], 01/04/2024 20:01:55 01/04/20 24 01/04/2024 HEPAT IC/LI NICK PANEL alkaline phosphatase 74 U/L 38-126 Not Available [facility] (Lab) [address] [place], [address], 01/04/2024 20:02:00 01/04/20 24 01/04/2024 HEPAT IC/LI NICK PANEL alanine aminotransfe rase 23 U/L 0-35 Not Available [facility] (Lab) [address] [place], [address], 01/04/2024 20:02:00 01/04/20 24 01/04/2024 HEPAT IC/LI NICK PANEL aspartate aminotransfe rase 31 U/L 15-37 Not Available [facility] (Lab) [address] [place], [address], 01/04/2024 20:02:00 01/04/20 24 01/04/2024 HEPAT IC/LI NICK PANEL bilirubin, total 0.40 mg/dL 0.20-1 .30 Not Available [facility] (Lab) [address] [place], [address], 01/04/2024 20:02:00 01/04/20 24 01/04/2024 HEPAT IC/LI NICK PANEL bilirubin, conjugated (direct) 0.00 mg/dL 0.00-0 .30 Not Available [facility] (Lab) [address] [place], [address], 01/04/2024 20:02:00 01/04/20 24 01/04/2024 HEPAT IC/LI NICK PANEL biliurubin,u ncong. (indirect) 0.20 mg/dL 0.00-1 .1 Not Available [facility] (Lab) [address] [place], [address], 01/04/2024 20:02:00 01/04/20 24 01/04/2024 HEPAT IC/LI NICK PANEL total protein 6.9 g/dL 6.3-8. 2 Not Available [facility] (Lab) [address] [place], [address], 01/04/2024 20:02:00 01/04/20 24 01/04/2024 HEPAT IC/LI NICK PANEL albumin 4.3 g/dL 3.0-4. 4 Not Available [facility] (Lab) [address] [place], [address], 01/04/2024 20:02:00 01/04/20 24 01/04/2024 HEPAT IC/LI NICK PANEL globulin 2.6 g/dL 2.6-4. 2 Not Available [facility] (Lab) [address] [place], [address], 01/04/2024 20:02:00 01/04/20 24 01/04/2024 HEPAT IC/LI NICK PANEL A/G ratio 1.7 ratio 1.0-2. 0 Not Available [facility] (Lab) [address] [place], [address], 01/04/2024 20:02:00 01/04/20 24 01/04/2024 BASIC METAB OLIC PANEL sodium 137 mmol/ L 137-14 5 Not Available [facility] (Lab) [address] [place], [address], 01/04/2024 20:02:11 01/04/20 24 01/04/2024 BASIC METAB OLIC PANEL potassium 4.6 mmol/ L 3.5-5. 1 Not Available [facility] (Lab) [address] [place], [address], 01/04/2024 20:02:11 01/04/20 24 01/04/2024 BASIC METAB OLIC PANEL chloride 106 mmol/ L 98-107 Not Available [facility] (Lab) [address] [place], [address], 01/04/2024 20:02:11 01/04/20 24 01/04/2024 BASIC METAB OLIC PANEL carbon dioxide 29 mmol/ L 22-30 Not Available [facility] (Lab) [address] [place], [address], 01/04/2024 20:02:11 01/04/20 24 01/04/2024 BASIC METAB OLIC PANEL anion gap 6.6 mmol/ L 14-22 low Not Available [facility] (Lab) [address] [place], [address], 01/04/2024 20:02:11 01/04/20 24 01/04/2024 BASIC METAB OLIC PANEL glucose 78 mg/dL 70-99 Not Available [facility] (Lab) [address] [place], [address], 01/04/2024 20:02:11 01/04/20 24 01/04/2024 BASIC METAB OLIC PANEL BUN 16 mg/dL 8-19 Not Available [facility] (Lab) [address] [place], [address], 01/04/2024 20:02:11 01/04/20 24 01/04/2024 BASIC METAB OLIC PANEL creatinine 1.01 mg/dL 0.66-1 .25 Not Available [facility] (Lab) [address] [place], [address], 01/04/2024 20:02:11 01/04/20 24 01/04/2024 BASIC METAB OLIC PANEL GFR 53 Refer ence Range : [place] GFR Healt hy Adult : >60 mL/mi n/1.7 3 m2 Chron ic Kidne y Disea se: 15-60 mL/mi n/1.7 3 m2 Kidne y Failu re: <15/m L/min /1.73 m2 www.n iddk. nih.g ov The MDRD study equat ion has not been valid ated in child dwayne <18 years of age; pregn ant women ; the elder ly >85 years of age; or in some racia l or ethni c subgr oups, such as ma nics. Outsi de the valid ated zohreh eters , estim ated GFR is less accur ate, requi ring clini cameron judgm ent on a case- by-ca se basis . Clini cameron inter preta tion for other races and ages must be made by the clini lauren. The MDRD study equat ion has not been valid ated for the evalu ation of serum creat inine relat ed to nutri fadumo l statu s or medic ation usage . For perso ns <18 years of age, a pedia tric GFR calcu lator is avail able on the F websi te: https ://axel parson.o rg/pr ofess ional s/kdo qi/gf r_cal culat or Not Available [facility] (Lab) [address] [place], [address], 01/04/2024 20:02:11 01/04/20 24 01/04/2024 BASIC METAB OLIC PANEL calcium 9.7 mg/dL 8.4-10 .2 Not Available [facility] (Lab) [address] [place], [address], 01/04/2024 20:02:11 01/04/20 24 01/04/2024 TOT IRON JANET NG CAP total iron binding capacity 302 mcg/d L 265-47 5 Not Available [facility] (Lab) [address] [place], [address], 01/04/2024 20:11:57 01/04/20 24 01/04/2024 VITAM IN D 25-HY DROXY vd25oh 65.2 NG/mL 30-100 Vitam in D Statu s: Defic ient: <20 ng/mL Insuf ficie nt: 20-29 ng/mL Suffi cient : 30-10 0 ng/mL Not Available [facility] (Lab) [address] [place], [address], 01/04/2024 20:13:24 01/04/20 24 01/04/2024 TSH thyroid-stim ulating hormone 0.529 uIU/m L 0.465- 4.680 Not Available [facility] (Lab) [address] [place], [address], 01/04/2024 20:26:02 01/04/20 24 01/04/2024 ELIZABETH TIN ferritin 27 NG/mL 11.1-2 64 Not Available [facility] (Lab) [address] [place], [address], 01/04/2024 20:31:00 01/04/20 24 01/04/2024 VITAM IN B12 (CORTNEY FABIAN ) vb12 913 pg/mL 239-93 1 Not Available [facility] (Lab) [address] [place], [address], 01/04/2024 21:26:31 01/04/20 24 01/04/2024 FOLAT E, SERUM /PLAS MA folate >20.0 NG/mL 2.76-2 0.0 Not Available [facility] (Lab) [address] [place], [address], 01/04/2024 21:26:51 01/10/20 24 01/10/2024 URINA LYSIS COMPL ETE/I RIS W/RFX color LIGHT- YELLOW Not Available [facility] (Lab) [address] [place], [address], 01/10/2024 20:52:31 01/10/20 24 01/10/2024 URINA LYSIS COMPL ETE/I RIS W/RFX appear TURBID abnormal Not Available [facility] (Lab) [address] [place], [address], 01/10/2024 20:52:31 01/10/20 24 01/10/2024 URINA LYSIS COMPL ETE/I RIS W/RFX specific gravity 1.009 1.001- 1.030 Not Available [facility] (Lab) [address] [place], [address], 01/10/2024 20:52:31 01/10/20 24 01/10/2024 URINA LYSIS COMPL ETE/I RIS W/RFX pH 7.0 pH_un its 5.0-9. 0 Not Available [facility] (Lab) [address] [place], [address], 01/10/2024 20:52:31 01/10/20 24 01/10/2024 URINA LYSIS COMPL ETE/I RIS W/RFX leukocytes NEGATI VE patrick/u L negati ve- Not Available [facility] (Lab) [address] [place], [address], 01/10/2024 20:52:31 01/10/20 24 01/10/2024 URINA LYSIS COMPL ETE/I RIS W/RFX nitrite NEGATI VE negati ve- Not Available [facility] (Lab) [address] [place], [address], 01/10/2024 20:52:31 01/10/20 24 01/10/2024 URINA LYSIS COMPL ETE/I RIS W/RFX protein NEGATI VE mg/dL negati ve- Not Available [facility] (Lab) [address] [place], [address], 01/10/2024 20:52:31 01/10/20 24 01/10/2024 URINA LYSIS COMPL ETE/I RIS W/RFX glucose NORMAL mg/dL normal - Not Available [facility] (Lab) [address] [place], [address], 01/10/2024 20:52:31 01/10/20 24 01/10/2024 URINA LYSIS COMPL ETE/I RIS W/RFX ketones NEGATI VE mg/dL negati ve- Not Available [facility] (Lab) [address] [place], [address], 01/10/2024 20:52:31 01/10/20 24 01/10/2024 URINA LYSIS COMPL ETE/I RIS W/RFX urobilinogen NORMAL mg/dL normal - Not Available [facility] (Lab) [address] [place], [address], 01/10/2024 20:52:31 01/10/20 24 01/10/2024 URINA LYSIS COMPL ETE/I RIS W/RFX bilirubin NEGATI VE mg/dL negati ve- Not Available [facility] (Lab) [address] [place], [address], 01/10/2024 20:52:31 01/10/20 24 01/10/2024 URINA LYSIS COMPL ETE/I RIS W/RFX blood NEGATI VE mg/dL negati ve- Not Available [facility] (Lab) [address] [place], [address], 01/10/2024 20:52:31 01/10/20 24 01/10/2024 URINA LYSIS COMPL ETE/I RIS W/RFX white blood cells 0-8 /i??h pfi?? 0-8 Not Available [facility] (Lab) [address] [place], [address], 01/10/2024 20:52:31 01/10/20 24 01/10/2024 URINA LYSIS COMPL ETE/I RIS W/RFX red blood cells 0-4 /i??h pfi?? 0-4 Not Available [facility] (Lab) [address] [place], [address], 01/10/2024 20:52:31 01/10/20 24 01/10/2024 URINA LYSIS COMPL ETE/I RIS W/RFX bacteria NONE Not Available [facility] (Lab) [address] [place], [address], 01/10/2024 20:52:31 01/10/20 24 01/10/2024 URINA LYSIS COMPL ETE/I RIS W/RFX mucous OCCASI ONAL /i??l pfi?? abnormal Not Available [facility] (Lab) [address] [place], [address], 01/10/2024 20:52:31 01/10/20 24 01/10/2024 URINA LYSIS COMPL ETE/I RIS W/RFX squamous epithelial OCCASI ONAL /i??l pfi?? abnormal Not Available [facility] (Lab) [address] [place], [address], 01/10/2024 20:52:31 01/10/20 24 01/10/2024 urina lysis , dipst ick Leukocytes (reference range: negative patrick/ l) Negati ve Not Available [address], [place], [address], 01/10/2024 12:49:28 01/10/20 24 01/10/2024 urina lysis , dipst ick Nitrite (reference rage: negative mg/dl) negati ve Not Available [address], [place], [address], 01/10/2024 12:49:28 01/10/20 24 01/10/2024 urina lysis , dipst ick Urobilinogen (reference range: 0.2-1 mg/dl) 0.2 Not Available [address], [place], [address], 01/10/2024 12:49:28 01/10/20 24 01/10/2024 urina lysis , dipst ick Protein (reference range: negative mg/dl) Negati ve Not Available [address], [place], [address], 01/10/2024 12:49:28 01/10/20 24 01/10/2024 urina lysis , dipst ick pH (reference range: 5-7) 7.5 Not Available [address], [place], [address], 01/10/2024 12:49:28 01/10/20 24 01/10/2024 urina lysis , dipst ick Blood (reference range: negative Luigi/ l) Negati ve Not Available [address], [place], [address], 01/10/2024 12:49:28 01/10/20 24 01/10/2024 urina lysis , dipst ick Specific Shiloh (reference range: 1.005-1.030) 1.020 Not Available [address], [place], [address], 01/10/2024 12:49:28 01/10/20 24 01/10/2024 urina lysis , dipst ick Ketone (reference range: negative mg/dl) Negati ve Not Available [address], [place], [address], 01/10/2024 12:49:28 01/10/20 24 01/10/2024 urina lysis , dipst ick Bilirubin (reference range: negative mg/dl) Negati ve Not Available [address], [place], [address], 01/10/2024 12:49:28 01/10/20 24 01/10/2024 urina lysis , dipst ick Glucose (reference range: negative mg/dl) Negati ve Not Available [address], [place], [address], 01/10/2024 12:49:28 01/10/20 24 01/10/2024 urina lysis , dipst ick Appearance Clear Not Available [address], [place], [address], 01/10/2024 12:49:28 01/10/20 24 01/10/2024 urina lysis , dipst ick Color Pale Yellow Not Available [address], [place], [address], 01/10/2024 12:49:28 Result Notes None recorded. Problems Name Problem SNOMED Code Status Onset Date Resolution Date Notes Provider Name and Address Organization Details Recorded Time Irritable bowel syndrome 76649019 Active Not Available [facility] 3 08:34:03 Bilateral hip joint pain 38449080503 023963 Active 2021 Not Available [facility] 3 08:34:03 Acquired trigger finger 7156934 Active Not Available [facility] 3 08:34:03 Pain of left ankle joint 11532229020 852803 Active 2020 Not Available [facility] 3 08:34:03 Increased frequency of urination 078019533 Completed Maite Guaman RN [facility], [place] - [facility] 4 10:40:26 History of Schatzkis ring 51465781169 889890 Active Not Available [facility] 3 08:34:03 Open wound of hand, excluding finger(s) 484626324 Completed Not Available [facility] 3 08:09:15 Gastric reflux 159793358 Active Not Available [facility] 3 08:34:03 Gastroeso phageal reflux disease 093085431 Active Not Available [facility] 3 08:34:03 Labyrinth itis 55114290 Completed Not Available [facility] 3 08:09:15 Glaucoma 51251150 Active Not Available [facility] 3 08:34:03 Gastroeso phageal reflux disease without esophagit is 058185773 Active 2021 Not Available [facility] 3 08:34:03 Enthesopa thy of hip region 57277184 Active Not Available [facility] 3 08:34:03 Trochante pallavi bursitis of right hip 34793627415 9100 Active 2021 Not Available [facility] 3 08:34:03 Viral disease 75911612 Completed Not Available [facility] 3 08:09:16 Dehydrati on 75520131 Completed Not Available [facility] 3 08:09:16 Vitamin D deficienc y 63408689 Active Not Available [facility] 3 08:34:03 Depressiv e disorder 52254264 Active Not Available [facility] 3 08:34:03 Osteoarth ritis 007910338 Active Not Available [facility] 3 08:34:03 Chronic kidney disease stage 3 469961379 Active 2020 Not Available [facility] 3 08:34:03 Shoulder pain 93548577 Completed Not Available [facility] 3 08:09:16 Pain of right knee joint 36805126701 4100 Active 2021 Not Available [facility] 3 08:34:03 Pain of left knee joint 92307185373 4107 Active 2021 Not Available [facility] 3 08:34:03 Cartilage disorder 29178859 Active 2021 Not Available [facility] 3 08:34:03 Upper respirato ry infection 32323451 Completed Not Available [facility] 3 08:09:17 Hyperlipi demia 84531557 Active Not Available [facility] 3 08:34:03 Carpal tunnel syndrome 50480642 Active Not Available [facility] 3 08:34:03 Essential hypertens ion 78569963 Active Not Available [facility] 3 08:34:03 Candidal vulvovagi nitis 59685639 Completed Not Available [facility] 3 08:09:17 Degenerat ion of intervert ebral disc 86403161 Active Not Available [facility] 3 08:34:03 Ganglion of joint 37042350 Active Not Available [facility] 3 08:34:03 Fatigabil ity 25036287 Completed Not Available [facility] 3 08:09:17 Neck pain 52099771 Completed Not Available [facility] 3 08:09:18 Hiatal hernia 65274485 Active Not Available [facility] 3 08:34:03 Fatigue 17845469 Completed Not Available [facility] 3 08:09:18 Iron deficienc y anemia 94161170 Active Not Available [facility] 3 08:34:03 Thyroid function tests abnormal 272808472 Active 2022 Not Available [facility] 3 08:34:03 Impacted cerumen in right ear 43600839879 79587 Active 2022 Not Available [facility] 3 08:34:03 Eczema of external auditory canal 79828266 Active 2022 Not Available [facility] 3 08:34:03 Bursitis 00835648 Active 2022 Not Available [facility] 3 08:34:03 Anxiety 86125083 Active 2022 Not Available [facility] 3 08:34:03 Mixed anxiety and depressiv e disorder 962259525 Active 2022 Not Available [facility] 3 08:34:03 Acute sinusitis 58424821 Active [address] [facility], [facility] [address], [place], [address] , [facility] 4 15:03:42 Dysuria 61195976 Active 2023 Maite Guaman RN null, [facility] 4 10:35:27 Increased frequency of urination 618962677 Active 2023 Maite Guaman RN null, [facility] 4 10:40:26 Acute urinary tract infection 460510762 Active 2023 Fadumo Benites MD [address] [facility], [facility] [address], [place], [address] , [facility] 4 12:43:58 Cobalamin deficienc y 195223926 Active 2023 Fadumo Benites MD [address] [facility], [facility] [address], [place], [address] , [facility] 4 11:15:22 Urinary symptoms 733773634 Active 2023 Maite Guaman RN null, [facility] 4 12:38:36 Problem Notes None recorded. Procedures Surgical History Date Name Laterality Status Provider Name and Address Organization Details Recorded Time 09/08/20 Medicare Wellness CPT Code, subsequent completed Mary Guerra RN [facility] 09/08/2023 10:55:07 10/10/19 18 Endoscopy completed Not Available [facility] 3 08:06:27 release of trigger finger completed Not Available [facility] 12/08/2022 08:06:27 Carpal tunnel surgery completed Not Available [facility] 12/08/2022 08:06:27 Colonoscopy completed Sherice Roblero LPN [place] [facility] [place] [email or web address] [facility] 06/14/2023 12:58:59 operation on retina completed Not Available [facility] 12/08/2022 08:06:27 Imaging Results None recorded. Procedure Notes None recorded. Medical Equipment None Reported. Allergies Allergen ID Allergen Name Allergen Category Reaction Reaction Severity Criticality Documentation Date Start Date Code Code System Note Provider Name and Address Organization Details Recorded Time Xanax medicatio n Not available Not available Not available 12/08/202208821 3 RxNorm swell ing Not Available [facility] 3 08:14:03 naproxen medicatio n Not available Not available Not available 12/08/2022 7258 RxNorm feet swell ing Not Available [facility] 3 08:14:03 Effexor medicatio n Not available Not available Not available 12/08/2022 26792 2 RxNorm light heade d Not Available [facility] 3 08:14:03 Medications Name Sig Start Date Stop Date Status Note LastModified by Organization Details LastModified Time amoxicillin 500 mg capsule 03/20 completed Not Available Not Available Not Available citalopram 40 mg tablet TAKE 1 TABLET BY MOUTH DAILY active Not Available Not Available No t Available atorvastati n 10 mg tablet Take 1 tablet by mouth at bedtime 09/19 completed Not Available Not Available Not Available azithromyci n 250 mg tablet TAKE 2 TABLETS BY MOUTH TODAY, THEN TAKE 1 TABLET DAILY FOR 4 DAYS DIRECTED 01/03 completed Not Available Not Available Not Available benzonatate 200 mg capsule Take 1 capsule 3 times a day by oral route as needed for 30 days. active Not Available Not Available No t Available valacyclovi r 1 gram tablet active PRN Not Available Not Available Not Available tolterodine ER 4 mg capsule,ext ended release 24 hr TAKE 1 CAPSULE BY MOUTH EVERY DAY active Not Available Not Available No t Available hydrocodone 5 mg-acetamin ophen 325 mg tablet active Not Available Not Available No t Available famotidine 40 mg tablet TAKE 1 TABLET BY MOUTH EVERYDAY AT BEDTIME 08/04 completed Not Available Not Available Not Available bupivacaine HCl 0.5 % (5 mg/mL) injection solution In office injection administe red by the provider 02/12 completed Not Available Not Available Not Available prednisone 20 mg tablet 3 po qday x 3 days then 2 po qday x 3 days then 1 po qday x 3 days then 1/2 tab po qday x 3 days then stop active Not Available Not Available No t Available fluorouraci l 5 % topical cream 11/27 completed Not Available Not Available Not Available sertraline 100 mg tablet TAKE 1 TABLET BY MOUTH DAILY 07/10 completed Not Available Not Available Not Available clobetasol 0.05 % topical cream 11/27 completed Not Available Not Available Not Available meclizine 12.5 mg tablet Take 1-2 tabs TID PRN for vertigo symptoms active Not Available Not Available No t Available ciprofloxac in 250 mg tablet Take 1 tablet every 12 hours by oral route for 7 days. active Not Available Not Available No t Available Tamiflu 75 mg capsule Take 1 capsule twice a day by oral route as directed for 5 days. 07/22 completed Not Available Not Available Not Available amoxicillin 500 mg tablet Take 1 tablet twice a day by oral route for 10 days. 03/20 completed Not Available Not Available Not Available amoxicillin 875 mg tablet Take 1 tablet twice a day by oral route for 7 days. active Not Available Not Available No t Available citalopram 20 mg tablet TAKE 1 TABLET BY MOUTH EVERY DAY 09/19 completed Not Available Not Available Not Available famotidine 20 mg tablet Take 1 tablet twice a day by oral route. active Not Available Not Available No t Available pravastatin 10 mg tablet Take 1 tablet every day by oral route. active Not Available Not Available No t Available DOK 100 mg capsule TAKE 1 CAPSULE BY MOUTH EVERY DAY active Not Available Not Available No t Available Kenalog 10 mg/mL suspension for injection in office 08/04 completed [facility]: [phone] Not Available Not Available Not Available meclizine 25 mg tablet Take 1 tablet 3 times a day by oral route as needed. active Not Available Not Available No t Available hyoscyamine 0.125 mg disintegrat ing tablet Place 1 tablet every 4 hours by sublingua l route. 02/12 completed Not Available Not Available Not Available cephalexin 500 mg capsule active Not Available Not Available Not Available pantoprazol e 40 mg tablet,carlotta yed release TAKE 1 TABLET BY MOUTH DAILY 11/09 completed Not Available Not Available Not Available ranitidine 150 mg tablet Take 1 tablet twice a day by oral route. 09/13 completed Not Available Not Available Not Available buspirone 10 mg tablet Take 1 tablet 3 times a day by oral route for 90 days. 12/13 completed Not Available Not Available Not Available losartan 25 mg tablet Take 1 tablet every day by oral route. active Not Available Not Available No t Available omeprazole 20 mg capsule,del ayed release Take 1 capsule every day by oral route for 90 days. 12/13 completed Not Available Not Available Not Available codeine 10 mg-guaifene sin 100 mg/5 mL oral liquid Take 10 mL every 4 hours by oral route for 3 days. 03/14 completed Not Available Not Available Not Available azelastine 137 mcg (0.1 %) nasal spray INSTILL 1-2 SPRAYS INTO EACH NOSTRIL EVERY 12 HOURS. AIM BACK, UP AND OUT active Not Available Not Available No t Available polyethylen e glycol 3350 17 gram/dose oral powder MIX 1 CAPFUL IN 4-8 OZ OF LIQUID ONCE DAILY NEEDED FOR CONSTIPAT ION active Not Available Not Available No t Available fluticasone propionate 50 mcg/actuati on nasal spray,suspe nsion USE 2 SPRAYS IN EACH NOSTRIL QD 12/03 completed Not Available Not Available Not Available betamethaso ne dipropionat e 0.05 % lotion APPLY TO ITCHY SCALP TWICE DAILY NEEDED 09/08 completed Not Available Not Available Not Available doxycycline hyclate 100 mg tablet Take 1 tablet twice a day by oral route for 7 days. active Not Available Not Available No t Available mometasone 0.1 % topical cream APPLY SPARINGLY TO AFFECTED AREA EVERY DAY 09/08 completed Not Available Not Available Not Available amoxicillin 875 mg-potassiu m clavulanate 125 mg tablet TAKE 1 TABLET BY MOUTH TWICE A DAY 01/03 completed Not Available Not Available Not Available tobramycin 0.3 %-dexametha sone 0.1 % eye drops,suspe nsion SHAKE LIQUID AND INSTILL 1 DROP IN RIGHT EYE FOUR TIMES DAILY. START DROPS AFTER SURGERY 09/08 completed Not Available Not Available Not Available escitalopra m 10 mg tablet TAKE 1 TABLET BY MOUTH EVERY DAY active Not Available Not Available No t Available bupropion HCl XL 150 mg 24 hr tablet, extended release Take 1 tablet every day by oral route. 07/31 completed Not Available Not Available Not Available nitrofurant oin monohydrate /macrocryst als 100 mg capsule TAKE 1 CAPSULE BY MOUTH EVERY 12 HOURS FOR 7 DAYS 07/31 completed Not Available Not Available Not Available duloxetine 60 mg capsule,del ayed release TAKE 1 CAPSULE BY MOUTH TWICE DAILY WITH FOOD 01/12 completed Not Available Not Available Not Available lysine 09/13 completed Not Available Not Available Not Available Co Q-10 05/16 completed Not Available Not Available Not Available lidocaine (PF) 10 mg/mL (1 %) injection solution In office injection administe red by the provider 06/17 completed [facility] [place]: [phone] Not Available Not Available Not Available lidocaine (PF) 5 mg/mL (0.5 %) injection solution In office injection administe red by the provider 05/03 completed Not Available Not Available Not Available ProAir HFA 90 mcg/actuati on aerosol inhaler INHALE 2 PUFFS EVERY 4 HOURS NEEDED. active Not Available Not Available No t Available fluocinolon e acetonide oil 0.01 % ear drops 5 DROPS, RIGHT EAR, SEVERAL TIMES PER WEEK. MAX, 5 DROPS DAILY. active Not Available Not Available No t Available oseltamivir 30 mg capsule 09/20 completed Not Available Not Available Not Available Lumigan 0.01 % eye drops DROP 1 DROP INTO THE AFFECTED EYE(S) ONCE EVERY NIGHT IN THE EVENING active Not Available Not Available No t Available OBMedical 1.5 billion cell capsule Take 1 capsule every day by oral route in the morning for 30 days. 03/28 completed Not Available Not Available Not Available ropivacaine (PF) 5 mg/mL (0.5 %) injection solution in office 08/04 completed [facility] [phone] Not Available Not Available Not Available Shingrix (PF) 50 mcg/0.5 mL intramuscul ar suspension, kit 03/24 completed Not Available Not Available Not Available Fluzone High-Dose 2019-20 (PF) 180 mcg/0.5 mL intramuscul ar syringe active Not Available Not Available N ot Available Fluad Quad (6 5yr up)(PF) 60 mcg (15 mcg x 4)/0.5mL IM syringe ADM 0.5ML IM UTD active Not Available Not Available No t Available Flowflex COVID-19 Antigen Home Test kit USE DIRECTED 01/11 completed Not Available Not Available Not Available Vitals Date Recorded Body height Body mass index (BMI) Body weight Heart rate Oxygen saturation Oxygen saturation in Arterial blood by Pulse oximetry Systolic blood pressure Diastolic blood pressure Provider Name and Address Organization Details Last Updated DateTime 151.13 cm 25.8 kg/m2 53556.0 1 g 84 /min 97 % 97 % 146 mm[Hg] 74 mm[Hg] Mary Guerra RN [facility] 10:52:40 Date Recorded Body temperature Provider Name a nd Address Organization Details Last Updated DateTime 01/04/2024 97.6 [degF] Fadumo Benites MD [address] [facility] [address], [place], [address], [employer] 01/04/2024 10:57:11 Social History Question Answer Notes LastModified by Organization Details LastModified Time Tobacco Smoking Status Never Smoker Not Available [employer] 12/08/2022 08:06:16 Do You Have An Advance Directive? Yes MIGRATION.0301 [id number] Information not available 12/08/2022 What Is Your Level Of Alcohol Consumption? None MIGRATION.0301 [id number] Information not available 12/08/2022 Are You Blind Or Do You Have Difficulty Seeing? Yes Wears Glasses MIGRATION.0301 [id number] Information not available 12/08/2022 What Is Your Level Of Caffeine Consumption? Moderate MIGRATION.0301 360050 Information not available 12/08/2022 How Much Tobacco Do You Chew? None MIGRATION.0301 384561 Information not available 12/08/2022 In The 14 Days Before Symptom Onset, Have You Had Close Contact With A Laboratory-confi rmed COVID-19 While That Case Was Ill? No MIGRATION.0301 [id number] Information not available 12/08/2022 In The 14 Days Before Symptom Onset, Have You Had Close Contact With A Person Who Is Under Investigation For COVID-19 While That Person Was Ill? No MIGRATION.0301 [id number] Information not available 12/08/2022 Are You Deaf Or Do You Have Serious Difficulty Hearing? Yes Wears Hearing Aids MIGRATION.0301 790131 Information not available 12/08/2022 What Type Of Diet Are You Following? REGULAR MIGRATION.0301 432273 Information not available 12/08/2022 Which Illicit Or Recreational Drugs Have You Used? No MIGRATION.0301 040001 Information not available 12/08/2022 Do You Or Have You Ever Used E-cigarettes Or Vape? Never Used Electronic Cigarettes MIGRATION.0301 [id number] Information not available 12/08/2022 What Is Your Occupation? Retired MIGRATION.0301 703574 Information not available 12/08/2022 Have There Been Any Changes To Your Family Or Social Situation? No MIGRATION.0301 171672 Information not available 12/08/2022 What Is The Fluoride Status Of Your Home? Unknown MIGRATION.0301 438545 Information not available 12/08/2022 Do You Use Insect Repellent Routinely? No MIGRATION.0301 033664 Information not available 12/08/2022 Where Do You Live? SingleLevelHouse MIGRATION.0301 072447 Information not available 12/08/2022 Do You Have A Medical Power Of Water Valve Mechanic? Yes MIGRATION.0301 [id number] Information not available 12/08/2022 What Was The Date Of Your Most Recent Tobacco Screening? 09/08/2023 [email or web address] Information not available 09/08/2023 What Is Your Relationship Status? MIGRATION.0301 [id number] Information not available 12/08/2022 Do You Use Your Seat Belt Or Car Seat Routinely? Yes MIGRATION.0301 469318 Information not available 12/08/2022 Do You Have Smoke And Carbon Monoxide Detectors In Your Home? Yes MIGRATION.0301 533701 Information not available 12/08/2022 Do You Or Have You Ever Used Smokeless Tobacco? Never Used Smokeless Tobacco MIGRATION.0301 976970 Information not available 12/08/2022 How Much Tobacco Do You Smoke? No MIGRATION.0301 650964 Information not available 12/08/2022 Do You Use Any Illicit Or Recreational Drugs? No MIGRATION.0301 190665 Information not available 12/08/2022 Do You Use Sunscreen Routinely? No MIGRATION.0301 748856 Information not available 12/08/2022 Has Tobacco Cessation Counseling Been Provided? No MIGRATION.0301 596816 Information not available 12/08/2022 Have You Recently Traveled Abroad? No MIGRATION.0301 907997 Information not available 12/08/2022 Do You Have Any Dietary Restrictions? No MIGRATION.0301 914537 Information not available 12/08/2022 Do You Or Have You Ever Used Any Other Forms Of Tobacco Or Nicotine? No MIGRATION.0301 584267 Information not available 12/08/2022 Sex: Unknown Functional Status Question Answer Note LastModified by [employer] Details LastModified Time Do you have difficulty walking or climbing stairs? No MIGRATION.[id number] 026 Information not available 12/08/2022 Do you have transportation difficulties? No MIGRATION.4487085 026 Information not available 12/08/2022 Are you able to walk? YESWOREST MIGRATION.9279382 026 Information not available 12/08/2022 Do you have difficulty doing errands alone? No MIGRATION.0040180 026 Information not available 12/08/2022 Are you able to care for yourself? Yes MIGRATION.5592395 026 Information not available 12/08/2022 Do you have difficulty dressing or bathing? No MIGRATION.7267778 026 Information not available 12/08/2022 What is your exercise level? Occasional MIGRATION.6037131 026 Information not available 12/08/2022 Mental Status Question Answer Note LastModified by [employer] Details LastModified Time Do you have difficulty concentrating, remembering or making decisions? No MIGRATION.[id number] 6 Information not available 12/08/2022 Family History Relationship Description Onset Age of this Age Resolved Age Notes LastModified by Organization Details LastModified Time Mother Heart disease MIGRATION.403 [id number] Not available 12/08/2022 08:06:28 Mother Glaucoma MIGRATION.328 [id number] Not available 12/08/2022 08:06:28 Mother Alzheimer's disease MIGRATION.844 [id number] Not available 12/08/2022 08:06:28 Father Diabetes mellitus MIGRATION.517 [id number] Not available 12/08/2022 08:06:28 Father Essential hypertension MIGRATION.958 [id number] Not available 12/08/2022 08:06:28 Notes:LOSS OF HEARING: FATHE R, GRANDFATHER Medical History Condition Response BLINDNESS N RHEUMATIC FEVER N KIDNEY STONES Y BLADDER PROBLEMS N OTHER # 1 N POLIO N LUNG DISEASE/DISORDER N RADIATION / CHEMOTHERAPY N COPD N Other # 2 N BLOOD DISEASES N SURGERY N EAR OR HEARING PROBLEMS Y MUMPS N BOWEL PROBLEMS Y FEMALE PROBLEMS / INFECTIONS N DEPRESSION (INCLUDING POST ) Y STROKE/TIA N THYROID DISEASE N ULCERS N BENIGN PROSTATIC HYPERPLASIA N MEASLES N CERVICALGIA N TB SKIN TEST N MYOCARDIAL INFARCTION N PARAPELGIA N OBESITY N GERD/NAUSEA Y ANEURYSM N URINARY/BLADDER/KIDNEY PROBLEMS Y INPATIENT PSYCH CARE N CORONARY ARTERY DISEASE (CAD) N MENIERE'S DISEASE N ADDICTION CONCERNS N ENDOMETRIOSIS N USE OF BLOOD THINNERS N SKIN PROBLEMS N EMPHYSEMA N GASTROINTESTINAL DISORDER N MUSCLE,JOINT OR BONE PROBLEMS N GASTROINTESTINAL BLEEDING N BLOOD CLOTS N ASTHMA N CATARACTS N ERECTILE DYSFUNCTION N GI PROBLEMS N CHF N Low Testosterone N NEUROPATHY N INFERTILITY N AIDS/HIV N FRACTURES N VISION/EYE PROBLEMS N LIVER DISEASE N MALE HYPOGONADISM N HYPERTENSION Y ANXIETY DISORDER N BLOOD TRANSFUSION N ANEMIA/BLOOD DISORDER Y CHRONIC EAR INFECTIONS N BRONCHITIS N TUBERCULOSIS N GLAUCOMA N FOOT PROBLEM N DIVERTICULITIS N CHICKENPOX N SLEEP APNEA N ALLERGIES/HAYFEVER N INFECTIOUS DISEASE N HEART ARRHYTHMIA N PROSTATE N INSOMNIA N HIGH CHOLESTEROL / HYPERLIPIDEMIA Y HYPERTHYROIDISM N EYE PROBLEMS N EATING DISORDER N NEUROLOGICAL PROBLEMS N EDEMA N CHRONIC PAIN SYNDROME N HYPOTHYROIDISM N CAROTID BLOCKAGE N CONSTIPATION N BACK / NECK PROBLEMS N HAVE YOU BEEN HOSPITALIZED OR SEEN IN [facility] IN THE PAST YEAR ? N ATHEROSCLEROSIS N BREAST PROBLEMS N DIALYSIS N ECZEMA N FIBROMYALGIA N OSTEOPOROSIS N ARTHRITIS Y NO SIGNIFICANT PAST MEDICAL HISTORY N APPENDICITIS N DIABETES, TYPE N BAD TEETH N HEARTBURN / REFLUX N ADD/ADHD N AUTISM SPECTRUM DISORDER (ASD) N HEPATITIS / LIVER DISEASE N PULMONARY DISEASE N GOUT N SLEEP DISORDER N ALZHEIMER'S DISEASE N PAIN N HERPES N DEMENTIA N HEADACHES/MIGRAINES N SEIZURES/EPILEPSY N VASCULAR DISEASE N PACEMAKER N DIZZINESS N HEART DISEASE/HEART PROBLEMS N KIDNEY DISEASE Y DEVELOPMENTAL OR BEHAVIORAL DISORDERS N MULTIPLE SCLEROSIS N SCARLET FEVER N MENTAL DISORDER/ILLNESS N CARDIAC ARRHYTHMIA N CANCER: SPECIFY N ANESTHESIA COMPLICATIONS N PNEUMONIA N ATRIAL FIBRILLATION N PULMONARY EMBOLISM N AUTOIMMUNE DISEASE N Gynecological History Statement/Question Response Current Control Method Menopause Obstetrics History GPAL:G 0 P 0 0 0 0 Immunizations Vaccine Type Date Status Note Provider Nam e and Address Organization Details Recorded Time Tdap 3 completed Fadumo Benites MD [address] [facility], [facility] [address], [place], [address], [facility] 09/08/2023 19:25:39 influenza, unspecified formulation 2 completed Not Available [facility] 10/09/2023 08:34:04 Influenza, split virus, quadrivalent, preservative 9 completed Not Available [facility] 10/09/2023 08:34:04 Influenza, high-dose, trivalent, PF 6 completed Not Available [facility] 10/09/2023 08:34:04 Influenza, split virus, trivalent, preservative 5 completed Not Available [facility] 10/09/2023 08:34:04 Influenza, split virus, trivalent, preservative 4 completed Not Available [facility] 10/09/2023 08:34:04 Tdap 3 completed Not Available [facility] 10/09/2023 08:34:04 pneumococcal polysaccharide PPV23 2 completed Not Available [facility] 10/09/2023 08:34:04 zoster live 8 completed Not Available [facility] 10/09/2023 08:34:04 pneumococcal polysaccharide PPV23 6 completed Not Available [facility] 10/09/2023 08:34:04 pneumococcal polysaccharide PPV23 0 completed Not Available [facility] 10/09/2023 08:34:04 Influenza, high-dose, quadrivalent, PF 1 completed Not Available [facility] 10/09/2023 08:34:04 Influenza, high-dose, trivalent, PF 7 completed Not Available [facility] 10/09/2023 08:34:04 Pneumococcal conjugate PCV 13 7 completed Not Available [facility] 10/09/2023 08:34:04 Past Encounters Encounter ID Performer Location Encounter Start Date Encounter Closed Date Diagnosis/Indication Diagnosis SNOMED-CT Code Diagnosis ICD10 Code Diagnosis Note [id number] [facility] [place] [address] [facility] [address] [place] [address] 12/18/2020 00:00:00 12/30/2020 14:45:20 [id number] [facility] [place] [address] [facility] [address] [place] [address] 01/16/2021 00:00:00 01/16/2021 10:40:29 [id number] [facility] [place] [address] [place] [address] 03/16/2021 00:00:00 03/17/2021 10:56:42 [id number] _ATHENA_M IGRATION_ DEFAULT_1 _1 , 04/01/2021 00:00:00 04/01/2021 16:19:58 [id number] [facility] [place] [address] [place] [address] 04/03/2021 00:00:00 04/03/2021 12:18:42 [id number] _ATHENA_M IGRATION_ DEFAULT_1 _1 , 06/17/2021 00:00:00 06/17/2021 14:34:07 [id number] [facility] [place] [address] [facility] [address] [place] [address] 06/22/2021 00:00:00 06/22/2021 12:47:39 [id number] [facility] [place] [address] [facility] [address] [place] [address] 07/08/2021 00:00:00 07/08/2021 18:07:23 [id number] [facility] [place] [address] [facility] [address] [place] [address] 07/21/2021 00:00:00 07/21/2021 13:03:44 [id number] [facility] [place] [address] [facility] [address] [place] [address] 11/23/2021 00:00:00 11/23/2021 12:28:24 [id number] [facility] [address] [address] 12/03/2021 00:00:00 12/03/2021 12:19:13 [id number] [facility] [place] [address] [facility] [address] [place] [address] 02/12/2022 00:00:00 02/12/2022 09:17:35 [id number] [facility] [place] [address] [place] [address] 04/16/2022 00:00:00 04/16/2022 11:07:00 [id number] [facility] [address] [address] 04/22/2022 00:00:00 04/22/2022 09:18:05 [id number] [facility] [place] [address] [facility] [address] [place] [address] 04/30/2022 00:00:00 04/30/2022 18:11:04 [id number] _ATHENA_M IGRATION_ DEFAULT_1 _1 , 06/16/2022 00:00:00 06/16/2022 14:24:11 [id number] [facility] [place] [address] [facility] [address] [place] [address] 08/25/2022 00:00:00 08/25/2022 14:03:32 [id number] [facility] [place] [address] [place] [address] 09/08/2022 00:00:00 09/08/2022 17:46:24 [id number] [facility] [place] [address] [place] [address] 09/22/2022 00:00:00 10/06/2022 20:46:44 [id number] Fadumo Benites MD [facility] Primary Care [facility] [address] [facility] [address] [place] [address] 03/16/2023 13:59:56 03/16/2023 15:06:33 Depressive disorder 16669410 F32.A not in good controld/c duloxetine and trial of bupropion xl 150 mg dailytake with food in AMReviewed potential med s/e, d/c and be seen if any si/hi Thyroid fu nction tests abnormal 358684478 R94.6 had normalized at last check in check labson no meds [id number] ADELA Weinstein [facility] [place] [address] [place] [address] 03/25/2023 14:19:03 03/25/2023 15:13:05 Bilateral hip joint pain 7805328336 7948833 M25.551 M25.552 [id number] Fadumo Benites MD [facility] Primary Care [facility] [address] [facility] [address] [place] [address] 05/26/2023 08:36:36 05/26/2023 09:32:26 Depressive disorder 66566336 F32.A doing very wellcontin ue bupropion xl 150 mg dailytake with food in AMf/u in August at previously scheduled annual appt [id number] Christy Hughes MD [facility] General Surgery [address] [place] [address] 06/15/2023 15:01:55 06/15/2023 15:52:11 Gastroesophageal reflux disease without esophagitis 924333855 K21.9 [id number] José Miguel Donnelly MD [facility] [place] [address] [place] [address] 06/22/2023 12:11:53 06/22/2023 12:55:12 Impacted cerumen in right ear 5270392344 764448 H61.21 Eczema of external auditory canal 82508191 H60.684 [id number] Dustin Mackey MD [facility] [address] [place] [address] 08/04/2023 14:27:45 08/08/2023 10:48:44 Bilateral hip joint pain 9529423866 2864945 M25.551 M25.552 M70.62 M70.61 [id number] Fadumo Benites MD [facility] [address] [facility] [address] [facility] [place] [address] 09/08/2023 10:52:21 09/08/2023 11:50:57 Adult health examination 860968673 Z00.00 Fasting labs orderedS/p hysterecto my no further paps neededReco mmended annual flu vaccinesCo vid booster 08/26/23Sh e has completed shingles vaccinePre vnar 13, pneumovax 23 doneCologu ish normal 05/2020-no further screening neededMamm ogram orderedFas ting labs up to dateHep C screen done 2016DEXA done 04/2019, normal repeat ordered Screening mammography 24 101879 Z12.31 Postmenopausal state 764 24572 Z78.0 Active or passive immunization 130334028 Z23 Chronic ki dney disease stage 3 683467200 N18.30 Essential hypertension 60728982 I10 Gastroesop hageal reflux disease without esophagitis 010975081 K21.9 Glaucoma 52045813 H40.9 Hyperlipidemia 48943192 E78.5 Iron defic iency anemia 07585205 D50.9 Thyroid fu nction tests abnormal 413751622 R94.6 recheck labson no meds Vitamin D deficiency 347 18306 E55.9 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 [address] [place] [address] 12/12/2023 10:32:48 12/14/2023 10:14:27 [id number] Fadumo Benites MD [facility] Primary Care [facility] [address] [facility] [address] [facility] [place] [address] 12/22/2023 10:39:54 12/22/2023 12:29:47 [id number] Fadumo Benites MD [facility] Primary Care [facility] [address] [facility] [address] [place] [address] 12/27/2023 11:57:49 12/27/2023 12:26:10 [id number] Fadumo Benites MD [facility] Primary Care [place] [facility] [address] [facility] [address] [place] [address] 01/04/2024 10:45:55 01/04/2024 11:34:07 Acute urinary tract infection 696937708 N39.0 Finished abx yesterdayw ould like test of cure next week Mixed anxi ety and depressive disorder 214276361 F41.8 having appetite suppressio n with bupropion xl 300 mgdecrease to 150 mg dailyif not effective, consider escitalopr am 10 mg daily Depressive disorder 3548 9007 F32.A Gastroesop hageal reflux disease without esophagitis 873426010 K21.9 Renewal of prescription 613243543 Z76.0 Essential hypertension 59111114 I10 Hyperlipidemia 98576477 E78.5 Chronic ki dney disease stage 3 157754132 N18.30 Iron defic iency anemia 60771684 D50.9 Thyroid fu nction tests abnormal 787640460 R94.6 recheck labson no meds Vitamin D deficiency 347 25765 E55.9 Cobalamin deficiency 190 635596 E53.8 [id number] Fadumo Benites MD [facility] Primary Care [place] [facility] [address] [facility] [address] [place] [address] 01/10/2024 12:26:33 01/10/2024 12:41:27 Health Concerns Section Related Observation LastModified by Organization Detai ls LastModified Time None Recorded Concern Status LastModified by Organization Details LastModified Time None Recorded Advance Directives Directive Y: Payers Encounter Date Sequence Insurance Name Policy Number Policy Welsh Covered Member ID Welsh Member ID Guarantor Name 12/12/2023 1 [employer] (MEDICARE REPLACEMENT PPO) [id number] 1 Meme Temple [id number] Meme Temple 12/22/2023 1 [employer] (MEDICARE REPLACEMENT PPO) [id number] Meme Brunnerard [id number] Meme Temple 12/27/2023 1 [employer] (MEDICARE REPLACEMENT PPO) [id number] Meme Brunnerard [id number] Meme Temple 01/04/2024 1 [employer] (MEDICARE REPLACEMENT PPO) [id number] Meme Brunnerard [id number] Meme Temple 01/10/2024 1 [employer] (MEDICARE REPLACEMENT PPO) [id number] MemeAlva Brunnerard [id number] Meme Temple Notes Date Note Type Note Provider Name and Address Organization Details Recorded Time 01/04/2024 text/html Here to f/u, finished her abx for ecoli uti yesterday, wants test of cure in future she is on bupropion xl 300 mg daily (2 of the 150 mg), she is having appetite suppression and has lost several pounds Fadumo Benites MD [address] [place] [address], [facility] [address], [place], [address], [place] [facility] [employer] 01/06/2024 14:07:04 OBGyn Episode No OBEpisode recorded.
== END 2024-11-15 10:29 | disposition home or self-care (01) ==
LOC: ANHIMG 10:29
PROVIDERS: PCP Internal Medicine; Visit Provider Clinical Nurse Specialist
DX: Z12.31 Encounter for screening mammogram for malignant neoplasm of breast (principal); R92.8 Other abnormal and inconclusive findings on diagnostic imaging of breast
CPT/HCPCS: 77063; 77067

== ENCOUNTER 2024-11-15 13:24 | Outpatient (NON) | payer MEDICARE, SELFPAY ==
--- OUTSIDE RECORDS SUMMARY | 2024-11-15 13:34 | XMS_ITS | Clinical Summary ---
Author Organization [facility] Ivania narvaez Address [address] [place] [address] Phone Care Team Providers Care Information Coder Name Role Phone Deepthi Benites MD Primary Care Provider Allergies No known active allergies Medications Medication Sig Dispensed Refills Start Date End Date Status B Mmetyjy-Bddjyz-UH (SUPER B-50 B COMPLEX) capsule 11/22/2012 Active [...] Comments Blood Pressure 128/70 09/12/2019 1:05 PM NURSE RECRUITER Pulse 84 09/12/2019 1:05 PM NURSE RECRUITER Temperature 35.7 C (96.3 F) 09/12/2019 1:05 PM NURSE RECRUITER Respiratory Rate 14 11/20/2012 12:01 AM NURSE RECRUITER Oxygen Saturation - - Inhaled Oxygen Concentration - - Weight 65.3 kg (144 lb) 09/12/2019 1:05 PM NURSE RECRUITER Height 154.9 cm (5' 1 ) 09/12/2019 1:05 PM NURSE RECRUITER Body Mass Index 27.21 09/12/2019 1:05 PM NURSE RECRUITER Plan of Treatment Health Maintenance Due Date Last Done Comments Influenza Vaccine (#1) 2024 07/18/2015, 2013 Pneumococcal PPSV23/PCV13 65 + Years / Low and Medium Risk Completed 12/13/2016, 07/25/2012, 07/10/2006, Additional history exists Care Teams Information Coder Relationship Specialty Start Date End Date Deepthi Benites MD [address] [place] [address] PCP - General Internal Medicine 09/12/19
--- OUTSIDE RECORDS SUMMARY | 2024-11-15 13:35 | XMS_ITS | Clinical Summary ---
Author Organization [facility] Address [address] [place] [address] Care Team Providers Care Histology Technician Name Role Phone Nemo Luu MD Primary Care Provider Source Comments [facility],non-owned Affiliates and Associated Physician Practices is amultiple site organization consisting of ambulatory clinics and hospital sitesin [place], [place], [place] and [place]. This disclosure is being madepursuant to the Care Everywhere program and may not contain all information available regarding this patient. Last updated 18.[facility] Encounters Date Type Department Care Team Description 08/20/2024 Lab Requisition [facility] - DermPath Lab [address] [facility], [place] [phone] Carroll Jamison MD from Last 3 Months [...] Comments DERMATOPATHOLOGY Routine 08/17/2024 12:0 0 AM FALL INTERN from Last 3 Months Results * DERMATOPATHOLOGY (08/17/2024 12:00 AM FALL INTERN) Case Report Dermatopathology Report Case: [id number] Authorizing Provider: Carroll Jamison MD Collected: 08/17/2024 12:00 AM Ordering Location: [facility] - Received: 08/20/2024 02:20 PM DermPath Lab Pathologist: Fifi Harley MD Specimen: Skin, right posterior base of scalp @ hairline 3:16 PM FALL INTERN DERMATOPATHOLOGY LABORATORY Final Diagnosis Specimen A. SKIN, right posterior base of scalp @ hairline: RUPTURED EPIDERMOID CYST (L72.0) PRESENT AT MARGIN 3:16 PM FALL INTERN DERMATOPATHOLOGY LABORATORY Clinical History R/O BCC vs Cyst Please check margins 3:16 PM [facility] DERMATOPATHOLOGY LABORATORY Gross Description Specimen A: Received is one formalin filled container labeled with the patients name and designated right posterior base of scalp @ hairline. The specimen consists of a shave removal measuring 6x5x2 mm. Jar 0. 3:16 PM FALL INTERN DERMATOPATHOLOGY LABORATORY Microscopic Description Specimen A. SKIN, right posterior base of scalp @ hairline: Within the dermis, there is an infiltrate composed of lymphocytes and histiocytes, including multinucleated type giant cells. Some histiocytes contain flakes of material consistent with keratin. This lesion is present at the margin of the specimen. 3:16 PM [facility] DERMATOPATHOLOGY LABORATORY Disclaimer An external and internal positive and negative controls are appropriate for the histochemical, immunohistochemical and immunofluorescence stain(s) in this case (if any), except where stated explicitly. The performance characteristics of the stain(s) cited in this report were developed and its performance characteristic determined by the Dermatopathology Laboratory at [facility], directed by Dr. Charlette Arteaga. These tests need not be, and therefore are not, approved by the [place] Food and Drug Administration. The tests are used for clinical purposes. Billing Codes Specimen Charges Stain Charges 02222 1 4 3:16 PM FALL INTERN DERMATOPATHOLOGY LABORATORY Embedded Images 4 3:16 PM FALL INTERN DERMATOPATHOLOGY LABORATORY Pathology/Cytolog y TISSUE SPECIMEN FROM SKIN / Unknown 08/17/2024 08/20/2024 2:20 PM FALL INTERN Carroll Jamison MD LAB - PATHOLOGY/CYTO LOGY ORDERABLES Performing Organization Address City/State/[facility] Co de Phone Number DERMATOPATHOLOGY LABORATORY [facility] - Department of Dermatology [address], [address] [phone] from Last 3 Months Care Teams Histology Technician Relationship Specialty Start Date End Date Nemo Luu MD [address] [place] [phone] PCP - General 02/21/15
--- OUTSIDE RECORDS SUMMARY | 2024-11-15 13:35 | XMS_ITS | Patient Health Summary ---
Author Organization [facility] Address [address] [facility] [place] [address] Care Team Providers Care Supervisor Lens Generating Name Role Phone Nemo Luu MD Primary Care Provider [phone] Note from [facility],non-owned Affiliates and Associated Physician Practices is amultiple site organization consisting of ambulatory clinics and hospital sitesin [place], [place], [place] and [place]. This disclosure is being madepursuant to the Care Everywhere program and may not contain all information available regarding this patient. Last updated 18.[facility] Social History Tobacco Use Types Packs/Day Years Used Date Smoking Tobacco: Never Assessed Sex and Gender Information Value Date Recorded Sex Assigned at Not on file Gender Identity Not on file Sexual Orientation Not on file Procedures * DERMATOPATHOLOGY(Performed 08/17/2024) * DERMATOPATHOLOGY(Performed 02/20/2015) Results * DERMATOPATHOLOGY (08/17/2024 12:00 AM CRAYON PAINTER) Only the most recent of2 resultswithin the time period is included. Case Report Dermatopathology Report Case: [id number] Authorizing Provider: Carroll Jamison MD Collected: 08/17/2024 12:00 AM Ordering Location: [facility] - Received: 08/20/2024 02:20 PM DermPath Lab Pathologist: Fifi Harley MD Specimen: Skin, right posterior base of scalp @ hairline 4 3:16 PM CRAYON PAINTER DERMATOPATHOLOGY LABORATORY Final Diagnosis Specimen A. SKIN, right posterior base of scalp @ hairline: RUPTURED EPIDERMOID CYST (L72.0) PRESENT AT MARGIN 4 3:16 PM CRAYON PAINTER DERMATOPATHOLOGY LABORATORY Clinical History R/O BCC vs Cyst Please check margins 3:16 PM [facility] DERMATOPATHOLOGY LABORATORY Gross Description Specimen A: Received is one formalin filled container labeled with the patients name and designated right posterior base of scalp @ hairline. The specimen consists of a shave removal measuring 6x5x2 mm. Jar 0. 3:16 PM [facility] DERMATOPATHOLOGY LABORATORY Microscopic Description Specimen A. SKIN, right posterior base of scalp @ hairline: Within the dermis, there is an infiltrate composed of lymphocytes and histiocytes, including multinucleated type giant cells. Some histiocytes contain flakes of material consistent with keratin. This lesion is present at the margin of the specimen. 3:16 PM [facility] DERMATOPATHOLOGY LABORATORY Disclaimer An external and internal positive and negative controls are appropriate for the histochemical, immunohistochemical and immunofluorescence stain(s) in this case (if any), except where stated explicitly. The performance characteristics of the stain(s) cited in this report were developed and its performance characteristic determined by the Dermatopathology Laboratory at [facility], directed by Dr. Charlette Arteaga. These tests need not be, and therefore are not, approved by the [place] Food and Drug Administration. The tests are used for clinical purposes. Billing Codes Specimen Charges Stain Charges 78751 1 3:16 PM [facility] DERMATOPATHOLOGY LABORATORY Embedded Images 3:16 PM [facility] DERMATOPATHOLOGY LABORATORY Pathology/Cytolog y TISSUE SPECIMEN FROM SKIN / Unknown 08/17/2024 08/20/2024 2:20 PM CRAYON PAINTER Carroll Jamison MD LAB - PATHOLOGY/CYTO LOGY ORDERABLES DERMATOPATHOLOGY LABORATORY [facility] - Department of Dermatology [facility] [address] [place] [address], [address] [phone] Care Teams Supervisor Lens Generating Relationship Specialty Start Date End Date Nemo Luu MD [address] [facility] [address] [place] [phone] PCP - General 02/21/15
--- OUTSIDE RECORDS SUMMARY | 2024-11-15 13:35 | XMS_ITS | Referral Summary ---
Author Organization [facility] Address [address] [place] [address] Care Team Providers Care Garment Sewer Hand Name Role Phone Nemo Luu MD Primary Care Provider Source Comments [facility],non-owned Affiliates and Associated Physician Practices is amultiple site organization consisting of ambulatory clinics and hospital sitesin [place], [place] and [place]. This disclosure is being madepursuant to the Care Everywhere program and may not contain all information available regarding this patient. Last updated 18.[facility] Encounters Date Type Department Care Team Description 08/20/2024 Lab Requisition [facility] - DermPath Lab [address] [facility], [place] [phone] Carroll Jamison MD from Last 3 Months Social History Tobacco Use Types Packs/Day Years Used Date Smoking Tobacco: Never Assessed Sex and Gender Information Value Date Recorded Sex Assigned at Not on file Gender Identity Not on file Sexual Orientation Not on file Plan of Treatment Not on file Procedures Procedure Name Priority Date/Time Associated Diagnosis Comments DERMATOPATHOLOGY Routine 08/17/2024 12:0 0 AM CRISIS MANAGER from Last 3 Months Results * DERMATOPATHOLOGY (08/17/2024 12:00 AM CRISIS MANAGER) Case Report Dermatopathology Report Case: [id number] Authorizing Provider: Carroll Jamison MD Collected: 08/17/2024 12:00 AM Ordering Location: [facility] - Received: 08/20/2024 02:20 PM DermPath Lab Pathologist: Fifi Harley MD Specimen: Skin, right posterior base of scalp @ hairline 3:16 PM CRISIS MANAGER DERMATOPATHOLOGY LABORATORY Final Diagnosis Specimen A. SKIN, right posterior base of scalp @ hairline: RUPTURED EPIDERMOID CYST (L72.0) PRESENT AT MARGIN 3:16 PM CRISIS MANAGER DERMATOPATHOLOGY LABORATORY Clinical History R/O BCC vs Cyst Please check margins 3:16 PM [facility] DERMATOPATHOLOGY LABORATORY Gross Description Specimen A: Received is one formalin filled container labeled with the patients name and designated right posterior base of scalp @ hairline. The specimen consists of a shave removal measuring 6x5x2 mm. Jar 0. 3:16 PM [facility] DERMATOPATHOLOGY LABORATORY Microscopic Description Specimen A. SKIN, right posterior base of scalp @ hairline: Within the dermis, there is an infiltrate composed of lymphocytes and histiocytes, including multinucleated type giant cells. Some histiocytes contain flakes of material consistent with keratin. This lesion is present at the margin of the specimen. 3:16 PM CRISIS MANAGER DERMATOPATHOLOGY LABORATORY Disclaimer An external and internal positive and negative controls are appropriate for the histochemical, immunohistochemical and immunofluorescence stain(s) in this case (if any), except where stated explicitly. The performance characteristics of the stain(s) cited in this report were developed and its performance characteristic determined by the Dermatopathology Laboratory at [facility], directed by Dr. Charlette Arteaga. These tests need not be, and therefore are not, approved by the [place] Food and Drug Administration. The tests are used for clinical purposes. Billing Codes Specimen Charges Stain Charges 17824 1 3:16 PM CRISIS MANAGER DERMATOPATHOLOGY LABORATORY Embedded Images 4 3:16 PM [facility] DERMATOPATHOLOGY LABORATORY Pathology/Cytolog y TISSUE SPECIMEN FROM SKIN / Unknown 08/17/2024 08/20/2024 2:20 PM CRISIS MANAGER Carroll Jamison MD LAB - PATHOLOGY/CYTO LOGY ORDERABLES DERMATOPATHOLOGY LABORATORY [facility] - Department of Dermatology [address] [place] [address], [facility] [phone] from Last 3 Months Care Teams Garment Sewer Hand Relationship Specialty Start Date End Date Nemo Luu MD [address] [place] [phone] PCP - General 02/21/15
--- OUTSIDE RECORDS SUMMARY | 2024-11-15 13:35 | XMS_ITS | Encounter Summary ---
Author Organization [facility] Address [address] [place] [address] Care Team Providers Care Port Patrol Officer Name Role Phone Nemo Luu MD Primary Care Provider Encounter Details Date Type Department Care Team (Late st Contact Info) Description 08/20/2024 Lab Requisition [facility] - DermPath Lab [address] [place] [phone] Carroll Jamison MD [employer] [place], [place] [phone] Social History Tobacco Use Types Packs/Day Years [...] Comments DERMATOPATHOLOGY Routine 08/17/2024 12:0 0 AM BIAS CUTTER documented in this encounter Results * DERMATOPATHOLOGY (08/17/2024 12:00 AM BIAS CUTTER) Case Report Dermatopathology Report Case: [id number] Authorizing Provider: Carroll Jaimson MD Collected: 08/17/2024 12:00 AM Ordering Location: [facility] - Received: 08/20/2024 02:20 PM DermPath Lab Pathologist: Fifi Harley MD Specimen: Skin, right posterior base of scalp @ hairline 4 3:16 PM BIAS CUTTER DERMATOPATHOLOGY LABORATORY Final Diagnosis Specimen A. SKIN, right posterior base of scalp @ hairline: RUPTURED EPIDERMOID CYST (L72.0) PRESENT AT MARGIN 4 3:16 PM BIAS CUTTER DERMATOPATHOLOGY LABORATORY Clinical History R/O BCC vs Cyst Please check margins 3:16 PM [facility] DERMATOPATHOLOGY LABORATORY Gross Description Specimen A: Received is one formalin filled container labeled with the patients name and designated right posterior base of scalp @ hairline. The specimen consists of a shave removal measuring 6x5x2 mm. Jar 0. 3:16 PM [facility] DERMATOPATHOLOGY LABORATORY Microscopic Description Specimen A. SKIN, right posterior base of scalp @ hairline: Within the dermis, there is an infiltrate composed of lymphocytes and histiocytes, including multinucleated type giant cells. Some histiocytes contain flakes of material consistent with keratin. This lesion is present at the margin of the specimen. 3:16 PM [facility] DERMATOPATHOLOGY LABORATORY Disclaimer An external and internal positive and negative controls are appropriate for the histochemical, immunohistochemical and immunofluorescence stain(s) in this case (if any), except where stated explicitly. The performance characteristics of the stain(s) cited in this report were developed and its performance characteristic determined by the Dermatopathology Laboratory at [facility], directed by Dr. Charlette Arteaga. These tests need not be, and therefore are not, approved by the [place] Food and Drug Administration. The tests are used for clinical purposes. Billing Codes Specimen Charges Stain Charges 24296 1 3:16 PM [facility] DERMATOPATHOLOGY LABORATORY Embedded Images 3:16 PM [facility] DERMATOPATHOLOGY LABORATORY Pathology/Cytolog y TISSUE SPECIMEN FROM SKIN / Unknown 08/17/2024 08/20/2024 2:20 PM BIAS CUTTER Carroll Jamison MD LAB - PATHOLOGY/CYTO LOGY ORDERABLES DERMATOPATHOLOGY LABORATORY [facility] - Department of Dermatology [facility] Medicine [address] [place] [address], [address] [phone] documented in this encounter Visit Diagnoses Not on filedocumented in this encounter Care Teams Port Patrol Officer Relationship Specialty Start Date End Date Nemo Luu MD [address] [place] [address] [address] [place] [phone] PCP - General 02/21/15 documented as of this encounter
== END 2024-11-15 13:25 | disposition home or self-care (01) ==
LOC: ANHGOSHLAB 13:25
PROVIDERS: PCP Internal Medicine; Visit Provider Clinical Nurse Specialist
DX: N39.0 Urinary tract infection, site not specified (principal)
CPT/HCPCS: 87077; 87086; 87186

== ENCOUNTER 2024-11-25 18:58 | Emergency (ER) | payer MEDICARE, SELFPAY ==
--- NOTE | 2024-11-25 19:02 | ED_ITS ---
HPI - URI/Sore Throat General Chief Complaint: Upper Respiratory Infection Stated Complaint: Congestion Time Seen by Provider: 11/25/24 19:30 Source: patient and RN notes reviewed Mode of arrival: ambulatory Limitations: no limitations History of Present Illness HPI Narrative: 79-year-old female presents with concern for 2 day history of cough, chest congestion, headache, sinus congestion, fatigue and nausea. She has taking Mayi-Sultan. MD elicited complaint: cough and sore throat Related Data Home Medications ?Medication ?Instructions ?Recorded ?Confirmed ?Last Taken ?Type bimatoprost 0.01 % eye drops 1 drp EACH EYE QPM 08/11/23 11/15/24 Unknown History (Jose) famotidine 40 mg tablet 40 mg PO QHS 08/11/23 11/15/24 Unknown History losartan 25 mg tablet 25 mg PO DAILY 08/11/23 11/15/24 Unknown History pravastatin 10 mg tablet 10 mg PO DAILY 08/11/23 11/15/24 Unknown History hyoscyamine sulfate 0.125 mg tablet 0.125 mg PO DAILY PRN 11/08/24 11/15/24 Unknown History tolterodine 4 mg capsule,extended mg PO 11/25/24 Unknown History release 24 hr Allergies Allergy/AdvReac Type Severity Reaction Status Date / Time alprazolam (From Xanax) Allergy Intermediate Feet Edema Verified 11/25/24 19:04 effexor Allergy Intermediate Unknown Uncoded 11/25/24 19:04 naproxin Allergy Intermediate Unknown Uncoded 11/25/24 19:04 Review of Systems Review of Systems: CONSTITUTIONAL: Reports malaise, fever. EYES: Denies visual changes, redness, or discharge. ENT: Reports rhinorrhea, congestion CARDIOVASCULAR: Denies chest pain, palpitations, or edema. RESPIRATORY: Reports cough. Denies dyspnea. GASTROINTESTINAL: Denies abdominal pain, nausea, vomiting, diarrhea SKIN: Denies rash or itching. MUSCULOSKELETAL: Reports myalgia. NEUROLOGIC: Reports headache. All systems reviewed & are unremarkable except as noted in HPI and below PMFSH Past Medical History Medical History Trigger finger Depression GERD (gastroesophageal reflux disease) Overactive bladder Kidney disorder Hyperlipidemia Hypertension Surgical History Surgical History H/O breast biopsy History of carpal tunnel release H/O: hysterectomy (~1993) H/O section (~1975) Family History Family History Father Diabetes mellitus Heart disease Mother Heart disease Social History Social History Social History: Caffeine-coffee/tea/soda Smoking status: Never smoker Alcohol intake: never Substance use: never Substance use type: does not use Lack of Transportation: No Lack of Food: Never True Current Housing: I Have Housing Concerned About Future Housing: No Difficulty Paying Gas/Electric Bills: No Difficulty Paying for Meds: No Currently Unemployed: No Education: Bachelor's Degree Difficulty w/ Childcare or Family Care: No Living arrangements: alone Gender identity (if verbalized by the patient): Female Agree to blood products: Yes Comments At time of signature, agree with nursing past medical, surgical, social and family history. There is no relevant family history pertinent to the presenting complaint Exam Narrative: GENERAL: Nontoxic-appearing, well-nourished, and in no acute distress. HEAD: Normocephalic EYES: PERRLA, conjunctivae clear ENT: Nares clear, clear discharge. Mucous membranes moist. TM pearly kennedy with sharp light reflex bilaterally; no tragal tenderness. Oropharynx not erythematous without lesions. Tonsils not enlarged and without exudate, no drooling, no hoarseness, no trismus, uvula midline. NECK: Supple. No lymphadenopathy CHEST: Clear to auscultation, breath sounds equal. No wheezing, rhonchi, rales, or stridor. No respiratory distress, speaks in full sentences. HEART: Regular rate and rhythm. No murmur heard. SKIN: Warm, dry, no rash. NEURO: Alert and oriented x3. PSYCH: Normal mood and affect Course Course Emergency Course: Patient is aware of diagnosis, understands and agrees to treatment plan. Anticipatory guidance given. Patient agrees to follow-up as directed and is aware of reasons to seek care at the emergency department. Portions of this record may have been created with voice recognition software Level of Care: Express Care Visit Vital Signs Vital signs: Vital Signs Temperature 100.3 F H 11/25/24 19:14 Pulse Rate 84 11/25/24 19:14 Respiratory Rate 16 11/25/24 19:14 Blood Pressure 139/74 11/25/24 19:14 Pulse Oximetry 98 11/25/24 19:14 Oxygen Delivery Room Air 11/25/24 19:14 Temperature 100.3 F H 11/25/24 19:14 Pulse Rate 84 11/25/24 19:20 Respiratory Rate 16 11/25/24 19:20 Blood Pressure 139/74 11/25/24 19:14 Pulse Oximetry 98 11/25/24 19:20 Oxygen Delivery Room Air 11/25/24 19:14 Reviewed. MDM - URI/Sore Throat MDM Narrative Medical decision making narrative: Differential diagnosis considered: Jane virus, strep pharyngitis, allergic rhinitis, upper respiratory tract infection, sinusitis, rhinosinusitis, nasopharyngitis. viral pharyngitis, otitis media, otitis externa, pneumonia, bronchitis, viral cough syndrome, viral syndrome, and influenza. Exam findings show no acute concerns or changes; patient is non-toxic appearing and is in no distress. Patient is appropriate for outpatient treatment and follow-up. Lab Data Attestation: I reviewed the patient's lab results. Critical Care Time Critical Care Time Critical Care Time: No Discharge Plan Discharge Clinical Impression: Influenza A Patient Disposition: Home, Self-Care Condition: Stable Instructions: Influenza (ED) Additional Instructions: -Take strict precautions to prevent the spread of your virus. Be diligent about covering your cough (even when you are alone) and washing your hands frequently. -You may contagious until you have been symptom and/or fever free for 24 hours without fever reducing medicine -Alternate Ibuprofen and Tylenol for pain and fever relief (per package directions) -Drink plenty of fluid - drink fluid with electrolytes such as Gatorade or other oral re-hydration solution. Avoid caffeine, which can make dehydration worse. -Get plenty of rest to help your body heal. -Use a cool mist humidifier for chest and nasal congestion. -Eat RAW honey or use cough drops to ease throat discomfort -Do not smoke or expose children to secondhand smoke -Wash your hands frequently. -Please follow-up with your primary care doctor in the next 1-2 days if your symptoms do not improve. -If you have any worsening of symptoms or any other concerns please go to the ED immediately. -Please take medications as prescribed and continue taking your home medications as usual. Patient Language: Syriac Prescriptions: New pseudoephedrine HCl [12 Hour Decongestant] 120 mg tablet extended release 120 mg PO Q12H PRN (Reason: nasal congestion) Qty: 20 0RF promethazine-DM 6.25-15 mg/5 mL syrup 5 ml PO Q4-6H PRN (Reason: cough) Qty: 120 0RF No Action tolterodine 4 mg capsule,extended release 24hr PO famotidine 40 mg tablet 40 mg PO QHS pravastatin 10 mg tablet 10 mg PO DAILY losartan 25 mg tablet 25 mg PO DAILY Lumigan 0.01 % drops 1 drp EACH EYE QPM escitalopram oxalate 10 mg tablet 10 mg PO DAILY Qty: 90 0RF hyoscyamine sulfate 0.125 mg tablet 0.125 mg PO DAILY PRN polyethylene glycol 3350 17 gram/dose powder See Rx Instructions .ROUTE .COMPLEX Qty: 510 4RF Dose Instruction: MIX 1 CAPFUL IN 4-8 OZ OF LIQUID ONCE DAILY NEEDED FOR CONSTIPATION Rx Instructions: MIX 1 CAPFUL IN 4-8 OZ OF LIQUID ONCE DAILY NEEDED FOR CONSTIPATION azelastine 137 mcg (0.1 %) spray,non-aerosol 1 - 2 spray intranasal QHS Qty: 90 0RF Rx Instructions: administer into each nostril. Aim back/up/out mirabegron 50 mg tablet extended release 24 hr See Rx Instructions .ROUTE .COMPLEX Qty: 90 2RF Dose Instruction: TAKE 1 TABLET BY MOUTH EVERY DAY Rx Instructions: TAKE 1 TABLET BY MOUTH EVERY DAY Follow-up/Referrals: Juan Carlos Teague DO [Primary Care Provider] - Time of Disposition: 19:39
[2024-11-25 19:14] VITALS: BP 139/74; PULSE 84; RESP 16; TEMP 37.9; O2SAT 98
[2024-11-25 19:20] VITALS: PULSE 84; RESP 16; O2SAT 98
[2024-11-26 13:36] LABS: EDCOVIDSCREEN Negative (Negative); EDINFLUASCREEN Positive (Negative); EDINFLUBSCREEN Negative (Negative)
== END 2024-11-25 19:49 | disposition home or self-care (01) ==
PROVIDERS: Emergency Provider Nurse Practitioner; PCP Internal Medicine
DX: J10.1 Influenza due to other identified influenza virus with other respiratory manifestations (principal); Z20.822 Contact with and (suspected) exposure to COVID-19; I10 Essential (primary) hypertension; E78.5 Hyperlipidemia, unspecified; K21.9 Gastro-esophageal reflux disease without esophagitis; N32.81 Overactive bladder; F32.A Depression, unspecified
CPT/HCPCS: 87426; 87804; 99213; G0463

== ENCOUNTER 2024-12-10 13:54 | Outpatient (CLI) | payer MEDICARE, SELFPAY ==
[2024-12-10 19:58] LABS: Add Urine Microscopic? YES; Appearance Urine Clear (Clear); Bilirubin Urine Negative (Negative); Blood Urine Negative (Negative); Color Urine Dark Yellow (Yellow); Glucose Urine UA Negative (Negative); Ketones Urine Negative (Negative); Leukocyte Esterase Ur Negative LEU/UL (Negative); Nitrate Urine Negative (Negative); Protein Urine Negative (Negative); Specific Grav Ur 1.011 (1.001-1.035); Urobilinogen Urine 0.2 mg/dL (<2.0)
== END 2024-12-10 13:55 | disposition home or self-care (01) ==
LOC: ANHGOSHLAB 13:56
PROVIDERS: PCP Internal Medicine; Visit Provider Clinical Nurse Specialist
DX: R39.9 Unspecified symptoms and signs involving the genitourinary system (principal)
CPT/HCPCS: 81001

== ENCOUNTER 2025-02-18 14:59 | Outpatient (CLI) | payer MEDICARE, SELFPAY ==
--- OUTSIDE RECORDS SUMMARY | 2025-02-18 15:04 | XMS_ITS | Clinical Summary ---
Author Organization [facility] Address [address] [place] [id number] Phone Care Team Providers Care Wax Cutter Name Role Phone Deepthi Benites MD Primary Care Provider [phone] Allergies No known active allergies Medications B Dquxfbx-Qfhcnt-FT (SUPER B-50 B COMPLEX) capsule 11/22/19 13 Active citalopram (CeleXA) 20 MG tablet 1 tablet (20 mg) orally daily 0 09/22/20 16 Active bimatoprost (LUMIGAN) 0.01 % ophthalmic drops 11/22/19 13 Active L-Lysine 1000 MG tablet 11/22/19 13 Active calcium citrate (CALCITRATE) 950 MG tablet 1 bid 11/22/19 13 Active Multiple Vitamin (MULTIVITAMIN) capsule 11/22/19 13 Active pravastatin (PRAVACHOL) 10 MG tablet 1 daily 12 10/11/19 18 Active hyoscyamine (ANASPAZ) 0.125 MG disintegrating tablet 11/22/19 13 Active omega-3 (FISH OIL) 1000 MG capsule 11/22/19 13 Active losartan (COZAAR) 25 MG tablet 1 tab/cap qday 3 02/21/20 14 Active tolterodine LA (DETROL LA) 4 MG 24 hr capsule 1 capsule (4 mg) orally daily 0 09/22/20 16 Active FLUZONE HIGH-DOSE 0.5 ML suspension prefilled syringe ADM 0.5ML IM UTD 0 07/30/20 19 Active HYDROcodone-acetam inophen (NORCO) 5-325 MG per tablet hydrocodone 5 mg-acetaminophe n 325 mg tablet Active fluticasone (FLONASE) 50 MCG/ACT nasal spray fluticasone propionate 50 mcg/actuation nasal spray,suspensio n Active Active Problems Problem Noted Date Diagnosed Date Vitamin D deficiency 09/08/2019 Hyperlipidemia 10/23/2014 Chronic kidney disease, stage 3 (moderate) 11/20 Pain in joint 11/20/2012 Immunizations Immunization Administration Dates Next Due Influenza Split High [...] drink = 0.6 oz pur e alcohol) Comments Unknown Sex and Gender Information Value Date Recorded Sex Assigned at Not on file Legal Sex Female 8:21 AM MST Gender Identity Not on file Sexual Orientation Not on file Last Filed Vital Signs Vital Sign Reading Time Taken Comments Blood Pressure 128/70 09/12/2019 1:05 PM PARAPROFESSIONAL INTERPRETER Pulse 84 09/12/2019 1:05 PM PARAPROFESSIONAL INTERPRETER Temperature 35.7 C (96.3 F) 09/12/2019 1:05 PM PARAPROFESSIONAL INTERPRETER Respiratory Rate 14 11/20/2012 12:01 AM PARAPROFESSIONAL INTERPRETER Oxygen Saturation - - Inhaled Oxygen Concentration - - Weight 65.3 kg (144 lb) 09/12/2019 1:05 PM PARAPROFESSIONAL INTERPRETER Height 154.9 cm (5' 1 ) 09/12/2019 1:05 PM PARAPROFESSIONAL INTERPRETER Body Mass Index 27.21 09/12/2019 1:05 PM PARAPROFESSIONAL INTERPRETER Plan of Treatment Health Maintenance Due Date Last Done Comments Influenza Vaccine (Season Ended) 2025 07/18/20 15, 07/23/2014 Pneumococcal PPSV23/PCV13 65 + Years / Low and Medium Risk Completed 12/13/2016, 07/25/2012, 07/10/2006, Additional history exists Insurance [employer] MEDICARE Care Teams Wax Cutter Relationship Specialty Start Date End Date Deephti Benites MD [address] [place] [id number] PCP - General Internal Medicine 09/12/19
--- OUTSIDE RECORDS SUMMARY | 2025-02-18 15:05 | XMS_ITS | Clinical Summary ---
Author Organization [facility] Address [address] [place] [address] Care Team Providers Care Client Solutions Specialist Name Role Phone Nemo Luu MD Primary Care Provider Source Comments [facility],non-owned Affiliates and Associated Physician Practices is amultiple site organization consisting of ambulatory clinics and hospital sitesin [place], [place], [place] and [place]. This disclosure is being madepursuant to the Care Everywhere program and may not contain all information available regarding this patient. Last updated 18.[facility] Social History Tobacco Use Types Packs/Day Years Used Date Smoking Tobacco: Never Assessed Comments Unknown Sex and Gender Information Value Date Recorded Sex Assigned at Not on file Legal Sex Female 6:18 PM SPORTS RECRUITER Gender Identity Not on file Sexual Orientation [...] VACCINE ( - 2023-2 5 season) 2024 DEPRESSION SCREENING 10/10/2024 MEDICARE AWV CALENDAR YEAR 2024 INFLUENZA VACCINE (Season Ended) 2025 HEPATITIS B VACCINE Aged Out No longe r eligible based on patient's age to complete this topic HIB VACCINE Aged Out No longer eligi ble based on patient's age to complete this topic HPV VACCINE Aged Out No longer eligi ble based on patient's age to complete this topic MENINGOCOCCAL (Group B) VACC INE SHARED DECISION-MAKING Aged Out No longer eligibl e based on patient's age to complete this topic MENINGOCOCCAL GROUPS A/C/Y/W VACCINE Aged Out No longer eligible b ased on patient's age to complete this topic Insurance [employer] MEDICARE ADV Care Teams Client Solutions Specialist Relationship Specialty Start Date End Date Nemo Luu MD [address] [place] [phone] PCP - General 02/21/15
--- OUTSIDE RECORDS SUMMARY | 2025-02-18 15:05 | XMS_ITS | Data Portability ---
Author Organization [facility] Morris PETERSON_Bernarda_ Address [address] [place] [address] Assessment No assessment recorded. Plan of Treatment Reminders Order Date Submit Date Provider Last Modified By Organization Details Last Modified Time Details Appointments None recorded. Lab rapid strep group A, throat 2017 018 [email or web address] In-Office Order, Internal Use Only DO Not Attach Compendium DO Not Attach Compendium, Do Not Delete/merge, [id number] 13:50:23 Referral None recorded. Procedures pulse oximetry (PROC) 2017 018 [email or web address] In-Office Order, Internal Use Only DO Not Attach Compendium DO Not Attach Compendium, Do Not Delete/merge, [id number] 13:50:23 Surgeries None recorded. Imaging None recorded. Medication Orders fluticason e propionate 50 mcg/actuat ion nasal spray,susp ension 2017 018 INTERFACE [id number], [address] [place], [address], 8 14:00:58 azithromyc in 250 mg tablet 2017 018 INTERFACE [id number], [address] [place], [address], 8 14:08:12 Patient TargetsNo targets recorded. Patient InstructionsNo instructions recorded. Reason for Referral None Reported. Results Created Date Observation Date Name Description Value Unit Range Abnormal Flag Note LastModifiedBy Organization Detail LastModifiedTime 01/22/20 18 2018 rapid strep group A, throa t Strep negati ve Not Available In-Office Order Internal Use Only DO Not Attach Compendium DO Not Attach Compendium, Do Not Delete/merge, [id number] 2018 13:38:31 01/22/20 18 2018 pulse oxime try (PROC ) pulse oximetry 97% room air at rest Not Available In-Office Order Internal Use Only DO Not Attach Compendium DO Not Attach Compendium, Do Not Delete/merge, [id number] 2018 13:38:04 Result Notes None recorded. Problems Name Problem SNOMED Code Status Onset Date Resolution Date Notes Provider Name and Address Organization Details Recorded Time Kidney disease 50716261 Active 018 Mandy haque [place] [facility] 2018 13:28:52 Problem Notes None recorded. Procedures Surgical History Date Name Laterality Status Provider Name and Address Organization Details Recorded Time Carpal tunnel surgery completed Mandy Bellamy [place] [facility] 2018 13:57:29 Breast Biopsy completed Mandy Bellamy [place] [facility] 2018 13:57:37 delivery completed Mandy Bellamy [place] [facility] 2018 13:57:57 Hysterectomy completed [place] [facility] 2018 13:58:36 Imaging [...] Updated DateTime 8 154.94 cm 27 kg/m2 04122.9 9 g 79 /min 99.1 [degF] 97 % 97 % min 114 mm[Hg] 68 mm[Hg] Mandy Bellamy [place] [facility] 8 13:27:32 Social History Question Answer Notes LastModified by Organizat ion Details LastModified Time Tobacco Smoking Status Never Smoker Mandy Bellamy [place], [facility] 2018 13:56:23 Do You Have An Advance Directive? No Information not available 2018 What Is Your Level Of Caffeine Consumption? Moderate [email or web address] Information not available 2018 How Much Tobacco Do You Chew? None [email or web address] Information not available 2018 What Type Of Diet Are You Following? REGULAR [email or web address] Information not available 2018 Which Illicit Or Recreational Drugs Have You Used? None [email or web address] Information not available 2018 Have You Directly Handled Bats, Rodents, Or Primates From Ebola Endemic Areas? No [email or web address] Information not available 2018 Have You Had Contact With Blood, Bodily Fluids, Or Human Remains Of A Patient Known To Have Or Suspected To Have Ebola Virus Disease? No [email or web address] Information not available 2018 Do You Reside In Or Have You Traveled To An Area Where Ebola Virus Transmission Is Active? 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 Alone [email or web address] Information not available 2018 Marital Status [email or web address] Informatio n not available 2018 What Was The Date Of Your Most Recent Tobacco Screening? 2018 Information not available 05/03/2019 How Much Tobacco Do You Smoke? No [email or web address] Information not available 2018 How Many Years Have You Smoked Tobacco? 0 [email or web address] Information not available 2018 Work Related Injury? No [email or web address] Information not available 2018 Sex: Unknown Functional Status Question Answer Note LastModified by Organization D etails LastModified Time What is your level of alcohol consumption? None [email or web address] Information not available 2018 What is your occupation? Retired [email or web address] Information not available 2018 What is your exercise level? Moderate Information not available 2018 Mental Status None [...] SNOMED-CT Code Diagnosis ICD10 Code Diagnosis Note [id number] Mari Angela PA-C [facility] [place] [address] [facility] [place] [address] 2018 13:16:28 2018 14:07:00 Acute pharyngitis 979191496 J02.9 Complete antibiotic . Return to clinic should s/s worsen or not resolve. Advised to use OTC tylenol for sore throat and saline gargles. Seasonal a llergic rhinitis [id number] J30.2 Use medication as directed. Health Concerns Section Related Observation LastModified by Organization Detai ls LastModified Time None Recorded Concern Status LastModified by Organization Details LastModified Time None Recorded Advance Directives Directive N: Payers Insurance Date Sequence Insurance Name Policy Number Policy Welsh Covered Member ID Welsh Member ID Guarantor Name 04/06/2018 1 [facility] [id number] Meme Temple [id number] Meme Temple Notes Date Note Type Note [...] sore throat x 1 day. Mari Angela [facility], [facility] 2018 14:23:21 OBGyn Episode No OBEpisode recorded.
--- OUTSIDE RECORDS SUMMARY | 2025-02-18 15:05 | XMS_ITS | Data Portability ---
Author Organization [place] [employer] Main Office Address [address] [place] [address] Care Team Providers Care Rehabilitation Services Counselor Name Role Phone FADUMO BENITES Primary Care Provider FADUMO BENITES Referring Provider [phone] Assessment No assessment recorded. Plan of Treatment Reminders Order Date Submit Date Provider Last Modified By Organization Details Last Modified Time Details Appointments Procedur e 60 2024 07:00A M Christy Hughes MD Not available Not available Not available Lab urinalys is complete , reflex culture 2023 024 [email or web address] Not available 01/10/2024 12:40:30 TSH, serum or plasma 2023 024 Not available 01/04/2024 17:28:23 CBC w/ auto diff 2023 024 Not available 01/04/2024 17:27:01 BMP, serum or plasma 2023 024 Not available 01/04/2024 17:27:45 lipid panel, serum 2023 024 Not available 01/04/2024 17:27:18 hepatic function panel, serum 2023 024 Not available 01/04/2024 17:27:32 vitamin D, 25-hydro xy, total, serum 2023 024 Not available 01/04/2024 17:28:35 vitamin B12, serum 2023 024 Not available 01/04/2024 17:28:47 folate, serum 2023 024 Not available 01/04/2024 17:28:58 ferritin , serum or plasma 2023 024 Not available 01/04/2024 17:27:57 iron + total iron-bin ding capacity (TIBC), serum 2023 024 Not available 01/04/2024 17:28:09 Referral None recorded . Procedures colonosc opy procedur e (PROC) [address] [facility] (Pre-Screen), [address] [place] [address], [address], 02/14/2025 08:00:00 Surgeries None recorded . Imaging None recorded . Medication Orders tolterod ine ER 4 mg capsule, extended release 24 hr [address] [facility], [facility], [place], [address], 01/30/2025 12:39:27 losartan 25 mg tablet 2023 024 [facility], [facility], [place], [address], 01/04/2024 11:10:13 bupropio n HCl XL 150 mg 24 hr tablet, extended release 2023 024 [facility], [facility], [place], [address], 07/31/2024 16:09:41 pravasta tin 10 mg tablet 2023 024 [facility], [facility], [place], [address], 01/04/2024 11:10:13 famotidi ne 20 mg tablet 2023 024 [facility], [facility], [place], [address], 01/04/2024 11:10:13 Patient TargetsNo targets recorded. Patient Instructions Encounter Date Encounter Id Patient Instructions Last Modified By Organization Details Last Modified Time 01/30/2025 [id number] SOTELO TAB Not available 13:06:39 PT WITH DIARRHEA . DDX : MICROSCOPIC VS COLLAGENOUS COLITIS / POLYP/ CA . RECOMMEND A COLONOSCOPY . . Risks benefits and complications were explained to the pt. ( BLEEDING PERFORATION , INFECTION , ). PT VERBALIZES UNDERSTANDING AND IS WILLING TO PROCEDE . Risks benefits and complications were explained to the pt. ( BLEEDING PERFORATION , INFECTION , ). PT VERBALIZES UNDERSTANDING AND IS WILLING TO PROCEDE . [email or web address] Not available 01/30/2025 13:06:50 Reason for Referral None Reported. Results Created Date Observation Date Name Description Value Unit Range Abnormal Flag Note LastModifiedBy Organization Detail LastModifiedTime 12/12/19 24 12/12/2023 URINA LYSIS COMPL ETE/I RIS W/RFX color YELLOW Not Available [facility] (Lab) [address] [place], [address], 12/12/2023 20:13:50 12/12/19 24 12/12/2023 URINA LYSIS COMPL ETE/I RIS W/RFX appear EXTRA TURBID abnormal Not Available [facility] (Lab) [address] [place], [address], 12/12/2023 20:13:50 12/12/19 24 12/12/2023 URINA LYSIS COMPL ETE/I RIS W/RFX specific gravity 1.014 1.001- 1.030 Not Available [facility] (Lab) [address] [place], [address], 12/12/2023 20:13:50 12/12/19 24 12/12/2023 URINA LYSIS COMPL ETE/I RIS W/RFX pH 6.0 pH_un its 5.0-9. 0 Not Available [facility] (Lab) [address] [place], [address], 12/12/2023 20:13:50 12/12/19 24 12/12/2023 URINA LYSIS COMPL ETE/I RIS W/RFX leukocytes >/=500 patrick/u L negati ve- abnormal Not Available [facility] (Lab) [address] [place], [address], 12/12/2023 20:13:50 12/12/19 24 12/12/2023 URINA LYSIS COMPL ETE/I RIS W/RFX nitrite NEGATI VE negati ve- Not Available [facility] (Lab) [address] [place], [address], 12/12/2023 20:13:50 12/12/19 24 12/12/2023 URINA LYSIS COMPL ETE/I RIS W/RFX protein 30 mg/dL negati ve- abnormal Not Available [facility] (Lab) [address] [place], [address], 12/12/2023 20:13:50 12/12/19 24 12/12/2023 URINA LYSIS COMPL ETE/I RIS W/RFX glucose NORMAL mg/dL normal - Not Available [facility] (Lab) [address] [place], [address], 12/12/2023 20:13:50 12/12/19 24 12/12/2023 URINA LYSIS COMPL ETE/I RIS W/RFX ketones NEGATI VE mg/dL negati ve- Not Available [facility] (Lab) [address] [place], [address], 12/12/2023 20:13:50 12/12/19 24 12/12/2023 URINA LYSIS COMPL ETE/I RIS W/RFX urobilinogen NORMAL mg/dL normal - Not Available [facility] (Lab) [address] [place], [address], 12/12/2023 20:13:50 12/12/19 24 12/12/2023 URINA LYSIS COMPL ETE/I RIS W/RFX bilirubin NEGATI VE mg/dL negati ve- Not Available [facility] (Lab) [address] [place], [address], 12/12/2023 20:13:50 12/12/19 24 12/12/2023 URINA LYSIS COMPL ETE/I RIS W/RFX blood >/=1.0 mg/dL negati ve- abnormal Not Available [facility] (Lab) [address] [place], [address], 12/12/2023 20:13:50 12/12/19 24 12/12/2023 URINA LYSIS COMPL ETE/I RIS W/RFX white blood cells PACKED /i??h pfi?? 0-8 abnormal Not Available [facility] (Lab) [address] [place], [address], 12/12/2023 20:13:50 12/12/19 24 12/12/2023 URINA LYSIS COMPL ETE/I RIS W/RFX white blood cell clumps PACKED FIELD /i??h pfi?? none seen- abnormal Not Available [facility] (Lab) [address] [place], [address], 12/12/2023 20:13:50 12/12/19 24 12/12/2023 URINA LYSIS COMPL ETE/I RIS W/RFX red blood cells >100 /i??h pfi?? 0-4 abnormal Not Available [facility] (Lab) [address] [place], [address], 12/12/2023 20:13:50 12/12/19 24 12/12/2023 URINA LYSIS COMPL ETE/I RIS W/RFX bacteria NONE Not Available [facility] (Lab) [address] [place], [address], 12/12/2023 20:13:50 12/12/19 24 12/12/2023 URINA LYSIS COMPL ETE/I RIS W/RFX mucous OCCASI ONAL /i??l pfi?? abnormal Not Available [facility] (Lab) [address] [place], [address], 12/12/2023 20:13:50 12/12/19 24 12/12/2023 URINA LYSIS COMPL ETE/I RIS W/RFX squamous epithelial PACKED FIELD /i??l pfi?? abnormal Not Available [facility] (Lab) [address] [place], [address], 12/12/2023 20:13:50 12/12/19 24 12/12/2023 CULTU RE URINE urc ===== ===== ===== ===== ===== ===== ===== ===== ===== ===== ===== ===== ===== ===== ===== ===== ===== ===== ===== ===== ===== ===== ===== ===== Speci men NO.: [id number] Exam Statu s: Final Proce dure: [...] Genta micin <=2 [place] [id number] Oxida se React ion N Amp/S ulbac [...] furan toin <=32 S S Not Available [facility] (Lab) [address] [place], [address], 12/14/2023 07:43:23 12/12/19 24 12/12/2023 urina lysis , dipst ick Leukocytes (reference range: negative patrick/ l) Large Not Available [address], [address], 12/12/2023 10:35:32 12/12/19 24 12/12/2023 urina lysis , dipst ick Nitrite (reference rage: negative mg/dl) negati ve Not Available [address], [place], [address], 12/12/2023 10:35:32 12/12/19 24 12/12/2023 urina lysis , dipst ick Urobilinogen (reference range: 0.2-1 mg/dl) 0.2 Not Available [facility] [address], [place], [address], 12/12/2023 10:35:32 12/12/19 24 12/12/2023 urina lysis , dipst ick Protein (reference range: negative mg/dl) Small Not Available [facility] [address], [place], [address], 12/12/2023 10:35:32 12/12/19 24 12/12/2023 urina lysis , dipst ick pH (reference range: 5-7) 6.5 Not Available [facility] [address], [place], [address], 12/12/2023 10:35:32 12/12/19 24 12/12/2023 urina lysis , dipst ick Blood (reference range: negative Luigi/ l) Large Not Available [facility] [address], [place], [address], 12/12/2023 10:35:32 12/12/19 24 12/12/2023 urina lysis , dipst ick Specific [place] (reference range: 1.005-1.030) 1.020 Not Available s _[address], [place], [address], 12/12/2023 10:35:32 12/12/19 24 12/12/2023 urina lysis , dipst ick Ketone (reference range: negative mg/dl) Negati ve Not Available [facility] [address], [place], [address], 12/12/2023 10:35:32 12/12/19 24 12/12/2023 urina lysis , dipst ick Bilirubin (reference range: negative mg/dl) Negati ve Not Available [address], [place], [address], 12/12/2023 10:35:32 12/12/19 24 12/12/2023 urina lysis , dipst ick Glucose (reference range: negative mg/dl) Negati ve Not Available [address], [place], [address], 12/12/2023 10:35:32 12/12/19 24 12/12/2023 urina lysis , dipst ick Appearance Cloudy Not Available [address], [place], [address], 12/12/2023 10:35:32 12/12/19 24 12/12/2023 urina lysis , dipst ick Color Yellow Not Available [address], [place], [address], 12/12/2023 10:35:32 12/22/19 24 12/22/2023 URINA LYSIS COMPL ETE/I RIS W/RFX color YELLOW Not Available [facility] (Lab) [address] [place], [address], 12/22/2023 21:08:51 12/22/19 24 12/22/2023 URINA LYSIS COMPL ETE/I RIS W/RFX appear CLEAR Not Available [facility] (Lab) [address] [place], [address], 12/22/2023 21:08:51 12/22/19 24 12/22/2023 URINA LYSIS COMPL ETE/I RIS W/RFX specific gravity 1.009 1.001- 1.030 Not Available [facility] (Lab) [address] [place], [address], 12/22/2023 21:08:51 12/22/19 24 12/22/2023 URINA LYSIS COMPL ETE/I RIS W/RFX pH 6.5 pH_un its 5.0-9. 0 Not Available [facility] (Lab) [address] [place], [address], 12/22/2023 21:08:51 12/22/19 24 12/22/2023 URINA LYSIS COMPL ETE/I RIS W/RFX leukocytes NEGATI VE patrick/u L negati ve- Not Available [facility] (Lab) [address] [place], [address], 12/22/2023 21:08:51 12/22/19 24 12/22/2023 URINA LYSIS COMPL ETE/I RIS W/RFX nitrite NEGATI VE negati ve- Not Available [facility] (Lab) [address] [place], [address], 12/22/2023 21:08:51 12/22/19 24 12/22/2023 URINA LYSIS COMPL ETE/I RIS W/RFX protein NEGATI VE mg/dL negati ve- Not Available [facility] (Lab) [address] [place], [address], 12/22/2023 21:08:51 12/22/19 24 12/22/2023 URINA LYSIS COMPL ETE/I RIS W/RFX glucose NORMAL mg/dL normal - Not Available [facility] (Lab) [address] [place], [address], 12/22/2023 21:08:51 12/22/19 24 12/22/2023 URINA LYSIS COMPL ETE/I RIS W/RFX ketones NEGATI VE mg/dL negati ve- Not Available [facility] (Lab) [address] [place], [address], 12/22/2023 21:08:51 12/22/19 24 12/22/2023 URINA LYSIS COMPL ETE/I RIS W/RFX urobilinogen NORMAL mg/dL normal - Not Available [facility] (Lab) [address] [place], [address], 12/22/2023 21:08:51 12/22/19 24 12/22/2023 URINA LYSIS COMPL ETE/I RIS W/RFX bilirubin NEGATI VE mg/dL negati ve- Not Available [facility] (Lab) [address] [place], [address], 12/22/2023 21:08:51 12/22/19 24 12/22/2023 URINA LYSIS COMPL ETE/I RIS W/RFX blood NEGATI VE mg/dL negati ve- Not Available [facility] (Lab) [address] [place], [address], 12/22/2023 21:08:51 12/22/19 24 12/22/2023 URINA LYSIS COMPL ETE/I RIS W/RFX white blood cells 0-8 /i??h pfi?? 0-8 Not Available [facility] (Lab) [address] [place], [address], 12/22/2023 21:08:51 12/22/19 24 12/22/2023 URINA LYSIS COMPL ETE/I RIS W/RFX red blood cells 0-4 /i??h pfi?? 0-4 Not Available [facility] (Lab) [address] [place], [address], 12/22/2023 21:08:51 12/22/19 24 12/22/2023 URINA LYSIS COMPL ETE/I RIS W/RFX bacteria MODERA TE abnormal Not Available [facility] (Lab) [address] [place], [address], 12/22/2023 21:08:51 12/22/19 24 12/22/2023 URINA LYSIS COMPL ETE/I RIS W/RFX squamous epithelial OCCASI ONAL /i??l pfi?? abnormal Not Available [facility] ([facility]) [address] [facility] [place], [address], 12/22/2023 21:08:51 12/22/19 24 12/22/2023 urina lysis , dipst ick Leukocytes (reference range: negative patrick/ l) Negati ve Not Available [address], [place], [address], 12/22/2023 13:44:25 12/22/19 24 12/22/2023 urina lysis , dipst ick Nitrite (reference rage: negative mg/dl) negati ve Not Available [address], [place], [address], 12/22/2023 13:44:25 12/22/19 24 12/22/2023 urina lysis , dipst ick Urobilinogen (reference range: 0.2-1 mg/dl) 0.2 Not Available [address], [place], [address], 12/22/2023 13:44:25 12/22/19 24 12/22/2023 urina lysis , dipst ick Protein (reference range: negative mg/dl) Negati ve Not Available [address], [place], [address], 12/22/2023 13:44:25 12/22/19 24 12/22/2023 urina lysis , dipst ick pH (reference range: 5-7) 7.0 Not Available [address], [place], [address], 12/22/2023 13:44:25 12/22/19 24 12/22/2023 urina lysis , dipst ick Blood (reference range: negative Luigi/ l) Negati ve Not Available [address], [place], [address], 12/22/2023 13:44:25 12/22/19 24 12/22/2023 urina lysis , dipst ick Specific [place] (reference range: 1.005-1.030) 1.015 Not Available [address], [place], [address], 12/22/2023 13:44:25 12/22/19 24 12/22/2023 urina lysis , dipst ick Ketone (reference range: negative mg/dl) Negati ve Not Available [address], [place], [address], 12/22/2023 13:44:25 12/22/19 24 12/22/2023 urina lysis , dipst ick Bilirubin (reference range: negative mg/dl) Negati ve Not Available [address], [place], [address], 12/22/2023 13:44:25 12/22/19 24 12/22/2023 urina lysis , dipst ick Glucose (reference range: negative mg/dl) Negati ve Not Available [address], [place], [address], 12/22/2023 13:44:25 12/22/19 24 12/22/2023 urina lysis , dipst ick Appearance Clear Not Available [address], [place], [address], 12/22/2023 13:44:25 12/22/19 24 12/22/2023 urina lysis , dipst ick Color Yellow Not Available [facility] [address], [place], [address], 12/22/2023 13:44:25 12/27/19 24 12/27/2023 URINA LYSIS COMPL ETE/I RIS W/RFX color DARK-Y ELLOW Not Available [facility] [address] [place], [address], 12/27/2023 19:20:19 12/27/19 24 12/27/2023 URINA LYSIS COMPL ETE/I RIS W/RFX appear EXTRA TURBID abnormal Not Available [facility] [address] [place], [address], 12/27/2023 19:20:19 12/27/19 24 12/27/2023 URINA LYSIS COMPL ETE/I RIS W/RFX specific gravity 1.015 1.001- 1.030 Not Available [facility] [address] [place], [address], 12/27/2023 19:20:19 12/27/19 24 12/27/2023 URINA LYSIS COMPL ETE/I RIS W/RFX pH 5.5 pH_un its 5.0-9. 0 Not Available [facility] [address] [place], [address], 12/27/2023 19:20:19 12/27/19 24 12/27/2023 URINA LYSIS COMPL ETE/I RIS W/RFX leukocytes >/=500 patrick/u L negati ve- abnormal Not Available [facility] [address] [place], [address], 12/27/2023 19:20:19 12/27/19 24 12/27/2023 URINA LYSIS COMPL ETE/I RIS W/RFX nitrite NEGATI VE negati ve- Not Available [facility] [address] [place], [address], 12/27/2023 19:20:19 12/27/19 24 12/27/2023 URINA LYSIS COMPL ETE/I RIS W/RFX protein 100 mg/dL negati ve- abnormal Not Available [facility] [address] [place], [address], 12/27/2023 19:20:19 12/27/19 24 12/27/2023 URINA LYSIS COMPL ETE/I RIS W/RFX glucose NORMAL mg/dL normal - Not Available [facility] [address] [place], [address], 12/27/2023 19:20:19 12/27/19 24 12/27/2023 URINA LYSIS COMPL ETE/I RIS W/RFX ketones NEGATI VE mg/dL negati ve- Not Available [facility] [address] [place], [address], 12/27/2023 19:20:19 12/27/19 24 12/27/2023 URINA LYSIS COMPL ETE/I RIS W/RFX urobilinogen NORMAL mg/dL normal - Not Available [facility] [address] [place], [address], 12/27/2023 19:20:19 12/27/19 24 12/27/2023 URINA LYSIS COMPL ETE/I RIS W/RFX bilirubin NEGATI VE mg/dL negati ve- Not Available [facility] [address] [place], [address], 12/27/2023 19:20:19 12/27/19 24 12/27/2023 URINA LYSIS COMPL ETE/I RIS W/RFX blood >/=1.0 mg/dL negati ve- abnormal Not Available [facility] [address] [place], [address], 12/27/2023 19:20:19 12/27/19 24 12/27/2023 URINA LYSIS COMPL ETE/I RIS W/RFX white blood cells PACKED /i??h pfi?? 0-8 abnormal Not Available [facility] [address] [place], [address], 12/27/2023 19:20:19 12/27/19 24 12/27/2023 URINA LYSIS COMPL ETE/I RIS W/RFX white blood cell clumps PACKED FIELD /i??h pfi?? none seen- abnormal Not Available [facility] [address] [place], [address], 12/27/2023 19:20:19 12/27/19 24 12/27/2023 URINA LYSIS COMPL ETE/I RIS W/RFX red blood cells >100 /i??h pfi?? 0-4 abnormal Not Available [facility] [address] [place], [address], 12/27/2023 19:20:19 12/27/19 24 12/27/2023 URINA LYSIS COMPL ETE/I RIS W/RFX bacteria MANY abnormal Not Available [facility] [address] [place], [address], 12/27/2023 19:20:19 12/27/19 24 12/27/2023 URINA LYSIS COMPL ETE/I RIS W/RFX squamous epithelial PACKED FIELD /i??l pfi?? abnormal Not Available [facility] [address] [place], [address], 12/27/2023 19:20:19 12/27/19 24 12/27/2023 CULTU RE URINE urc ===== ===== ===== ===== ===== ===== ===== ===== ===== ===== ===== ===== ===== ===== ===== ===== ===== ===== ===== ===== ===== ===== ===== ===== Speci men NO.: [id number] Exam Statu s: Final Proce dure: [...] Genta micin <=2 S [place] [id number] Oxida se React ion N Extra Sensi [...] furan toin <=32 S S Not Available [facility] (Lab) [address], [place], [address], 12/31/2023 08:34:38 12/27/19 24 12/27/2023 urina lysis , dipst ick Leukocytes (reference range: negative patrick/ l) Large Not Available [facility] [address], [place], [address], 12/27/2023 11:58:14 12/27/19 24 12/27/2023 urina lysis , dipst ick Nitrite (reference rage: negative mg/dl) negati ve Not Available s_[address], [place], [address], 12/27/2023 11:58:14 12/27/19 24 12/27/2023 urina lysis , dipst ick Urobilinogen (reference range: 0.2-1 mg/dl) 0.2 Not Available s_[address], [place], [address], 12/27/2023 11:58:14 12/27/19 24 12/27/2023 urina lysis , dipst ick Protein (reference range: negative mg/dl) Large Not Available [address], [place], [address], 12/27/2023 11:58:14 12/27/19 24 12/27/2023 urina lysis , dipst ick pH (reference range: 5-7) 5.5 Not Available s_ [address], [place], [address], 12/27/2023 11:58:14 12/27/19 24 12/27/2023 urina lysis , dipst ick Blood (reference range: negative Luigi/ l) Large Not Available [address], [place], [address], 12/27/2023 11:58:14 12/27/19 24 12/27/2023 urina lysis , dipst ick Specific [place] (reference range: 1.005-1.030) 1.030 Not Available [address], [place], [address], 12/27/2023 11:58:14 12/27/19 24 12/27/2023 urina lysis , dipst ick Ketone (reference range: negative mg/dl) Negati ve Not Available [address], [place], [address], 12/27/2023 11:58:14 12/27/19 24 12/27/2023 urina lysis , dipst ick Bilirubin (reference range: negative mg/dl) Negati ve Not Available [address], [place], [address], 12/27/2023 11:58:14 12/27/1912/27/2023 urina lysis , dipst ick Glucose (reference range: negative mg/dl) Negati ve Not Available [address], [place], [address], 12/27/2023 11:58:14 12/27/1912/27/2023 urina lysis , dipst ick Appearance Cloudy Not Available [address], [place], [address], 12/27/2023 11:58:14 12/27/1912/27/2023 urina lysis , dipst ick Color Yellow Not Available [address], [place], [address], 12/27/2023 11:58:14 01/04/20 24 01/04/2024 CBC/C OMPLE TE BLD COUNT W/DIF F white blood cells 4.7 x10'3 /uL 4.2-10 .8 Not Available [facility] (Lab) [address] [place], [address], 01/04/2024 19:31:32 01/04/20 24 01/04/2024 CBC/C OMPLE TE BLD COUNT W/DIF F red blood cells 4.45 x10'6 /uL 3.80-5 .20 Not Available [facility] (Lab) [address] [place], [address], 01/04/2024 19:31:32 01/04/20 24 01/04/2024 CBC/C OMPLE TE BLD COUNT W/DIF F hemoglobin 13.3 g/dL 12.0-1 5.6 Not Available [facility] ([facility]) [address] [place], [address], 01/04/2024 19:31:32 01/04/20 24 01/04/2024 CBC/C OMPLE TE BLD COUNT W/DIF F hematocrit 39.8 % 35.7-4 5.7 Not Available [facility] ([facility]) [address] [place], [address], 01/04/2024 19:31:32 01/04/20 24 01/04/2024 CBC/C OMPLE TE BLD COUNT W/DIF F mean red cell volume 89.4 fL 82.0-9 9.0 Not Available [facility] (Lab) [address] [place], [address], 01/04/2024 19:31:32 01/04/20 24 01/04/2024 CBC/C OMPLE TE BLD COUNT W/DIF F mean red cell hemoglobin 29.9 pg 27.0-3 3.0 Not Available [facility] ([facility]) [address] [place], [address], 01/04/2024 19:31:32 01/04/20 24 01/04/2024 CBC/C OMPLE TE BLD COUNT W/DIF F mean RBC HGB concentratio n 33.4 g/dL 31.0-3 6.0 Not Available [facility] ([facility]) [address] [place], [address], 01/04/2024 19:31:32 01/04/20 24 01/04/2024 CBC/C OMPLE TE BLD COUNT W/DIF F red cell distribution width 12.9 % 11.8-1 5.5 Not Available [facility] ([facility]) [address] [place], [address], 01/04/2024 19:31:32 01/04/20 24 01/04/2024 CBC/C OMPLE TE BLD COUNT W/DIF F platelets 200 x10'3 /uL 150-40 0 Not Available [facility] (Lab) [address] [place], [address], 01/04/2024 19:31:32 01/04/20 24 01/04/2024 CBC/C OMPLE TE BLD COUNT W/DIF F mean platelet volume 10.1 fL 9.0-12 .4 Not Available [facility] (Lab) [address] [place], [address], 01/04/2024 19:31:32 01/04/20 24 01/04/2024 CBC/C OMPLE TE BLD COUNT W/DIF F neutrophils 63.1 % 39.0-7 2.0 Not Available [facility] (Lab) [address] [place], [address], 01/04/2024 19:31:32 01/04/20 24 01/04/2024 CBC/C OMPLE TE BLD COUNT W/DIF F lymphocytes 22.5 % 16.0-4 7.0 Not Available [facility] (Lab) [address] [place], [address], 01/04/2024 19:31:32 01/04/20 24 01/04/2024 CBC/C OMPLE TE BLD COUNT W/DIF F monocytes 9.4 % 5.0-12 .0 Not Available [facility] (Lab) [address] [place], [address], 01/04/2024 19:31:32 01/04/20 24 01/04/2024 CBC/C OMPLE TE BLD COUNT W/DIF F eosinophils 3.9 % 1.0-7. 0 Not Available [facility] (Lab) [address] [place], [address], 01/04/2024 19:31:32 01/04/20 24 01/04/2024 CBC/C OMPLE TE BLD COUNT W/DIF F basophils 0.9 % 0.0-2. 0 Not Available [facility] (Lab) [address] [place], [address], 01/04/2024 19:31:32 01/04/20 24 01/04/2024 CBC/C OMPLE TE BLD COUNT W/DIF F immature granulocytes 0.2 % 0.00-0 .50 Not Available [facility] (Lab) [address] [place], [address], 01/04/2024 19:31:32 01/04/20 24 01/04/2024 CBC/C OMPLE TE BLD COUNT W/DIF F neutrophils, absolute count 2.95 x10'3 /uL 1.5-8. 0 Not Available [facility] (Lab) [address] [place], [address], 01/04/2024 19:31:32 01/04/20 24 01/04/2024 CBC/C OMPLE TE BLD COUNT W/DIF F lymphocytes, absolute count 1.05 x10'3 /uL 1.07-3 .43 low Not Available [facility] (Lab) [address] [place], [address], 01/04/2024 19:31:32 01/04/20 24 01/04/2024 CBC/C OMPLE TE BLD COUNT W/DIF F monocytes, absolute count 0.44 x10'3 /uL 0.29-0 .99 Not Available [facility] (Lab) [address] [place], [address], 01/04/2024 19:31:32 01/04/20 24 01/04/2024 CBC/C OMPLE TE BLD COUNT W/DIF F eosinophils, absolute count 0.18 x10'3 /uL 0.02-0 .53 Not Available [facility] (Lab) [address] [place], [address], 01/04/2024 19:31:32 01/04/20 24 01/04/2024 CBC/C OMPLE TE BLD COUNT W/DIF F basophils, absolute count 0.04 x10'3 /uL 0.01-0 .08 Not Available [facility] (Lab) [address] [place], [address], 01/04/2024 19:31:32 01/04/20 24 01/04/2024 CBC/C OMPLE TE BLD COUNT W/DIF F immature granulocytes ,absolute 0.01 x10'3 /uL 0.00-0 .05 Not Available [facility] (Lab) [address] [place], [address], 01/04/2024 19:31:32 01/04/20 24 01/04/2024 CBC/C OMPLE TE BLD COUNT W/DIF F nucleated red blood cells 0.0 % -0 Not Available [facility] (Lab) [address] [place], [address], 01/04/2024 19:31:32 01/04/20 24 01/04/2024 CBC/C OMPLE TE BLD COUNT W/DIF F NRBC# 0.00 x10'3 /uL Not Available [facility] (Lab) [address] [place], [address], 01/04/2024 19:31:32 01/04/20 24 01/04/2024 LIPID PANEL cholesterol 190 mg/dL 140-19 9 NIH MANA NSUS RECOM MENDA TION FOR ZANDRA STERO L: ADULT CHILD LOW RISK: <200 <170 BORDE RLINE : <200- 239 ----- HIGH RISK: >240 >200 Not Available [facility] (Lab) [address] [place], [address], 01/04/2024 20:01:55 01/04/20 24 01/04/2024 LIPID PANEL triglyceride s 114 mg/dL 0-150 NIH MANA NSUS REPOR T RECOM MENDA TION FOR TRIGL YCERI ELODIA: ADULT CHILD LOW RISK: <150 ----- BODER LINE: 150-1 99 ----- HIGH RISK: >200 ----- Not Available [facility] (Lab) [address] [place], [address], 01/04/2024 20:01:55 01/04/20 24 01/04/2024 LIPID PANEL HDL cholesterol 91 mg/dL 40- Not Available [facility] (Lab) [address] [place], [address], 01/04/2024 20:01:55 01/04/20 24 01/04/2024 LIPID PANEL LDL cholesterol, calculated 76 mg/dL 0-130 NIH MANA NSUS REPOR T RECOM MENDA TIONS FOR LDL: ADULT CHILD LOW RISK <130 <110 (OPTI MAL LDL) <100 ----- BORDE RLINE : 130-1 59 ----- HIGH RISK: >160 >130 A TRIGL YCERI DE RESUL T >400 INVAL IDATE S THE CALCU LATIO N FOR LDL FRACT IONAT ION - THE LDL RESUL T WILL NOT BE REPOR GONZALES. Not Available [facility] (Lab) [address] [place], [address], 01/04/2024 20:01:55 01/04/20 24 01/04/2024 HEPAT IC/LI NICK PANEL alkaline phosphatase 74 U/L 38-126 Not Available [facility] (Lab) [address] [place], [address], 01/04/2024 20:02:00 01/04/20 24 01/04/2024 HEPAT IC/LI NICK PANEL alanine aminotransfe rase 23 U/L 0-35 Not Available [facility] (Lab) [address] [place], [address], 01/04/2024 20:02:00 01/04/20 24 01/04/2024 HEPAT IC/LI NICK PANEL aspartate aminotransfe rase 31 U/L 15-37 Not Available [facility] (Lab) [address] [place], [address], 01/04/2024 20:02:00 01/04/20 24 01/04/2024 HEPAT IC/LI NICK PANEL bilirubin, total 0.40 mg/dL 0.20-1 .30 Not Available [facility] (Lab) [address] [place], [address], 01/04/2024 20:02:00 01/04/20 24 01/04/2024 HEPAT IC/LI NICK PANEL bilirubin, conjugated (direct) 0.00 mg/dL 0.00-0 .30 Not Available [facility] (Lab) [address] [place], [address], 01/04/2024 20:02:00 01/04/20 24 01/04/2024 HEPAT IC/LI NICK PANEL biliurubin,u ncong. (indirect) 0.20 mg/dL 0.00-1 .1 Not Available [facility] (Lab) [address] [place], [address], 01/04/2024 20:02:00 01/04/20 24 01/04/2024 HEPAT IC/LI NICK PANEL total protein 6.9 g/dL 6.3-8. 2 Not Available [facility] (Lab) [address] [place], [address], 01/04/2024 20:02:00 01/04/20 24 01/04/2024 HEPAT IC/LI NICK PANEL albumin 4.3 g/dL 3.0-4. 4 Not Available [facility] (Lab) [address] [place], [address], 01/04/2024 20:02:00 01/04/20 24 01/04/2024 HEPAT IC/LI NICK PANEL globulin 2.6 g/dL 2.6-4. 2 Not Available [facility] (Lab) [address] [place], [address], 01/04/2024 20:02:00 01/04/20 24 01/04/2024 HEPAT IC/LI NICK PANEL A/G ratio 1.7 ratio 1.0-2. 0 Not Available [facility] (Lab) [address] [place], [address], 01/04/2024 20:02:00 01/04/20 24 01/04/2024 BASIC METAB OLIC PANEL sodium 137 mmol/ L 137-14 5 Not Available [facility] (Lab) [address] [place], [address], 01/04/2024 20:02:11 01/04/20 24 01/04/2024 BASIC METAB OLIC PANEL potassium 4.6 mmol/ L 3.5-5. 1 Not Available [facility] (Lab) [address] [place], [address], 01/04/2024 20:02:11 01/04/20 24 01/04/2024 BASIC METAB OLIC PANEL chloride 106 mmol/ L 98-107 Not Available [facility] (Lab) [address] [place], [address], 01/04/2024 20:02:11 01/04/20 24 01/04/2024 BASIC METAB OLIC PANEL carbon dioxide 29 mmol/ L 22-30 Not Available [facility] (Lab) [address] [place], [address], 01/04/2024 20:02:11 01/04/20 24 01/04/2024 BASIC METAB OLIC PANEL anion gap 6.6 mmol/ L 14-22 low Not Available [facility] (Lab) [address] [place], [address], 01/04/2024 20:02:11 01/04/20 24 01/04/2024 BASIC METAB OLIC PANEL glucose 78 mg/dL 70-99 Not Available [facility] (Lab) [address] [place], [address], 01/04/2024 20:02:11 01/04/20 24 01/04/2024 BASIC METAB OLIC PANEL BUN 16 mg/dL 8-19 Not Available [facility] (Lab) [address] [place], [address], 01/04/2024 20:02:11 01/04/20 24 01/04/2024 BASIC METAB OLIC PANEL creatinine 1.01 mg/dL 0.66-1 .25 Not Available [facility] (Lab) [address] [place], [address], 01/04/2024 20:02:11 01/04/20 24 01/04/2024 BASIC METAB OLIC PANEL GFR 53 Refer ence Range : [place] ge GFR Healt hy Adult : >60 [...] or ethni c subgr oups, such as Hispa nics. Outsi de the valid ated zohreh [...] calcu lator is avail able on the [facility] websi te: [email or web address] :[email or web address] rg/pr ofess ional s/kdo qi/gf r_cal culat or Not Available [facility] (Lab) [address] [place], [address], 01/04/2024 20:02:11 01/04/20 24 01/04/2024 BASIC METAB OLIC PANEL calcium 9.7 mg/dL 8.4-10 .2 Not Available [facility] (Lab) [address] [place], [address], 01/04/2024 20:02:11 01/04/20 24 01/04/2024 TOT IRON JANET NG CAP total iron binding capacity 302 mcg/d L 265-47 5 Not Available [facility] (Lab) [address] [place], [address], 01/04/2024 20:11:57 01/04/20 24 01/04/2024 VITAM IN D 25-HY DROXY vd25oh 65.2 NG/mL 30-100 Vitam in D Statu s: Defic ient: <20 ng/mL Insuf ficie nt: 20-29 ng/mL Suffi cient : 30-10 0 ng/mL Not Available [facility] (Lab) [address] [place], [address], 01/04/2024 20:13:24 01/04/20 24 01/04/2024 TSH thyroid-stim ulating hormone 0.529 uIU/m L 0.465- 4.680 Not Available [facility] (Lab) [address] [place], [address], 01/04/2024 20:26:02 01/04/20 24 01/04/2024 ELIZABETH TIN ferritin 27 NG/mL 11.1-2 64 Not Available [facility] (Lab) [address] [place], [address], 01/04/2024 20:31:00 01/04/20 24 01/04/2024 VITAM IN B12 (CORTNEY FABIAN ) vb12 913 pg/mL 239-93 1 Not Available [facility] (Lab) [address] [place], [address], 01/04/2024 21:26:31 01/04/20 24 01/04/2024 FOLAT E, SERUM /PLAS MA folate >20.0 NG/mL 2.76-2 0.0 Not Available [facility] (Lab) [address] [place], [address], 01/04/2024 21:26:51 01/10/20 24 01/10/2024 URINA LYSIS COMPL ETE/I RIS W/RFX color LIGHT- YELLOW Not Available [facility] (Lab) [address] [place], [address], 01/10/2024 20:52:31 01/10/20 24 01/10/2024 URINA LYSIS COMPL ETE/I RIS W/RFX appear TURBID abnormal Not Available [facility] (Lab) [address] [place], [address], 01/10/2024 20:52:31 01/10/20 24 01/10/2024 URINA LYSIS COMPL ETE/I RIS W/RFX specific gravity 1.009 1.001- 1.030 Not Available [facility] (Lab) [address] [place], [address], 01/10/2024 20:52:31 01/10/20 24 01/10/2024 URINA LYSIS COMPL ETE/I RIS W/RFX pH 7.0 pH_un its 5.0-9. 0 Not Available [facility] (Lab) [address] [place], [address], 01/10/2024 20:52:31 01/10/20 24 01/10/2024 URINA LYSIS COMPL ETE/I RIS W/RFX leukocytes NEGATI VE patrick/u L negati ve- Not Available [facility] (Lab) [address] [place], [address], 01/10/2024 20:52:31 01/10/20 24 01/10/2024 URINA LYSIS COMPL ETE/I RIS W/RFX nitrite NEGATI VE negati ve- Not Available [facility] (Lab) [address] [place], [address], 01/10/2024 20:52:31 01/10/20 24 01/10/2024 URINA LYSIS COMPL ETE/I RIS W/RFX protein NEGATI VE mg/dL negati ve- Not Available [facility] (Lab) [address] [place], [address], 01/10/2024 20:52:31 01/10/20 24 01/10/2024 URINA LYSIS COMPL ETE/I RIS W/RFX glucose NORMAL mg/dL normal - Not Available [facility] (Lab) [address] [place], [address], 01/10/2024 20:52:31 01/10/20 24 01/10/2024 URINA LYSIS COMPL ETE/I RIS W/RFX ketones NEGATI VE mg/dL negati ve- Not Available [facility] (Lab) [address] [place], [address], 01/10/2024 20:52:31 01/10/20 24 01/10/2024 URINA LYSIS COMPL ETE/I RIS W/RFX urobilinogen NORMAL mg/dL normal - Not Available [facility] (Lab) [address] [place], [address], 01/10/2024 20:52:31 01/10/20 24 01/10/2024 URINA LYSIS COMPL ETE/I RIS W/RFX bilirubin NEGATI VE mg/dL negati ve- Not Available [facility] (Lab) [address] [place], [address], 01/10/2024 20:52:31 01/10/20 24 01/10/2024 URINA LYSIS COMPL ETE/I RIS W/RFX blood NEGATI VE mg/dL negati ve- Not Available [facility] (Lab) [address] [place], [address], 01/10/2024 20:52:31 01/10/20 24 01/10/2024 URINA LYSIS COMPL ETE/I RIS W/RFX white blood cells 0-8 /i??h pfi?? 0-8 Not Available [facility] (Lab) [address] [place], [address], 01/10/2024 20:52:31 01/10/20 24 01/10/2024 URINA LYSIS COMPL ETE/I RIS W/RFX red blood cells 0-4 /i??h pfi?? 0-4 Not Available [facility] (Lab) [address] [place], [address], 01/10/2024 20:52:31 01/10/20 24 01/10/2024 URINA LYSIS COMPL ETE/I RIS W/RFX bacteria NONE Not Available [facility] (Lab) [address] [place], [address], 01/10/2024 20:52:31 01/10/20 24 01/10/2024 URINA LYSIS COMPL ETE/I RIS W/RFX mucous OCCASI ONAL /i??l pfi?? abnormal Not Available [facility] (Lab) [address] [place], [address], 01/10/2024 20:52:31 01/10/20 24 01/10/2024 URINA LYSIS COMPL ETE/I RIS W/RFX squamous epithelial OCCASI ONAL /i??l pfi?? abnormal Not Available [facility] (Lab) [address] [place], [address], 01/10/2024 20:52:31 01/10/20 24 01/10/2024 urina lysis , dipst ick Leukocytes (reference range: negative patrick/ l) Negati ve Not Available [address], [place], [address], 01/10/2024 12:49:28 01/10/20 24 01/10/2024 urina lysis , dipst ick Nitrite (reference rage: negative mg/dl) negati ve Not Available [address], [place], [address], 01/10/2024 12:49:28 01/10/20 24 01/10/2024 urina lysis , dipst ick Urobilinogen (reference range: 0.2-1 mg/dl) 0.2 Not Available [address], [place], [address], 01/10/2024 12:49:28 01/10/20 24 01/10/2024 urina lysis , dipst ick Protein (reference range: negative mg/dl) Negati ve Not Available [address], [place], [address], 01/10/2024 12:49:28 01/10/20 24 01/10/2024 urina lysis , dipst ick pH (reference range: 5-7) 7.5 Not Available [address], [place], [address], 01/10/2024 12:49:28 01/10/20 24 01/10/2024 urina lysis , dipst ick Blood (reference range: negative Luigi/ l) Negati ve Not Available [address], [place], [address], 01/10/2024 12:49:28 01/10/20 24 01/10/2024 urina lysis , dipst ick Specific [place] (reference range: 1.005-1.030) 1.020 Not Available [address], [place], [address], 01/10/2024 12:49:28 01/10/20 24 01/10/2024 urina lysis , dipst ick Ketone (reference range: negative mg/dl) Negati ve Not Available [address], [place], [address], 01/10/2024 12:49:28 01/10/20 24 01/10/2024 urina lysis , dipst ick Bilirubin (reference range: negative mg/dl) Negati ve Not Available [address], [place], [address], 01/10/2024 12:49:28 01/10/20 24 01/10/2024 urina lysis , dipst ick Glucose (reference range: negative mg/dl) Negati ve Not Available [address], [place], [address], 01/10/2024 12:49:28 01/10/20 24 01/10/2024 urina lysis , dipst ick Appearance Clear Not Available [address], [place], [address], 01/10/2024 12:49:28 01/10/20 24 01/10/2024 urina lysis , dipst ick Color Pale Yellow Not Available [address], [place], [address], 01/10/2024 12:49:28 Result Notes None recorded. Problems Name Problem SNOMED Code Status Onset Date Resolution Date Notes Provider Name and Address Organization Details Recorded Time Irritable bowel syndrome 90562834 Active Not Available [facility] 3 08:34:03 Pain of bilateral hip joints 65303351609 916232 Active 2021 Not Available [facility] 3 08:34:03 Acquired trigger finger 2164739 Active Not Available [facility] 3 08:34:03 Pain of left ankle joint 23721140681 247875 Active 2020 Not Available [facility] 3 08:34:03 Increased frequency of urination 470128412 Completed Maite Guaman RN null, [place] - [facility] 4 10:40:26 History of Schatzkis ring 22353216790 073927 Active Not Available [facility] 3 08:34:03 Open wound of hand, excluding finger(s) 757462924 Completed Not Available [facility] 3 08:09:15 Gastric reflux 259567152 Active Not Available [facility] 3 08:34:03 Gastroeso phageal reflux disease 123265329 Active Not Available [facility] 3 08:34:03 Labyrinth itis 29074547 Completed Not Available [facility] 3 08:09:15 Glaucoma 60684688 Active Not Available [facility] 3 08:34:03 Gastroeso phageal reflux disease without esophagit is 949455027 Active 2021 Not Available [facility] 3 08:34:03 Enthesopa thy of hip region 15193398 Active Not Available [facility] 3 08:34:03 Trochante pallavi bursitis of right hip 45819345538 9100 Active 2021 Not Available [facility] 3 08:34:03 Viral disease 61412544 Completed Not Available [facility] 3 08:09:16 Dehydrati on 94401116 Completed Not Available [facility] 3 08:09:16 Vitamin D deficienc y 84331969 Active Not Available [facility] 3 08:34:03 Depressiv e disorder 50901891 Active Not Available [facility] 3 08:34:03 Osteoarth ritis 287351369 Active Not Available [facility] 3 08:34:03 Chronic kidney disease stage 3 729498651 Active 2020 Not Available [facility] 3 08:34:03 Pain of shoulder region 32657054 Completed Not Available [facility] 3 08:09:16 Pain of right knee joint 42964512944 4100 Active 2021 Not Available [facility] 3 08:34:03 Pain of left knee joint 95536411906 4107 Active 2021 Not Available [facility] 3 08:34:03 Cartilage disorder 63225316 Active 2021 Not Available [facility] 3 08:34:03 Upper respirato ry infection 40972776 Completed Not Available [facility] 3 08:09:17 Hyperlipi demia 83999402 Active Not Available [facility] 3 08:34:03 Carpal tunnel syndrome 25895685 Active Not Available [facility] 3 08:34:03 Essential hypertens ion 55671836 Active Not Available [facility] 3 08:34:03 Candidal vulvovagi nitis 12491514 Completed Not Available [facility] 3 08:09:17 Degenerat ion of intervert ebral disc 23546927 Active Not Available [facility] 3 08:34:03 Ganglion of joint 66409986 Active Not Available [facility] 3 08:34:03 Fatigabil ity 43525426 Completed Not Available [facility] 3 08:09:17 Neck pain 97498448 Completed Not Available [facility] 3 08:09:18 Hiatal hernia 37541993 Active Not Available [facility] 3 08:34:03 Fatigue 89348238 Completed Not Available [facility] 3 08:09:18 Iron deficienc y anemia 61908394 Active Not Available [facility] 3 08:34:03 Thyroid function tests abnormal 945219419 Active 2022 Not Available [facility] 3 08:34:03 Impacted cerumen in right ear 16706603135 73612 Active 2022 Not Available [facility] 3 08:34:03 Eczema of external auditory canal 84778735 Active 2022 Not Available [facility] 3 08:34:03 Bursitis 58596279 Active 2022 Not Available [facility] 3 08:34:03 Anxiety 77895414 Active 2022 Not Available [facility] 3 08:34:03 Mixed anxiety and depressiv e disorder 142427912 Active 2022 Not Available [facility] 3 08:34:03 Acute sinusitis 13361883 Active 2023 NUNO Toscano-Adrian [address], [address] , [facility] 4 15:03:42 Dysuria 39672130 Active 2023 Maite Guaman RN null, [facility] 4 10:35:27 Increased frequency of urination 496871067 Active 2023 Maite Guaman RN null, [place] [employer] [facility] [email or web address] [facility] 4 10:40:26 Acute urinary tract infection 044834291 Active 2023 Fadumo Benites MD [address], [place], [address] , [facility] [email or web address] [facility] 4 12:43:58 Cobalamin deficienc y 041081152 Active 2023 Fadumo Benites MD [address], [place], [address] , [facility] [employer] [facility] [email or web address] [facility] 4 11:15:22 Urinary symptoms 173168079 Active 2023 SHE Lee, Veeva [facility] [employer] [facility] 4 12:38:36 Chronic diarrhea 462424097 Active 2024 Christy Hughes MD [address], [place], [address] , [facility] [employer] [facility] [employer] [facility] 5 13:06:29 Problem Notes None recorded. Procedures Surgical History Date Name Laterality Status Provider Name and Address Organization Details Recorded Time 09/08/20 23 Medicare Wellness CPT Code, subsequent completed Mary Guerra RN [facility] [employer] [facility] 09/08/2023 10:55:07 10/10/19 18 Endoscopy completed Not Available [facility] 3 08:06:27 release of trigger finger completed Not Available [facility] 12/08/2022 08:06:27 Carpal tunnel surgery completed Not Available [facility] 12/08/2022 08:06:27 Colonoscopy completed Sherice Roblero LPN [place] [employer] [facility] [employer] [facility] 06/14/2023 12:58:59 operation on retina completed Not Available [facility] 12/08/2022 08:06:27 Imaging Results None recorded. Procedure Notes None recorded. Medical Equipment None Reported. Allergies Allergen ID Allergen Name Allergen Category Reaction Reaction Severity Criticality Documentation Date Start Date Code Code System Note Provider Name and Address Organization Details Recorded Time Xanax medicatio n Not available Not available Not available 12/08/2022 3 RxNorm swell ing Not Available [facility] 08:14:03 naproxen medicatio n Not available Not available Not available 12/08/2022 7258 RxNorm feet swell ing Not Available [facility] 3 08:14:03 Effexor medicatio n Not available Not available Not available 12/08/2022 04775 2 RxNorm light heade d Not Available [facility] 3 08:14:03 Medications Name Sig Start Date Stop Date Status Note LastModified by Organization Details LastModified Time Prescriptio n - Renewal active Not Available Not Available Not Available amoxicillin 500 mg capsule 03/20 completed Not Available Not Available Not Available promethazin e-DM 6.25 mg-15 mg/5 mL oral syrup TAKE 5 ML BY MOUTH EVERY 4 - 6 HOURS NEEDED FOR COUGH 01/30 completed Not Available Not Available Not Available [...] ended release 24 hr TAKE 1 CAPSULE DAILY 01/30 completed Not Available Not Available Not Available hydrocodone 5 mg-acetamin ophen 325 mg [...] Available Not Available famotidine 20 mg tablet TAKE 1 TABLET TWICE A DAY active Not Available Not Available No t Available pravastatin 10 mg tablet TAKE 1 TABLET DAILY active Not Available Not Available No t Available triamcinolo ne acetonide 0.1 % dental paste APPLY TOPICALLY ONTO THE AFFECTED AREA(S) 3 TIMES DAILY NEEDED 01/30 completed Not Available Not Available Not Available DOK 100 mg capsule TAKE 1 CAPSULE BY MOUTH EVERY DAY active Not Available Not Available No t Available Kenalog 10 mg/mL suspension for injection in office 08/04 completed [facility]: 0003- [id number]- [id number] Not Available Not Available [...] Available Not Available Not Available nitrofurant oin macrocrysta l 100 mg capsule TAKE 1 CAPSULE BY MOUTH EVERY 12 HOURS WITH A MEAL/FOOD 01/30 completed Not Available Not Available Not Available ranitidine 150 mg tablet Take 1 tablet twice a day by oral route. 09/13 completed Not Available Not Available Not Available buspirone 10 mg tablet Take 1 tablet 3 times a day by oral route for 90 days. 12/13 completed Not Available Not Available Not Available losartan 25 mg tablet TAKE 1 TABLET DAILY active Not Available Not Available No t Available clotrimazol e 1 % topical solution PLEASE SEE ATTACHED FOR DETAILED DIRECTION S 01/30 completed Not Available Not Available Not Available omeprazole 20 mg capsule,del ayed release Take 1 capsule every day by oral route for 90 days. 12/13 completed Not Available Not Available Not Available codeine 10 mg-guaifene sin 100 mg/5 mL oral liquid Take 10 mL every 4 hours by oral route for 3 days. 03/14 completed Not Available Not Available Not Available azelastine 137 mcg (0.1 %) nasal spray SPRAY 1 TO 2 SPRAYS INTO BOTH NOSTRILS AT BEDTIME 01/30 completed Not Available Not Available Not Available polyethylen e glycol 3350 17 gram/dose oral powder MIX 1 CAPFUL IN 4-8 OZ OF LIQUID AND TAKE BY MOUTH ONCE DAILY NEEDED FOR CONSTIPAT ION active Not Available Not Available No t Available cefdinir 300 mg capsule TAKE 1 CAPSULE BY MOUTH EVERY 12 HOURS 01/30 completed Not Available Not Available Not Available fluticasone propionate 50 mcg/actuati on nasal spray,suspe nsion USE 2 SPRAYS IN EACH NOSTRIL QD 12/03 completed Not Available Not Available Not Available betamethaso ne dipropionat e 0.05 % lotion APPLY 2 TIMES DAILY TO ITCHY SCALP AREAS 01/30 completed Not Available Not Available Not Available [...] TAKE 1 TABLET BY MOUTH EVERY DAY 01/30 completed Not Available Not Available Not Available bupropion HCl XL 150 mg 24 [...] administe red by the provider 06/17 completed [facility]: [phone] Not Available Not Available [...] TIMES PER WEEK. MAX, 5 DROPS DAILY. 01/30 completed Not Available Not Available Not Available oseltamivir 30 mg capsule 09/20 completed Not Available Not Available Not Available Lumigan 0.01 % eye drops INSTILL 1 DROP INTO BOTH EYES AT BEDTIME active Not Available Not Available No t Available [employer] 1.5 billion cell capsule Take 1 capsule every day by oral route in the morning for 30 days. 03/28 completed Not Available Not Available Not Available ropivacaine (PF) 5 mg/mL (0.5 %) injection solution in office 08/04 completed [facility] [phone] Not Available Not Available Not Available mirabegron ER 50 mg tablet,exte nded release 24 hr TAKE 1 TABLET BY MOUTH EVERY DAY 2024 active Not Available Not Available Not Avai lable mirabegron ER 25 mg tablet,exte nded release 24 hr TAKE 1 TABLET BY MOUTH EVERY DAY 01/30 completed Not Available Not Available Not Available Shingrix (PF) 50 mcg/0.5 mL intramuscul ar suspension, kit 03/24 completed Not Available Not Available Not Available Fluzone High-Dose 2018- (PF) 180 mcg/0.5 mL intramuscul ar syringe active Not Available Not Available N ot Available Fluad Quad (6 5yr up)(PF) 60 mcg (15 mcg x 4)/0.5mL IM syringe ADM 0.5ML IM UTD active Not Available Not Available No t Available Sutab 1.479-0.188 -0.225 gram tablet TAKE DIRECTED active Not Available Not Available No t Available Flowflex COVID-19 Antigen Home Test kit USE DIRECTED 01/11 completed Not Available Not Available Not Available Vitals Date Recorded Body height Body mass index (BMI) Body weight Heart rate Oxygen saturation Oxygen saturation in Arterial blood by Pulse oximetry Systolic blood pressure Diastolic blood pressure Provider Name and Address Organization Details Last Updated DateTime 4 151.13 cm 25.8 kg/m2 08753.0 1 g 84 /min 97 % 97 % 146 mm[Hg] 74 mm[Hg] Mary Guerra RN [employer] 4 10:52:40 Date Recorded Body temperature Provider Name a nd Address Organization Details Last Updated DateTime 01/04/2024 97.6 [degF] Fadumo Benites MD [address], [facility] [address], [place], [address], [employer] 01/04/2024 10:57:11 Date Recorded Body height Body mass index (BMI) Body weight Heart rate Oxygen saturation Oxygen saturation in Arterial blood by Pulse oximetry Systolic blood pressure Diastolic blood pressure Provider Name and Address Organization Details Last Updated DateTime 5 151.13 cm 27 kg/m2 14357.5 6 g 76 /min 97 % 97 % 114 mm[Hg] 68 mm[Hg] CLAUDIA Sifuentes [place] - [facility] [place] [employer] [facility] 5 12:31:31 Social History Question Answer Notes LastModified by Organization Details LastModified Time Tobacco Smoking Status Never Smoker Not Available [facility] 12/08/2022 08:06:16 Do You Have An Advance Directive? Yes MIGRATION.030 [id number] Information not available 12/08/2022 Are You Blind Or Do You Have Difficulty Seeing? Yes Wears Glasses MIGRATION.030 243051 Information not available 12/08/2022 What Is Your Level Of Caffeine Consumption? Moderate MIGRATION.030 250056 Information not available 12/08/2022 How Much Tobacco Do You Chew? None MIGRATION.030 662154 Information not available 12/08/2022 In The 14 Days Before Symptom Onset, Have You Had Close Contact With A Laboratory-confi rmed COVID-19 While That Case Was Ill? No MIGRATION.030 001025 Information not available 12/08/2022 In The 14 Days Before Symptom Onset, Have You Had Close Contact With A Person Who Is Under Investigation For COVID-19 While That Person Was Ill? No MIGRATION.030 951147 Information not available 12/08/2022 Are You Deaf Or Do You Have Serious Difficulty Hearing? Yes Wears Hearing Aids MIGRATION.030 375379 Information not available 12/08/2022 What Type Of Diet Are You Following? REGULAR MIGRATION.030 176330 Information not available 12/08/2022 Which Illicit Or Recreational Drugs Have You Used? No MIGRATION.030 610930 Information not available 12/08/2022 Have There Been Any Changes To Your Family Or Social Situation? No MIGRATION.030 563271 Information not available 12/08/2022 What Is The Fluoride Status Of Your Home? Unknown MIGRATION.030 806983 Information not available 12/08/2022 Do You Use Insect Repellent Routinely? No MIGRATION.030 107028 Information not available 12/08/2022 Where Do You Live? [place]House MIGRATION.030 397585 Information not available 12/08/2022 Do You Have A Medical Power Of Healthcare Business Analyst? Yes MIGRATION.030 302688 Information not available 12/08/2022 What Was The Date Of Your Most Recent Tobacco Screening? 09/08/2023 [email or web address] Information not available 09/08/2023 What Is Your Relationship Status? MIGRATION.0301 385762 Information not available 12/08/2022 Do You Use Your Seat Belt Or Car Seat Routinely? Yes MIGRATION.0301 [id number] Information not available 12/08/2022 Do You Have Smoke And Carbon Monoxide Detectors In Your Home? Yes MIGRATION.0301 647404 Information not available 12/08/2022 How Much Tobacco Do You Smoke? No MIGRATION.0301 152390 Information not available 12/08/2022 Do You Use Sunscreen Routinely? No MIGRATION.0301 435606 Information not available 12/08/2022 Has Tobacco Cessation Counseling Been Provided? No MIGRATION.0301 654607 Information not available 12/08/2022 Have You Recently Traveled Abroad? No MIGRATION.0301 210516 Information not available 12/08/2022 Do You Have Any Dietary Restrictions? No MIGRATION.0301 549368 Information not available 12/08/2022 Sex: Unknown Functional Status Question Answer Note LastModified by [employer] Details LastModified Time Do you or have you ever used smokeless tobacco? Never used smokeless tobacco MIGRATION.005206 3173 Information not available 12/08/2022 Do you have difficulty walking or climbing stairs? No MIGRATION.994253 6988 Information not available 12/08/2022 Do you have transportation difficulties? No MIGRATION.659899 0670 Information not available 12/08/2022 Are you able to care for yourself? Yes MIGRATION.193958 5076 Information not available 12/08/2022 Do you have difficulty dressing or bathing? No MIGRATION.121425 6140 Information not available 12/08/2022 Do you or have you ever used e-cigarettes or vape? Never used electronic cigarettes MIGRATION.792499 8002 Information not available 12/08/2022 What is your exercise level? Occasional MIGRATION.211006 9104 Information not available 12/08/2022 Do you use any illicit or recreational drugs? No MIGRATION.502435 7368 Information not available 12/08/2022 Do you or have you ever used any other forms of tobacco or nicotine? No MIGRATION.016750 7216 Information not available 12/08/2022 What is your level of alcohol consumption? None MIGRATION.583199 5577 Information not available 12/08/2022 Are you able to walk? YESWOREST MIGRATION.596728 3662 Information not available 12/08/2022 Do you have difficulty doing errands alone? No MIGRATION.457118 8098 Information not available 12/08/2022 What is your occupation? Retired MIGRATION.319282 8094 Information not available 12/08/2022 Mental Status Question Answer Note LastModified by Organizat ion Details LastModified Time Do you have difficulty concentrating, remembering or making decisions? No MIGRATION.[id number] 6 Information not available 12/08/2022 Family History Relationship Description Onset Age of this Age Resolved Age Notes LastModified by Organization Details LastModified Time Mother Heart disease MIGRATION.226 [id number] Not available 12/08/2022 08:06:28 Mother Glaucoma MIGRATION.635 [id number] Not available 12/08/2022 08:06:28 Mother Alzheimer's disease MIGRATION.634 3616231 Not available 12/08/2022 08:06:28 Father Diabetes mellitus MIGRATION.534 1350312 Not available 12/08/2022 08:06:28 Father Essential hypertension MIGRATION.160 [id number] Not available 12/08/2022 08:06:28 Notes:LOSS OF HEARING: [...] HAVE YOU BEEN HOSPITALIZED OR SEEN IN [place] IN THE PAST YEAR ? N ATHEROSCLEROSIS [...] Time Tdap 3 completed Fadumo Benites MD [address] [place] [address], [address], [facility] 09/08/2023 19:25:39 influenza, unspecified formulation 2 completed Not Available [facility] 10/09/2023 08:34:04 Influenza, split virus, quadrivalent, preservative 9 completed Not Available [facility] 10/09/2023 08:34:04 Influenza, high-dose, trivalent, PF 6 completed Not Available [facility] 10/09/2023 08:34:04 Influenza, split virus, trivalent, preservative 5 completed Not Available [facility] 10/09/2023 08:34:04 Influenza, split virus, trivalent, preservative 4 completed Not Available [facility] 10/09/2023 08:34:04 Tdap 3 completed Not Available [facility] 10/09/2023 08:34:04 pneumococcal polysaccharide PPV23 2 completed Not [facility] 10/09/2023 08:34:04 zoster live 8 completed Not Available [facility] 10/09/2023 08:34:04 pneumococcal polysaccharide PPV23 6 completed Not Available [facility] 10/09/2023 08:34:04 pneumococcal polysaccharide PPV23 0 completed Not Available [facility] 10/09/2023 08:34:04 Influenza, high-dose, quadrivalent, PF 1 completed Not Available [facility] 10/09/2023 08:34:04 Influenza, high-dose, trivalent, PF 7 completed Not Available [facility] 10/09/2023 08:34:04 Pneumococcal conjugate PCV 13 7 completed Not Available [facility] 10/09/2023 08:34:04 Past Encounters Encounter ID Performer Location Encounter Start Date Encounter Closed Date Diagnosis/Indication Diagnosis SNOMED-CT Code Diagnosis ICD10 Code Diagnosis Note [id number] Fadumo Benites MD [facility] [facility] [address] [facility] [address] [place] [address] 12/18/2020 00:00:00 12/30/2020 14:45:20 [id number] NUNO Tyson [facility] Primary Care [facility] [address] [facility] [address] [place] [address] 01/16/2021 00:00:00 01/16/2021 10:40:29 [id number] S_Histor ic[facility] Podiatry Sod [address] [place] [address] 03/16/2021 00:00:00 03/17/2021 10:56:42 [id number] _ATHN_MIGR ATION_1 _ATHENA_M IGRATION_ DEFAULT_1 _1 , 04/01/2021 00:00:00 04/01/2021 16:19:58 [id number] Dustin Mackey MD [facility] [place] Ortho Sod [address] [place] [address] 04/03/2021 00:00:00 04/03/2021 12:18:42 [id number] _ATHN_MIGR ATION_1 _ATHENA_M IGRATION_ DEFAULT_1 _1 , 06/17/2021 00:00:00 06/17/2021 14:34:07 [id number] Fadumo Benites MD [facility] Primary Care [facility] [address] [place] [address] 06/22/2021 00:00:00 06/22/2021 12:47:39 [id number] Fadumo Benites MD [facility] Primary Care [facility] [address] [facility] [address] [place] [address] 07/08/2021 00:00:00 07/08/2021 18:07:23 [id number] Fadumo Benites MD [facility] Primary Care [facility] [address] [facility] [address] [place] [address] 07/21/2021 00:00:00 07/21/2021 13:03:44 [id number] ADELA Martinez [facility] [address] [facility] [address] [place] [address] 11/23/2021 00:00:00 11/23/2021 12:28:24 [id number] Dustin Mackey MD [facility]_[address] [address] 12/03/2021 00:00:00 12/03/2021 12:19:13 [id number] Dustin Mackey MD [facility] Ortho Sod [address] [place] [address] 02/12/2022 00:00:00 02/12/2022 09:17:35 [id number] Dustin Mackey MD [facility] [place] Sod [address] [place] [address] 04/16/2022 00:00:00 04/16/2022 11:07:00 [id number] Dustin Mackey MD [facility]_[address] [place] [address] 04/22/2022 00:00:00 04/22/2022 09:18:05 [id number] NUNO Tyson [facility] Primary Care [address] [place] [address] 04/30/2022 00:00:00 04/30/2022 18:11:04 [id number] _ATHN_MIGR ATION_1 _ATHENA_M IGRATION_ DEFAULT_1 _1 , 06/16/2022 00:00:00 06/16/2022 14:24:11 [id number] Fadumo Benites MD [facility] [place] Care [address] [place] [address] 08/25/2022 00:00:00 08/25/2022 14:03:32 [id number] Fadumo Benites MD [facility] Primary Care [address] [place] [address] 09/08/2022 00:00:00 09/08/2022 17:46:24 [id number] Fadumo Benites MD [facility] Primary Care [address] [place] [address] 09/22/2022 00:00:00 10/06/2022 20:46:44 [id number] Fadumo Benites MD [facility] Primary Care [address] [place] [address] 03/16/2023 13:59:56 03/16/2023 15:06:33 Depressive disorder 79890307 F32.A not in good controld/c duloxetine and trial of bupropion xl 150 mg dailytake with food in AMReviewed potential med s/e, d/c and be seen if any si/hi Thyroid fu nction tests abnormal 501468286 R94.6 had normalized at last check in check labson no meds [id number] Dustin Mackey MD S[facility] [place]o [place] [address] [place] [address] 03/25/2023 14:19:03 03/25/2023 15:13:05 Pain of bilateral hip joints 7489063807 0042034 M25.551 M25.552 [id number] Fadumo Benites MD [facility] Primary Care [facility] [address] [facility] [address] [place] [address] 05/26/2023 08:36:36 05/26/2023 09:32:26 Depressive disorder 70007469 F32.A doing very wellcontin ue bupropion xl 150 mg dailytake with food in AMf/u in August at previously scheduled annual appt [id number] Christy Hughes MD [facility] General Surgery [address] [place] [address] 06/15/2023 15:01:55 06/15/2023 15:52:11 Gastroesophageal reflux disease without esophagitis 374706245 K21.9 [id number] José Miguel Donnelly MD [facility] ENT Sod [address] [place] [address] 06/22/2023 12:11:53 06/22/2023 12:55:12 Impacted cerumen in right ear 4764369921 342304 H61.21 Eczema of external auditory canal 02023390 H60.878 [id number] Dustin Mackey MD [facility] [address] [place] [address] 08/04/2023 14:27:45 08/08/2023 10:48:44 Pain of bilateral hip joints 7018396147 4973270 M25.551 M25.552 M70.62 M70.61 [id number] Fadumo Benites MD [facility] [place] Care [facility] [address] [facility] [address] [place] [address] 09/08/2023 10:52:21 09/08/2023 11:50:57 Adult health examination 857392358 Z00.00 Fasting labs orderedS/p hysterecto my no further paps neededReco mmended annual flu vaccinesCo vid booster 08/26/23Sh e has completed shingles vaccinePre vnar 13, pneumovax 23 doneCologu ish normal 05/2020-no further screening neededMamm ogram orderedFas ting labs up to dateHep C screen done 2016DEXA done 04/2019, normal repeat ordered Screening mammography 24 935360 Z12.31 Postmenopausal state 764 73797 Z78.0 Active or passive immunization 413590874 Z23 Chronic ki dney disease stage 3 824565333 N18.30 Essential hypertension 33928153 I10 Gastroesop hageal reflux disease without esophagitis 187488637 K21.9 Glaucoma 25828066 H40.9 Hyperlipidemia 22388503 E78.5 Iron defic iency anemia 22434365 D50.9 Thyroid fu nction tests abnormal 717807271 R94.6 recheck labson no meds Vitamin D deficiency 347 84643 E55.9 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 increase bupropion xl 300 mgcall in 2-4 weeks with update [id number] Fadumo Benites MD [facility] Primary Care [address] [place] [address] 12/12/2023 10:32:48 12/14/2023 10:14:27 [id number] Fadumo Benites MD [address] [address] 12/22/2023 10:39:54 12/22/2023 12:29:47 [id number] Fadumo Benites MD [address] [address] 12/27/2023 11:57:49 12/27/2023 12:26:10 [id number] Fadumo Benites MD [facility] Primary Care [address] [address] 01/04/2024 10:45:55 01/04/2024 11:34:07 Acute urinary tract infection 942446675 N39.0 Finished abx yesterdayw ould like test of cure next week Mixed anxi ety and depressive disorder 416566028 F41.8 having appetite suppressio n with bupropion xl 300 mgdecrease to 150 mg dailyif not effective, consider escitalopr am 10 mg daily Depressive disorder 3548 9007 F32.A Gastroesop hageal reflux disease without esophagitis 720903526 K21.9 Renewal of prescription 394149871 Z76.0 Essential hypertension 80154259 I10 Hyperlipidemia 06790285 E78.5 Chronic ki dney disease stage 3 899940050 N18.30 Iron defic iency anemia 85876006 D50.9 Thyroid fu nction tests abnormal 922017997 R94.6 recheck labson no meds Vitamin D deficiency 347 33565 E55.9 Cobalamin deficiency 190 328838 E53.8 [id number] Fadumo Benites MD [facility] Primary Care [facility] [address] [facility] [address] [place] [address] 01/10/2024 12:26:33 01/10/2024 12:41:27 [id number] Christy Hughes MD [facility] General Surgery [address] [address] 01/30/2025 12:22:28 01/30/2025 13:52:23 Gastroesophageal reflux disease without esophagitis 971173225 K21.9 Chronic diarrhea 7098008 09 K52.9 Health Concerns Section Related Observation LastModified by Organization Detai ls LastModified Time None Recorded Concern Status LastModified by Organization Details LastModified Time None Recorded Advance Directives Directive Y: Payers Encounter Date Sequence Insurance Name Policy Number Policy Welsh Covered Member ID Welsh Member ID Guarantor Name 12/22/2023 1 [employer] (MEDICARE REPLACEMENT PPO) [id number] 1 Pranay Mehul Windy [id number] Pranay Temple 12/27/2023 1 [employer] (MEDICARE REPLACEMENT PPO) [id number] 1 Pranay A Windy [id number] Pranay Temple 01/04/2024 1 [employer] (MEDICARE REPLACEMENT PPO) [id number] 1 Pranay Mehul Windy [id number] Pranay Temple 01/10/2024 1 [employer] (MEDICARE REPLACEMENT PPO) [id number] 1 Pranay Mehul Windy [id number] Pranay Temple 01/30/2025 1 [employer] (MEDICARE REPLACEMENT PPO) [id number] 1 Pranay Temple [id number] Pranay Temple Notes Date Note Type Note Provider Name and Address Organization Details Recorded Time 01/04/2024 text/html Here to f/u, finished her abx for ecoli uti yesterday, wants test of cure in future she is on bupropion xl 300 mg daily (2 of the 150 mg), she is having appetite suppression and has lost several pounds Fadumo Benites MD [address] [facility], [place], [address], [employer] 01/06/2024 14:07:04 01/30/2025 text/html PRANAY WAS SEEN I N THE OFFICE TODAY FOR DIARRHEA EVALUATION . PT REPORTS LOOSE WATERY STOOLS . SHE DENIES PAIN THAT PRECEEDS HER BM AND RESOLVES AFTERWARDS .PT DENIESGALL BLADDER REMOVAL . PT SX ARE X 2 MTHS . SHE HAD CONSTIPATION FOR WHICH SHE TOOK MIRALAX. IN THE PAST Christy Hughes MD [address], [place], [address], [employer] 01/30/2025 13:07:17 OBGyn Episode No OBEpisode recorded.
--- OUTSIDE RECORDS SUMMARY | 2025-02-18 15:05 | XMS_ITS | Encounter Summary ---
Author Organization [facility] Address [address] [place] [address] Care Team Providers Care Inventory Control Assistant Name Role Phone Nemo Luu MD Primary Care Provider Encounter Details Date Type Department Care Team (Late st Contact Info) Description 08/20/2024 Lab Requisition [facility] - DermPath Lab [address] [place] [address] [place] [address] Social History Tobacco Use Types Packs/Day Years Used Date Smoking Tobacco: Never Assessed Comments Unknown Sex and Gender Information Value Date Recorded Sex Assigned at Not on file Legal Sex Female 6:18 PM UNDERGROUND PRODUCTION FOREPERSON Gender Identity Not on file Sexual Orientation Not on file documented as of this encounter Plan of Treatment Not on file documented as of this encounter Procedures Procedure Name Priority Date/Time Associated Diagnosis Comments DERMATOPATHOLOGY Routine 08/17/2024 12:0 0 AM UNDERGROUND PRODUCTION FOREPERSON documented in this encounter Results * DERMATOPATHOLOGY (08/17/2024 12:00 AM UNDERGROUND PRODUCTION FOREPERSON) Case Report Dermatopathology Report Case: [id number] Authorizing Provider: Carroll Jamison MD Collected: 08/17/2024 12:00 AM Ordering Location: [facility] - Received: 08/20/2024 02:20 PM DermPath Lab Pathologist: Fifi Harley MD Specimen: Skin, right posterior base of scalp @ hairline 4 3:16 PM UNDERGROUND PRODUCTION FOREPERSON DERMATOPATHOLOGY LABORATORY Final Diagnosis Specimen A. SKIN, right posterior base of scalp @ hairline: RUPTURED EPIDERMOID CYST (L72.0) PRESENT AT MARGIN 4 3:16 PM UNDERGROUND PRODUCTION FOREPERSON DERMATOPATHOLOGY LABORATORY Clinical History R/O BCC vs Cyst Please check margins 3:16 PM [facility] DERMATOPATHOLOGY LABORATORY Gross Description Specimen A: Received is one formalin filled container labeled with the patients name and designated right posterior base of scalp @ hairline. The specimen consists of a shave removal measuring 6x5x2 mm. Jar 0. 3:16 PM [facility] DERMATOPATHOLOGY LABORATORY Microscopic Description Specimen A. SKIN, right posterior base of scalp @ hairline: Within the dermis, there is an infiltrate composed of lymphocytes and histiocytes, including multinucleated type giant cells. Some histiocytes contain flakes of material consistent with keratin. This lesion is present at the margin of the specimen. 3:16 PM [facility] DERMATOPATHOLOGY LABORATORY Disclaimer An external and internal positive and negative controls are appropriate for the histochemical, immunohistochemical and immunofluorescence stain(s) in this case (if any), except where stated explicitly. The performance characteristics of the stain(s) cited in this report were developed and its performance characteristic determined by the Dermatopathology Laboratory at [facility], directed by Dr. Charlette Arteaga. These tests need not be, and therefore are not, approved by the [place] Food and Drug Administration. The tests are used for clinical purposes. Billing Codes Specimen Charges Stain Charges 47994 1 3:16 PM [facility] DERMATOPATHOLOGY LABORATORY Embedded Images 3:16 PM [facility] DERMATOPATHOLOGY LABORATORY Pathology/Cytolog y TISSUE SPECIMEN FROM SKIN / Unknown 08/17/2024 08/20/2024 2:20 PM UNDERGROUND PRODUCTION FOREPERSON us Carroll Jamison MD LAB - PATHOLOGY/CYTOLOGY ORD ERABLES Final Result DERMATOPATHOLOGY LABORATORY [facility] - Department of Dermatology [address], [address] [phone] documented in this encounter Visit Diagnoses Not on filedocumented in this encounter Care Teams Inventory Control Assistant Relationship Specialty Start Date End Date Nemo Luu MD [address] [place] [address] [phone] PCP - General 02/21/15 documented as of this encounter
[2025-02-18 20:08] LABS: Add Urine Microscopic? YES; Appearance Urine Cloudy (Clear); Bacteria Urine 4+ /hpf; Bilirubin Urine Negative (Negative); Blood Urine Trace (Negative); Color Urine Yellow (Yellow); Glucose Urine UA Negative (Negative); Ketones Urine Negative (Negative); Leukocyte Esterase Ur 3+ LEU/UL (Negative); Nitrate Urine Negative (Negative); Non Pathogenic Casts 0-2; Protein Urine Negative (Negative); RBC Urine 0-2 /hpf (0-2); Squamous Epithelial Cell Urine Occasional /hpf (Few); Urobilinogen Urine 0.2 mg/dL (<2.0); WBC Urine >100 /hpf (0-3); pH Urine 5.5 (5.0-9.0)
== END 2025-02-18 15:00 | disposition home or self-care (01) ==
PROVIDERS: PCP Internal Medicine; Visit Provider Clinical Nurse Specialist
DX: R39.9 Unspecified symptoms and signs involving the genitourinary system (principal)
CPT/HCPCS: 81001; 87086; 87186

== ENCOUNTER 2025-07-09 12:32 | Outpatient (CLI) | payer MEDICARE, SELFPAY ==
--- OUTSIDE RECORDS SUMMARY | 2025-07-09 12:35 | XMS_ITS | Clinical Summary ---
Author Organization [facility] Address [address] [place] [address] Care Team Providers Care Underpresser Hand Name Role Phone Nemo Luu MD Primary Care Provider Source Comments [facility],non-owned Affiliates and Associated Physician Practices is amultiple site organization consisting of ambulatory clinics and hospital sitesin [place], [place], [place] and [place]. This disclosure is being madepursuant to the Care Everywhere program and may not contain all information available regarding this patient. Last updated 18.[facility] Social History Tobacco Use Types Packs/Day Years Used Date Smoking Tobacco: Never Assessed Comments Unknown Sex and Gender Information Value Date Recorded Sex Assigned at Not on file Legal Sex Female 6:18 PM MARKETING WRITER Gender Identity Not on file Sexual Orientation Not on file Plan of Treatment Health Maintenance Due Date Last Done Comments BONE DENSITY TESTING 1945 DTAP/TDAP/TD VACCINES (1 - Tdap) 1965 PNEUMOCOCCAL VACCINE 50+ (1 of 1 - PCV) 01/22/1996 ZOSTER VACCINE (1 of 2) 01/22/1996 Respiratory Syncytial Virus (RSV) Vaccine Pt: or over 60 yrs (1 - 1-dose 75+ series) 2021 DEPRESSION SCREENING 10/10/2024 MEDICARE AWV CALENDAR YEAR 2024 COVID-19 VACCINE ( - 2023-2 5 season) 2025 INFLUENZA VACCINE (#1) 2025 HEPATITIS B VACCINE Aged Out No [...] topic Insurance [employer] MEDICARE ADV Care Teams Underpresser Hand Relationship Specialty Start Date End Date Nemo Luu MD [address] [place] [phone] PCP - General 02/21/15
--- OUTSIDE RECORDS SUMMARY | 2025-07-09 12:35 | XMS_ITS | Encounter Summary ---
Author Organization [facility] Address [address] [place] [address] Care Team Providers Care Fisher Trammel Net Name Role Phone Nemo Luu MD Primary Care Provider [phone] Encounter Details Date Type Department Care Team (Late st Contact Info) Description 08/20/2024 Lab Requisition [facility] - DermPath Lab [address] [place] [address] Carroll [place] [address] Social History Tobacco Use Types Packs/Day Years Used Date Smoking Tobacco: Never Assessed Comments Unknown Sex and Gender Information Value Date Recorded Sex Assigned at Not on file Legal Sex Female 6:18 PM CANVAS GOODS MAKER Gender Identity Not on file Sexual Orientation Not on file documented as of this encounter Plan of Treatment Not on file documented as of this encounter Procedures Procedure Name Priority Date/Time Associated Diagnosis Comments DERMATOPATHOLOGY Routine 08/17/2024 12:0 0 AM CANVAS GOODS MAKER documented in this encounter Results * DERMATOPATHOLOGY (08/17/2024 12:00 AM CANVAS GOODS MAKER) Case Report Dermatopathology Report Case: [id number] Authorizing Provider: Carrlol Jamison MD Collected: 08/17/2024 12:00 AM Ordering Location: [facility] - Received: 08/20/2024 02:20 PM DermPath Lab Pathologist: Fifi Harley MD Specimen: Skin, right posterior base of scalp @ hairline 4 3:16 PM CANVAS GOODS MAKER DERMATOPATHOLOGY LABORATORY Final Diagnosis Specimen A. SKIN, right posterior base of scalp @ hairline: RUPTURED EPIDERMOID CYST (L72.0) PRESENT AT MARGIN 4 3:16 PM CANVAS GOODS MAKER DERMATOPATHOLOGY LABORATORY at [address] CANVAS GOODS MAKER Clinical History R/O BCC vs Cyst Please check margins 3:16 PM [facility] DERMATOPATHOLOGY LABORATORY Gross Description Specimen A: Received is one formalin filled container labeled with the patients name and designated right posterior base of scalp @ hairline. The specimen consists of a shave removal measuring 6x5x2 mm. Jar 0. 3:16 PM [facility] DERMATOPATHOLOGY LABORATORY Microscopic Description Specimen A. SKIN, right posterior base of scalp @ hairline: Within the dermis, there is an infiltrate composed of lymphocytes and histiocytes, including multinucleated type giant cells. Some histiocytes contain flakes of material consistent with keratin. This lesion is present at the margin of the specimen. 3:16 PM [facility] DERMATOPATHOLOGY LABORATORY Disclaimer An external and internal positive and negative controls are appropriate for the histochemical, immunohistochemical and immunofluorescence stain(s) in this case (if any), except where stated explicitly. The performance characteristics of the stain(s) cited in this report were developed and its performance characteristic determined by the Dermatopathology Laboratory at [facility], directed by Dr. Charlette Arteaga. These tests need not be, and therefore are not, approved by the [place] Food and Drug Administration. The tests are used for clinical purposes. Billing Codes Specimen Charges Stain Charges 94044 1 3:16 PM [facility] DERMATOPATHOLOGY LABORATORY Embedded Images 3:16 PM [facility] DERMATOPATHOLOGY LABORATORY Pathology/Cytolog y TISSUE SPECIMEN FROM SKIN / Unknown 08/17/2024 08/20/2024 2:20 PM CANVAS GOODS MAKER Carroll Jamison MD LAB - PATHOLOGY/CYTOLOGY ORD ERABLES Final Result DERMATOPATHOLOGY LABORATORY [facility] - Department of Dermatology [address] [phone] documented in this encounter Visit Diagnoses Not on filedocumented in this encounter Care Teams Fisher Trammel Net Relationship Specialty Start Date End Date Nemo Luu MD [address] [place] [phone] PCP - General 02/21/15 documented as of this encounter
--- OUTSIDE RECORDS SUMMARY | 2025-07-09 12:35 | XMS_ITS | Clinical Summary ---
Author Organization [facility] Address [facility] [place] [address] Care Team Providers Care Verse Writer Name Role Phone Unavailable Primary Care Provider Unavailabl e Social History Tobacco Use Types Packs/Day Years Used Date Smoking Tobacco: Never Assessed Comments Unknown Sex and Gender Information Value Date Recorded Sex Assigned at Not on file Legal Sex Female 7:31 AM CDT Gender Identity Not on file Sexual Orientation Not on file Plan of Treatment Health Maintenance Due Date Last Done Comments Hepatitis C 01[birth year]22/1963 DTaP, Tdap and Td Vaccines ( 1 - Tdap) 1965 Pneumococcal Vaccine: 50+ Ye ars (1 of 1 - PCV) 01/22/1996 Zoster Vaccines (1 of 2) 01/22/1996 Dexa Scan (General) 2011 RSV Immunization or 60+ Years (1 - 1-dose 75+ series) 2021 COVID-19 Vaccine (2023-2 5 season) 2025 Meningococcal B Vaccine Aged Out No l onger eligible based on patient's age to complete this topic Meningococcal Vaccine Aged Out No michelle brad eligible based on patient's age to complete this topic RSV Immunizations Under 20 Months Aged Out No longer eligible based on patient's age to complete this topic
[2025-07-09 19:18] LABS: Hematocrit 42.1 % (37.0-47.0); Hemoglobin 13.6 g/dL (12.0-15.0); Immature Granulocyte Percent A 0.2 % (0-0.5); Lymphocytes Absolute Auto 1.30 K/mm3 (0.9-3.2); Mean Corpuscular HGB Conc 32.3 g/dl (32-36); Mean Corpuscular Hemoglobin 28.6 pg (26-34); Mean Corpuscular Volume 88.4 fl (80-100); Nucleated Red Blood Cells Absolute Auto 0.000 K/mm3 (0.0-0.012); Nucleated Red Blood Cells Perc 0.0 % (0.0-0.2); Platelet Count Result 193 k/mm3 (150-375); Red Blood Count 4.76 M/mm3 (4.2-5.4); White Blood Count 5.1 K/mm3 (4.5-10.0)
[2025-07-09 19:51] LABS: Alanine Aminotransferase 22 U/L (6-35); Albumin Level 4.3 g/dL (3.5-5.1); Alkaline Phosphatase 77 U/L (38-126); Anion Gap 5 mmol/L (4-12); Aspartate Amino Transferase 40 U/L (14-36); Bilirubin,Total 0.6 mg/dL (0.2-1.3); Blood Urea Nitrogen 20 mg/dL (7-17); Calcium 9.9 mg/dL (8.4-10.2); Carbon Dioxide 28 mmol/L (22-30); Chloride 102 mmol/L (98-107); Cholesterol 212 mg/dL (0-200); Estimated Glomerular Filt Rate 56; Glucose 86 mg/dL (65-110); HDL Direct 89 mg/dL; Potassium 4.7 mmol/L (3.4-5.0); Sodium 135 mmol/L (137-145); Total Protein 7.3 g/dL (6.3-8.2); Triglycerides 109 mg/dL (<150)
[2025-07-09 20:28] LABS: Thyroid Stimulating Hormone 1.950 uIU/mL (0.465-4.680)
[2025-07-09 20:47] LABS: Vitamin B12 953.0 pg/mL (239-931)
== END 2025-07-09 12:33 | disposition home or self-care (01) ==
LOC: ANHGOSHLAB 12:32
PROVIDERS: PCP Clinical Nurse Specialist; Visit Provider Clinical Nurse Specialist
DX: E78.2 Mixed hyperlipidemia (principal); I10 Essential (primary) hypertension; E53.8 Deficiency of other specified B group vitamins; E55.9 Vitamin D deficiency, unspecified; F32.A Depression, unspecified; N28.9 Disorder of kidney and ureter, unspecified; K21.9 Gastro-esophageal reflux disease without esophagitis
CPT/HCPCS: 36415; 80053; 80061; 82306; 82607; 84443; 85025

== ENCOUNTER 2025-10-04 11:01 | Outpatient (CLI) | payer MEDICARE, SELFPAY ==
--- OUTSIDE RECORDS SUMMARY | 2025-10-04 11:03 | XMS_ITS | Encounter Summary ---
Author Organization [facility] Address [address] [place] [place] [address] Care Team Providers Care Contemporary Or Modern Dancer Name Role Phone Nemo Luu MD Primary Care Provider Encounter Details Date Type Department Care Team (Late st Contact Info) Description 08/20/2024 Lab Requisition [facility] - DermPath Lab [address] [place] [address] Carroll [place] [address] Social History Tobacco Use Types Packs/Day Years Used Date Smoking Tobacco: Never Assessed Comments Unknown Sex and Gender Information Value Date Recorded Sex Assigned at Not on file Legal Sex Female 6:18 PM DISHWASHER Gender Identity Not on file Sexual Orientation Not on file documented as of this encounter Plan of Treatment Not on file documented as of this encounter Procedures Procedure Name Priority Date/Time Associated Diagnosis Comments DERMATOPATHOLOGY Routine 08/17/2024 12:0 0 AM DISHWASHER documented in this encounter Results * DERMATOPATHOLOGY (08/17/2024 12:00 AM DISHWASHER) Case Report Dermatopathology Report Case: [id number] Authorizing Provider: Carroll Jamison MD Collected: 08/17/2024 12:00 AM Ordering Location: [facility] - Received: 08/20/2024 02:20 PM DermPath Lab Pathologist: Fifi Harley MD Specimen: Skin, right posterior base of scalp @ hairline 4 3:16 PM DISHWASHER DERMATOPATHOLOGY LABORATORY Final Diagnosis Specimen A. SKIN, right posterior base of scalp @ hairline: RUPTURED EPIDERMOID CYST (L72.0) PRESENT AT MARGIN 4 3:16 PM DISHWASHER DERMATOPATHOLOGY LABORATORY at [address] DISHWASHER Clinical History R/O BCC vs Cyst Please check margins 3:16 PM [facility] DERMATOPATHOLOGY LABORATORY Gross Description Specimen A: Received is one formalin filled container labeled with the patients name and designated right posterior base of scalp @ hairline. The specimen consists of a shave removal measuring 6x5x2 mm. Jar 0. 3:16 PM [facility] DERMATOPATHOLOGY LABORATORY Microscopic Description Specimen A. SKIN, right posterior base of scalp @ hairline: Within the dermis, there is an infiltrate composed of lymphocytes and histiocytes, including multinucleated type giant cells. Some histiocytes contain flakes of material consistent with keratin. This lesion is present at the margin of the specimen. 3:16 PM [facility] DERMATOPATHOLOGY LABORATORY Disclaimer An external [...] purposes. Billing Codes Specimen Charges Stain Charges 89441 1 3:16 PM [facility] DERMATOPATHOLOGY LABORATORY Embedded Images 3:16 PM [facility] DERMATOPATHOLOGY LABORATORY Pathology/Cytolog y TISSUE SPECIMEN FROM SKIN / Unknown 08/17/2024 08/20/2024 2:20 PM DISHWASHER Carroll Jamison MD LAB - PATHOLOGY/CYTOLOGY ORD ERABLES Final Result DERMATOPATHOLOGY LABORATORY [facility] - Department of Dermatology [address] [phone] documented in this encounter Visit Diagnoses Not on filedocumented in this encounter Care Teams Contemporary Or Modern Dancer Relationship Specialty Start Date End Date Nemo Luu MD [address] [place] [phone] PCP - General 02/21/15 documented as of this encounter
--- OUTSIDE RECORDS SUMMARY | 2025-10-04 11:03 | XMS_ITS | Data Portability ---
Author Organization [facility] Morris PETERSON_Bernarda_ Address [address] [place] [address] Assessment No assessment recorded. Plan of Treatment Reminders Order Date Submit Date Provider Last Modified By Organization Details Last Modified Time Details Appointments None recorded. Lab rapid strep group A, throat 2017 018 [id number] In-Office Order, Internal Use Only DO Not Attach Compendium DO Not Attach Compendium, Do Not Delete/merge, 8 13:50:23 Referral None recorded. Procedures pulse oximetry (PROC) 2017 018 In-Office Order, Internal Use Only DO Not Attach Compendium DO Not Attach Compendium, Do Not Delete/merge, 8 13:50:23 Surgeries None recorded. Imaging None recorded. Medication Orders fluticason e propionate 50 mcg/actuat ion nasal spray,susp ension 2017 018 INTERFACE [id number], [address] [place], [address], 8 14:00:58 azithromyc in 250 mg tablet 2017 018 INTERFACE [id number], [address] [place], [address], 8 14:08:12 Patient TargetsNo targets recorded. Patient InstructionsNo instructions recorded. Reason for Referral None Reported. Results Created Date Observation Date Name Description Value Unit Range Abnormal Flag Note LastModifiedBy Organization Detail LastModifiedTime 01/22/20 18 2018 rapid strep group A, throa t Strep negati ve Not Available In-Office Order Internal Use Only DO Not Attach Compendium DO Not Attach Compendium, Do Not Delete/merge, [id number] 2018 13:38:31 01/22/20 18 2018 pulse oxime try (PROC ) pulse oximetry 97% room air at rest Not Available In-Office Order Internal Use Only DO Not Attach Compendium DO Not Attach Compendium, Do Not Delete/merge, [id number] 2018 13:38:04 Result Notes None recorded. Problems Name Problem SNOMED Code Status Onset Date Resolution Date Notes Provider Name and Address Organization Details Recorded Time Kidney disease 94430128 Active 018 Mandy haque [place] - [facility] 2018 13:28:52 Problem Notes None recorded. Procedures Surgical History Date Name Laterality Status Provider Name and Address Organization Details Recorded Time Carpal tunnel surgery completed Mandy Bellamy [place] - [facility] 2018 13:57:29 Breast Biopsy completed Mandy Bellamy [place] - [facility] 2018 13:57:37 delivery completed Mandy Bellamy [place] - [facility] 2018 13:57:57 Hysterectomy completed Mandy Bellamy [place] - [facility] 2018 13:58:36 Imaging Results None [...] weight Heart rate Body temperature Oxygen saturation Respiratory rate Systolic And Diastolic Provider Name and Address Organization Details Last Updated DateTime 8 154.94 cm 27 kg/m2 47930.9 9 g 79 /min 99.1 [degF] 97 % 14 /min 114/68 mm[Hg] Mandyerlinda Bellamy [place] - [facility] 8 13:27:32 Social History Question Answer Notes LastModified by Organizat ion Details LastModified Time Tobacco Smoking Status Never Smoker Mandy Bellamy garland [facility] 2018 13:56:23 Do You Have An Advance Directive? No [email or web address] Information not available 2018 What Is Your Level Of Caffeine Consumption? Moderate [email or web address] Information not available 2018 How Much Tobacco Do You Chew? None [email or web address] Information not available 2018 What Type Of Diet Are You Following? REGULAR [email or web address] Information not available 2018 Which Illicit Or Recreational Drugs Have You Used? None [email or web address] Information not available 2018 Have You Directly Handled Bats, Rodents, Or Primates From Ebola Endemic Areas? No [email or web address] Information not available 2018 Have You Had Contact With Blood, Bodily Fluids, Or Human Remains Of A Patient Known To Have Or Suspected To Have Ebola Virus Disease? No [email or web address] Information not available 2018 Do You Reside In Or Have You Traveled To An Area Where Ebola Virus Transmission Is Active? No [email or web address] Information not available 2018 Education 4 Year College Information not available 2018 Live Alone Or With Others? Alone [email or web address] Information not available 2018 Marital Status [email or web address] Informatio n not available 2018 What Was The Date Of Your Most Recent Tobacco Screening? 2018 Information not available 05/03/2019 How Much Tobacco Do You Smoke? No [email or web address] Information not available 2018 How Many Years Have You Smoked Tobacco? 0 [email or web address] Information not available 2018 Work Related Injury? No [email or web address] Information not available 2018 Sex: Unknown Functional Status Question Answer Note LastModified by Organization D etails LastModified Time What is your level of alcohol consumption? None Information not available 2018 What is your occupation? Retired [email or web address] Information not available 2018 What is your exercise level? Moderate [email or web address] Information not available 2018 Mental Status None recorded. Family History Nothing Reported. Medical History Condition Response Coronary Artery Disease N Gout N Kidney Stones N Hyperthyroidism N Erectile Dysfunction N COPD N Depression N Hypothyroidism N Developmental or Behavioral Disorders N Has Pacemaker N Diabetes - Non-insulin N Eczema, Hives or other skin conditions N Anxiety Disorder N Muscle, Joint, or Bone Problems N Vision or Eye Problems N Arthritis N Congenital Anomalies N Cancer N Stroke N Bladder or Kidney Problems N High Cholesterol N Liver Disease N Dialysis N Fibromyalgia N Kidney Disease Y Ear or Hearing Problems N Leg/Foot Ulcer N Hypogonadism N ADD or ADHD N Thyroid Problems N Skin Problems N Anemia N Constipation N Blood Clots or DVT N Diabetes N Bleeding Disorder N Seizures/Epilepsy N Tuberculosis N Diabetes - Insulin N Diverticulitis N Heart Attack N Allergies N Asthma N GERD/Reflux N Heart Disease N Pulmonary Embolism N Hypertension N Osteoporosis N Gynecological HistoryNo gynecological history recorded. Obstetrics History GPAL:G 0 P 0 0 0 0 Past Encounters Encounter ID Performer Location Encounter Start Date Encounter Closed Date Diagnosis/Indication Diagnosis SNOMED-CT Code Diagnosis ICD10 Code Diagnosis IMO Codes Diagnosis Note [id number] Mari Angela PA-C [facility] [place] [address] [place] [address] [place] [address] 2018 13:16:28 2018 14:07:00 Acute pharyngitis 774987537 J02.9 Complete antibiotic . Return to clinic should s/s worsen or not resolve. Advised to use OTC tylenol for sore throat and saline gargles. Seasonal a llergic rhinitis 516583040 J30.2 Use medication as directed. Health Concerns Section Related Observation LastModified by Organization Detai ls LastModified Time None Recorded Concern Status LastModified by Organization Details LastModified Time None Recorded Advance Directives Directive N: Payers Insurance Date Sequence Insurance Name Policy Number Policy Welsh Covered Member ID Welsh Member ID Guarantor Name 04/06/[address] [facility] [id number] Meme Temple [id number] Meme Temple Notes Date Note Type Note Provider Name and Address Organization Details Recorded Time 2018 text/html Sore ThroatRepor kendall by PatientHPIFor quality, patient reportspainful,diffi culty swallowing,hoarsenes s, anddull(scratchy). For severity, patient reportsmoderate. For associated symptoms, patient reportscough,throat hoarseness, anditching throatbut reportsno fever,no nausea,no vomiting,no choking, andno rash. For location, patient reportsbilateral. For onset/timing, patient reportssudden. For duration, patient reportsstarted 1 day(s) ago. For context, patient reportsno tick/insect bites,no new medications, andno one else with similar symptoms. 73 YO female presents today for sore throat x 1 day. Mari Angela [facility], [facility] 2018 14:23:21 OBGyn Episode No OBEpisode recorded.
--- OUTSIDE RECORDS SUMMARY | 2025-10-04 11:03 | XMS_ITS | Clinical Summary ---
Author Organization [facility] Address [address] [place] [address] Phone Care Team Providers Care Ferryboat Helper Name Role Phone Deepthi Benites MD Primary Care Provider [phone] Allergies No known active allergies Medications B Wajvdjs-Lefatw-IH (SUPER B-50 B COMPLEX) capsule 11/22/19 13 [...] Comments Blood Pressure 128/70 09/12/2019 1:05 PM TV TECHNICIAN Pulse 84 09/12/2019 1:05 PM TV TECHNICIAN Temperature 35.7 C (96.3 F) 09/12/2019 1:05 PM TV TECHNICIAN Respiratory Rate 14 11/20/2012 12:01 AM TV TECHNICIAN Oxygen Saturation - - Inhaled Oxygen Concentration - - Weight 65.3 kg (144 lb) 09/12/2019 1:05 PM TV TECHNICIAN Height 154.9 cm (5' 1) 09/12/2019 1:05 PM TV TECHNICIAN Body Mass Index 27.21 09/12/2019 1:05 PM TV TECHNICIAN Plan of Treatment Health Maintenance Due Date Last Done Comments Influenza Vaccine (#1) 2025 07/18/2015, 2013 Pneumococcal PPSV23/PCV13 65 + Years / Low and Medium Risk Completed 12/13/2016, 07/25/2012, 07/10/2006, Additional history exists Insurance [employer] MEDICARE Care Teams Ferryboat Helper Relationship Specialty Start Date End Date Deepthi Benites MD [address] [place] [phone] PCP - General Internal Medicine 09/12/19
--- OUTSIDE RECORDS SUMMARY | 2025-10-04 11:03 | XMS_ITS | Clinical Summary ---
Author Organization [facility] Address [address] [place] [address] Care Team Providers Care Propagator Name Role Phone Nemo Luu MD Primary Care Provider Source Comments [facility],non-owned Affiliates and Associated Physician Practices is amultiple site organization consisting of ambulatory clinics and hospital sitesin [place], [place], [place] and [place]. This disclosure is being madepursuant to the Care Everywhere program and may not contain all information available regarding this patient. Last updated 18.[facility] Social History Tobacco Use Types Packs/Day Years Used Date Smoking Tobacco: Never Assessed Comments Unknown Sex and Gender Information Value Date Recorded Sex Assigned at Not on file Legal Sex Female 6:18 PM [employer] Gender Identity Not on file Sexual Orientation [...] CALENDAR YEAR 2024 COVID-19 VACCINE ( - 2024-2 6 season) 2025 INFLUENZA VACCINE (#1) 2025 HEPATITIS [...] topic Insurance [employer] MED[employer]ARE ADV Care Teams Propagator Relationship Specialty Start Date End Date Nemo Luu MD [address] [place] [id number] PCP - General 02/21/15
--- OUTSIDE RECORDS SUMMARY | 2025-10-04 11:03 | XMS_ITS | Clinical Summary ---
Author Organization [facility] Address [address] [place] [id number] Care Team Providers Care Director Of Enterprise Applications Name Role Phone Unavailable Primary Care Provider [...] - 1-dose 75+ series) 2021 COVID-19 Vaccine ( - 2024-2 6 season) 2025 Influenza Adult (#1) 2025 Hepatitis A Vaccines Aged Out No long er eligible based on patient's age to complete this topic Meningococcal B Vaccine Aged Out No l onger eligible based on patient's age to complete this topic Meningococcal Vaccine Aged Out No michelle brad eligible based on patient's age to complete this topic RSV Immunizations Under 20 Months Aged Out No longer eligible based on patient's age to complete this topic
== END 2025-10-04 11:02 | disposition home or self-care (01) ==
LOC: ANHAUDASC 11:02
PROVIDERS: PCP Clinical Nurse Specialist; Visit Provider Otolaryngology
DX: H90.3 Sensorineural hearing loss, bilateral (principal)
CPT/HCPCS: 92557